=== PATIENT | female | born 1975 | race Caucasian/White ===

== ENCOUNTER 2024-11-24 15:40 | Emergency (ER) | payer OTHER, SELFPAY ==
[2024-11-24 15:57] VITALS: BP 131/64; BP 162/78; PULSE 70; PULSE 90; RESP 18; TEMP 36.6; O2SAT 96; O2SAT 97; BMI 39.7
--- NOTE | 2024-11-24 16:09 | ED_ITS ---
HPI - Extremity Problem General Chief complaint: Extremity Injury, Upper Stated complaint: Bleeding from dialysis fistula Time Seen by Provider: 11/24/24 15:59 Source: patient, RN notes reviewed and old records reviewed Mode of arrival: ambulatory History of Present Illness ED Provider: Diane Cruz PA-C HPI Narrative: 49-year-old female with a past medical history ESRD on HD (M/W/F), on Coumadin, presenting to the ED via EMS complaining bleeding from dialysis fistula since this morning s/p full dialysis session. Reports intermittent bleeding since finishing dialysis at 09:30. States was able to control briefly at home with direct pressure. Admits to similar symptoms happening in the past. Denies lightheadedness/dizziness, injury, trauma, fall. Last INR unknown Related Data Allergies Allergy/AdvReac Type Severity Reaction Status Date / Time egg [EGG] Allergy Severe ANGIOEDEMA Verified 11/24/24 19:47 influenza virus vaccine, Allergy Severe ANAPHYLAXIS Verified 11/24/24 19:47 specific [Influenza Virus Vacc,Specific] Review of Systems 2 Review of Systems: Yes all other systems are reviewed and are negative Constitutional: Constitutional: Reports as per HPI [facility] Past Medical History Attestation statement: The following information was validated with the patient. Source: old records reviewed Social History Social History Smoked in Last 30 Days: No Use of substances other than those prescribed or required for medical reasons: No Advance Directives: No Advance Directives Information Provided: Yes Patient : No Physical Exam 2 Vital Signs: Vital Signs: Last Vital Signs Temp 98.5 F 11/24/24 22:20 Pulse 77 11/24/24 22:20 Resp 17 11/24/24 22:20 BP 152/78 H 11/24/24 22:20 Pulse Ox 98 11/24/24 22:20 O2 Del Method Room Air 11/24/24 22:20 BMI result Body Mass Index 39.7 Const: General: cooperative, healthy appearing and no acute distress O rientation/consciousness: patient oriented x3 Limitations: no limitations HEENT: Head: Yes normal to inspection and Yes atraumatic Ears: hearing grossly normal bilaterally General nose exam: Normal external nose present Face and sinus: Yes normal facial exam Eyes: General: appearance normal, both eyes and all related structures EOM: EOMs intact bilaterally Neck: Neck: Yes normal visual inspection and Yes no meningeal signs Resp: Effort & Inspection: normal respiratory effort and no respiratory distress Auscultation: clear to auscultation bilaterally Cardio: Rate: regular rate Heart sounds: S1 normal heart sound present and S2 normal heart sound present Skin: Other: + patient had noted to RUE, dressing rem jennifer, no active bleeding, however patient has started bleeding after coughing. Rashes: no rashes Wounds: no wounds Neuro: General: patient oriented x3, tone normal and no meningeal signs C ranial nerves: Yes CN's II-XII intact bilaterally Gait exam (Neuro): Normal gait present Extrem: General: Yes normal to inspection Course Course Course Narrative: -1651--no leukocytosis. H/H stable. Chronic CKD > had full dialysis today -1649--on re-evaluation active bleeding still appreciated with removal of pressure dressing > Surgicel and pressure dressing reapplied -1714--INR elevated >26, PT >320 --patient states she is on Coumadin for dialysis. States last INR check was Wednesday & was 2.5. Denies headache at present. Acting appropriate. > case d/w ED Attending Dr. Rangel, will repeat lab to ensure accuracy. Based on up-to-date recommendations options for minimal bleeding in the setting of INR greater than 5 include withholding Coumadin, holding Coumadin and giving vitamin K or more aggressive reversal therapies in the setting of significant bleeding -repeat INR 5.8, PT 68 >1814--pressure dressing removed. Surgicel still intact, no active bleeding. We will continue to monitor -2008--patient is still without any active bleeding. Instructed patient to hold her Coumadin dose tonight and tomorrow with repeat INR at dialysis (states her INR is supposed to be between 2.5 - 3). Strict return precautions discussed. Patient comfortable for discharge home at this time Results discussed with patient including worrisome signs and symptoms and strict return precautions, and when to return to the emergency department. They verbalized understanding and feel safe for discharge at this time. Medical Decision Making Medical Decision Making MDM Narrative: 49-year-old female with a past medical history ESRD on HD (M/W/F), on Coumadin, presenting to the ED via EMS complaining bleeding from dialysis fistula since this morning around 0930 s/p full dialysis session. On exam vital signs stable NAD, nontoxic appearing, recurred after coughing in the ED, was previously controlled with direct pressure. Direct pressure reapplied with ABD pad and Gomez wrap. R/o anemia. No evidence of infection Plan: Labs, observe and re-evaluate Please refer to course for remaining clinical decision making, interpretation of labs/imaging results, and discussions with consultants and/or family members. Differential Diagnosis Differential Diagnoses: The differential diagnosis associated with the presentation includes As above Admission/Observation Consideration of admission/observation: Escalation of care including admission/observation considered Lab Data MDM Lab Attestation statement: I reviewed the patient's lab results. 11/24/24 16:21 11/24/24 16:21 Labs: Lab Results 11/24/24 11/24/24 Range/Units 16:21 17:22 WBC 5.6 (4.8-10.8) X10*3/uL RBC 3.57 L (4.20-5.50) X10*6/uL Hgb 11.0 L (12.0-16.0) g/dl Hct 34.5 L (37.0-47.0) % MCV 96.6 (80.0-98.0) fL MCH 30.8 (27.0-33.0) pg MCHC 31.9 (31.0-35.0) g/dl RDW 17.1 H (11.0-16.0) % Plt Count 153 L (160-400) X10*3/uL MPV 12.2 (9.4-12.3) fL Immature Gran % (Auto) 0.5 H (0.0-0.4) % Neut % (Auto) 74.2 H (45-73) % Lymph % (Auto) 12.8 L (20-40) % [place] % (Auto) 6.5 (2-11) % Eos % (Auto) 5.6 H (0-4) % Baso % (Auto) 0.4 (0-2) % Lymph # (Auto) 0.7 L (1.2-4.9) X10*3/uL [place] # (Auto) 0.4 (0.1-1.2) X10*3/uL Eos # (Auto) 0.3 (0.0-0.4) X10*3/uL Baso # (Auto) 0.0 (0.0-0.2) X10*3/uL Abs Immat Gran (auto) 0.03 (0.00-0.03) X10*3/uL Absolute Neuts (auto) 4.1 (2.0-8.3) x10*3/uL Absolute Nucleated RBC 0.000 (0.0-0.012) X10*3/uL Nucleated RBC % (auto) 0.0 (0.0-0.2) /100WBC PT > 320.0 H 68.0 H D (10.9-12.4) SEC INR > 26.0 H* 5.8 H* D (0.9-1.1) Sodium 140 (135-145) mmol/L Potassium 3.9 (3.3-5.1) mmol/L Chloride 101 (96-108) mmol/L Carbon Dioxide 28 (22-29) mmol/L Anion Gap 15 (12-20) BUN 15 (9-16) mg/dL Creatinine 4.60 H* (0.5-1.4) mg/dL Estim Creat Clear Calc 18.3 Estimated GFR 10 Random Glucose 113 (60-115) mg/dL Calcium 7.7 L (8.4-10.2) mg/dL Radiology Impression Discussion of test interpretation with radiology: I have reviewed the radiologist's reading. External Record Review External record reviewed: Inpatient record, Office record, Outpatient record, Prior outpatient labs, Prior outpatient radiology, Primary care record and Outside ED record Tests considered The following testing was considered but not selected: As above Chronic Conditions Patient?s care impacted by: Other (ESRD on HD) Social Determinants Patient?s care significantly limited by Social Determinants of Health including: Other Social Determinant of Health Critical Care Time Critical Care Time Critical Care Time: Yes Total Critical Care Time: 40 Attestation: I have personally provided critical care time exclusive of time spent on separately billable procedures. Time includes review of lab data, radiology results, discussion with consultants, and monitoring for potential decompensation. Intervention performed as documented. Discharge Plan Discharge Clinical Impression: Hemorrhage of arteriovenous fistula, Supratherapeutic INR Patient Disposition: Home, Self-Care Instructions: Elevated INR (ED) Additional Instructions: YOUR INR WAS ELEVATED TO 5.8 TODAY. PLEASE HOLD YOUR COUMADIN TONIGHT AND TOMORROW WITH REPEAT INR AT DIALYSIS Surgicel can be removed at dialysis, please apply saline/water to area prior to removing Surgicel/dressing If bleeding recurs, you are soaking through dressing, you have lightheadedness/dizziness return to the ED immediately Referrals: Physician,Unknown J [Primary Care Provider] - 2 days Interventions: ED Discharge Assessment Last Done: 11/24/24 22:20 Discharge Date/Time: 11/24/24 22:21 Print Language: Surinamese
[2024-11-24 16:27] LABS: MANUAL DIFF FLAG NO
[2024-11-24 16:28] LABS: Basophils Percent Auto 0.4 % (0-2); Eosinophils Absolute Auto 0.3 X10*3/uL (0.0-0.4); Eosinophils Percent Auto 5.6 % (0-4); Hematocrit 34.5 % (37.0-47.0); Imm Gran Abs Auto 0.03 X10*3/uL (0.00-0.03); Imm Gran Pct Auto 0.5 % (0.0-0.4); Lymphocytes Absolute Auto 0.7 X10*3/uL (1.2-4.9); Lymphocytes Percent Auto 12.8 % (20-40); Mean Corpuscular HGB Conc 31.9 g/dl (31.0-35.0); Mean Corpuscular Hemoglobin 30.8 pg (27.0-33.0); Mean Corpuscular Volume 96.6 fL (80.0-98.0); Mean Platelet Volume 12.2 fL (9.4-12.3); Monocytes Absolute Auto 0.4 X10*3/uL (0.1-1.2); Monocytes Percent Auto 6.5 % (2-11); Neutrophils Absolute Auto 4.1 x10*3/uL (2.0-8.3); Neutrophils Percent Auto 74.2 % (45-73); Platelet Count 153 X10*3/uL (160-400); Red Blood Count 3.57 X10*6/uL (4.20-5.50); Red Cell Distribution Width 17.1 % (11.0-16.0); White Blood Count 5.6 X10*3/uL (4.8-10.8)
[2024-11-24 16:46] LABS: Anion Gap 15 (12-20); Blood Urea Nitrogen 15 mg/dL (9-16); Calcium 7.7 mg/dL (8.4-10.2); Carbon Dioxide 28 mmol/L (22-29); Chloride 101 mmol/L (96-108); Creatinine Clr Calc Pharmacy 18.3; Estimated Glomerular Filt Rate 10; Glucose Random 113 mg/dL (60-115); Potassium 3.9 mmol/L (3.3-5.1); Sodium 140 mmol/L (135-145)
--- OUTSIDE RECORDS SUMMARY | 2024-11-24 16:55 | XMS_ITS | Encounter Summary ---
Author Organization [facility] Address [address] [place] [address] Care Team Providers Care Dye Blender Name Role Phone Jose Amaya Primary Care Provider Reason for Visit * Reason Comments Care Coordination This CHW contacted t he Encounter Details Date Type Department Care Team (Late st Contact Info) Description 02/02/2017 Interim Notes [facility] [address] [place] [address] Kristy Mesa, Community Health Worker [address] [place] [address] Social History Tobacco Use Types Packs/Day Years Used Date Smoking Tobacco: Former Smokeless Tobacco: Never Alcohol Use Standard Drinks/Week Comments No 0 (1 standard drink = 0.6 oz pur e alcohol) Comments No Sex and Gender Information Value Date Recorded Sex Assigned at Male 06/04/2017 11:11 AM PDT Legal Sex Female 11:57 AM PDT Gender Identity Male 06/04/2017 11:11 AM PDT Sexual Orientation Straight 06/04/2017 11 :11 AM PDT Occupation Industry Job Start Date Job End Date disabled Not on file Not on file Not on file documented as of this encounter Plan of Treatment Not on file documented as of this encounter Visit Diagnoses Not on filedocumented in this encounter Care Teams Dye Blender Relationship Specialty Start Date End Date Jose Amaya PA [address] [place] [address] PCP - General Internal Medicine 01/18/17 10/03/24 documented as of this encounter
--- OUTSIDE RECORDS SUMMARY | 2024-11-24 16:56 | XMS_ITS | Encounter Summary ---
Author Organization [facility] Address [address] [place] [address] Care Team Providers Care Psychological Operations Officer Name Role Phone Jose Amaya Primary Care Provider [phone] Reason for Visit * Reason Comments Care Coordination contacted the [facility] regarding Dialysis Center transfer. Encounter Details Date Type Department Care Team (Late st Contact Info) Description 02/19/2017 Interim Notes [facility] [address] [place] [address] Kristy Mesa, Community Health Worker [address] [place] [address] Social History Tobacco Use Types Packs/Day Years [...] on filedocumented in this encounter Care Teams Psychological Operations Officer Relationship Specialty Start Date End Date Jose Amaya PA [address] [place] [address] PCP - General Internal Medicine 01/18/17 10/03/24 documented as of this encounter
--- OUTSIDE RECORDS SUMMARY | 2024-11-24 16:56 | XMS_ITS | Encounter Summary ---
Author Organization [facility] Address [address] [place] [address] Care Team Providers Care Director On Air Name Role Phone Jose Amaya Primary Care Provider [phone] Reason for Visit * Reason Comments Care Coordination CHW returned patient s message. Encounter Details Date Type Department Care Team ([facility] st Contact Info) Description 02/19/2017 Interim Notes [facility] [address] [place] [address] Kristy Mesa, Community Health Worker [address] [place] [address] Social History Tobacco Use Types Packs/Day Years [...] on filedocumented in this encounter Care Teams Director On Air Relationship Specialty Start Date End Date Jose Amaya PA [address] [place] [address] PCP - General Internal Medicine 01/18/17 10/03/24 documented as of this encounter
--- OUTSIDE RECORDS SUMMARY | 2024-11-24 16:56 | XMS_ITS | Encounter Summary ---
Author Organization [facility] Address [address] [place] [address] Care Team Providers Care Post Closer Name Role Phone Jose Amaya Primary Care Provider [phone] Reason for Visit * Reason Comments Care Coordination This CHW contacted t he patient to follow up on the patients Dialysis Center transfer. Encounter Details Date Type Department Care Team (Late st Contact Info) Description 02/10/2017 Interim Notes [facility] [address] [place] [address] Kristy Mesa, Community Health Worker [address] [place] [address] Social History Tobacco Use Types Packs/Day Years [...] on filedocumented in this encounter Care Teams Post Closer Relationship Specialty Start Date End Date Jose Amaya PA [address] [place] [address] PCP - General Internal Medicine 01/18/17 10/03/24 documented as of this encounter
--- OUTSIDE RECORDS SUMMARY | 2024-11-24 16:56 | XMS_ITS | Encounter Summary ---
Author Organization [facility] Address [address] [place] [address] Phone Care Team Providers Care Sheriff'S Detective Name Role Phone Unavailable Primary Care Provider Unavailabl e Encounter Details Date Type Department Care Team (Late st Contact Info) Description 11/10/2024 Treatment [facility] [address] [place] [address] Dionna Rubio MD [address] [place] [address] End stage renal disease; Dependence on renal dialysis Social History Tobacco Use Types Packs/Day Years Used Date Smoking Tobacco: Never Alcohol Use Standard Drinks/Week Comments No 0 (1 standard drink = 0.6 oz pur e alcohol) Comments Unknown Sex and Gender Information Value Date Recorded Sex Assigned at Not on file Legal Sex Female 5:02 PM EST Gender Identity Not on file Sexual Orientation Not on file documented as of this encounter Miscellaneous Notes * Dialysis Note - Dionna Rubio MD - 11/10/2024 12:00 AM EST Patient: Raine Hair : 1975 Note Type: Dialysis Rounds-Basic Service Date: 11/10/2024 Appropriate patient consent obtained. This patient was personally seen for a basic visit as part of routine monthly dialysis care for end stage renal disease. Attending Finance Accounting Internship: DIONNA RUBIO MD Dialysis Location: [facility] Schedule: Shift: 1 ADEQUACY ASSESSMENT Kt/V, Natural Log 1.26 (10/18/24) 1.30 (09/20/24) 1.24 (08/23/24) UREA REDUCTION RATIO (%) 67 (10/18/24) 69 (09/20/24) 66 (08/23/24) BUN 45 (10/18/24) 54 (09/20/24) 50 (08/23/24) BUN Post Dialysis 15 (10/18/24) 17 (09/20/24) 17 (08/23/24) Creatinine 8.15 (10/18/24) 8.38 (09/20/24) 9.03 (08/16/24) Bicarbonate (CO2) 25 (10/18/24) 26 (09/20/24) 24 (08/16/24) Sodium 139 (10/18/24) 139 (09/20/24) 138 (08/16/24) ANEMIA ASSESSMENT Hgb 10.3 (11/01/24) 10.2 (10/18/24) 9.2 (10/11/24) Iron Saturation (TSat) 28 (10/18/24) 28 (09/20/24) 60 (08/16/24) Ferritin 993 (10/18/24) 980 (09/20/24) 1,102 (08/16/24) Iron 60 (10/18/24) 62 (09/20/24) 122 (08/16/24) TIBC 216 (10/18/24) 221 (09/20/24) 203 (08/16/24) MCV 100.6 (10/18/24) 97.9 (09/20/24) 100.0 (08/16/24) Platelets 143 (10/18/24) 121 (09/20/24) 79 (08/16/24) BMM ASSESSMENT Calcium, Adjusted Total 8.8 10/18/24 8.5 09/20/24 8.5 08/16/24 Calcium 8.8 10/18/24 8.5 09/20/24 8.5 08/16/24 Phosphorus, Serum 5.0 10/18/24 5.0 09/20/24 5.5 08/16/24 Ca*PO4 44.0 10/18/24 42.5 09/20/24 46.8 08/16/24 PTH, Intact 2,899 10/18/24 3,640 09/20/24 3,693 08/16/24 Magnesium 2.0 10/18/24 2.1 09/20/24 2.0 08/16/24 Alkaline Phosphatase 592 10/18/24 559 09/20/24 562 08/16/24 Aluminum 5 09/20/24 NUTRITION ASSESSMENT Albumin 4.1 10/18/24 4.1 09/20/24 4.2 08/16/24 Potassium 4.3 10/18/24 4.4 09/20/24 5.0 08/16/24 ADDITIONAL LABS White Blood Cells 7.0 (10/18/24) 6.5 (09/20/24) 6.2 (08/16/24) Cholesterol 118 (09/20/24) HDL 45 (09/20/24) LDL-Calc 61 (09/20/24) Triglycerides 62 (09/20/24) Hep B Surface Antibody 94 (09/20/24) Uric Acid 6.7 (09/20/24) ADDITIONAL COMMENT COMMENTS: 10/16/24 stable 10/23/24 same issues 11/03/24 no new probs 11/10/24 doing ok 08/28/24 same issues 09/12/24 stable 09/25/24 doing ok 05/17/24 no new issues 05/29/24 stable 06/07/24 doing ok 06/19/24 same issues 06/26/24 stable 07/03/24 no new issurs 07/12/24 stable 07/17/24 same issues 07/29/24 stable 08/02/24 same issues 08/08/24 stable 08/14/24 doing same 08/21/24 no new issues 10/04/24 same issues 10/11/24 stable Signed by: DIONNA RUBIO MD on 11/10/2024 at 11:07:03 PM documented in this encounter Plan of Treatment Not on file documented as of this encounter Visit Diagnoses Diagnosis End stage renal disease Dependence on renal dialysis documented in this encounter
--- OUTSIDE RECORDS SUMMARY | 2024-11-24 16:56 | XMS_ITS | Clinical Summary ---
Author Organization [facility], Address [address] [place] [address] Phone Care Team Providers Care [employer] Inspector Name Role Phone Unavailable Primary Care Provider Unavailabl e Allergies Active Allergy Reactions Criticality Noted Date Comments Egg Yolk Rash High 05/21/2016 Gentamicin 11/13/2020 Influenza Vaccines 11/13/2020 Iodinated Contrast Media 11/13/2020 Levofloxacin Anaphylaxis,Other (s ee comments) High 05/21/2016 Prednisone Other (see comments) 01/07/2021 Respiratory Syncytial Virus Immune Globulin Other (see comments) 01/07/2021 Vancomycin Other (see comments) 05/21/2016 Medications acetaminophen (TYLENOL) 325 MG tablet Take 325 mg by mouth every 4 (four) hours NEEDED 7 Active ammonium lactate (LAC-HYDRIN) 12 % lotion Apply topically Active cetirizine (ZyrTEC) 10 MG tablet 1 Active cholecalciferol (VITAMIN D-3) 1.25 MG (28428 UT) capsule Take 1 capsule by mouth 1 (one) time per week 0 Active cloNIDine (CATAPRES) 0.1 MG tablet Take 1 tablet by mouth 1 (one) time each day 0 Active Docusate Sodium (DSS) 100 MG capsule Take 100 mg by mouth 2 (two) times a day 8 Active fluticasone (FLONASE) 50 MCG/ACT nasal spray 1 spray 2 (two) times a day 1 Active loratadine (Claritin) 10 MG tablet Take 1 tablet by mouth 1 (one) time each day 7 Active levothyroxine (SYNTHROID, LEVOTHROID) 137 MCG tablet Take 1 tablet by mouth 1 (one) time each day Active midodrine (PROAMATINE) 5 MG tablet Take 1 tablet by mouth 0 Active OLANZapine (ZyPREXA) 5 MG tablet Take 1 tablet by mouth every night 8 Active omeprazole (PriLOSEC) [address] capsule Take 20 mg by mouth 1 (one) time each day 7 Active warfarin (COUMADIN) 4 MG tablet Take 2 mg by mouth 1 (one) time each day 7 Active olopatadine (Patanol) 0.1 % ophthalmic solution 1 drop by Other route INTO AFFECTED EYE Active albuterol HFA (PROVENTIL HFA;VENTOLIN HFA) 108 (90 Base) MCG/ACT inhaler 2 puffs every 4 (four) hours 90mcg 1 Active montelukast (SINGULAIR) 10 MG tablet Take 10 mg by mouth Active fluticasone HFA (FLOVENT HFA) 110 MCG/ACT inhaler Inhale 2 puffs 8 Active diphenhydrAMINE (BENADRYL) 50 MG tablet Take 50 mg by mouth Active Clindamycin Phos-Benzoyl Perox gel APPLY TOPICALLY TO OUTBREAKS ON BUTTOCKS IN THE MORNING AND IN THE EVENING 6 Active cycloSPORINE (RESTASIS) 0.05 % ophthalmic emulsion 1 drop Active Banophen 50 MG capsule TAKE 1 CAPSULE BY MOUTH EVERY 6 HOURS NEEDED FOR ITCHING. 1 Active mupirocin (BACTROBAN) 2 % ointment Apply topically 1 (one) time each day 22 g 1 3 Active cloNIDine (CATAPRES) 0.2 MG tabletIndications :Essential (primary) hypertension TAKE 1 TABLET BY MOUTH IN THE MORNING AND TAKE 1 TABLET BY MOUTH IN THE EVENING 30 tablet 1 4 Active doxazosin (CARDURA) 4 MG tablet Take 1 tablet (4 mg total) by mouth 1 (one) time each day 30 tablet 11 4 06/05/20 25 Active sevelamer carbonate (RENVELA) 800 MG tablet TAKE 2 TABLETS BY MOUTH 3 (THREE) TIMES A DAY WITH MEALS 360 tablet 11 4 Active B Ygdzcss-R-Bxiyu Acid (Nephro Vitamins) 0.8 MG tabletIndications :Schizophrenia (HCC) TAKE 1 TABLET BY MOUTH ONCE DAILY 90 tablet 1 4 Active Velphoro 500 MG chewable tablet CHEW AND SWALLOW 1 TABLET 3 (THREE) TIMES A DAY WITH MEALS 90 tablet 1 4 Active carvedilol (COREG) 12.5 MG tablet Take 1 tablet (12.5 mg total) by mouth in the morning and 1 tablet (12.5 mg total) in the evening. Take with meals. 60 tablet 11 5 10/23/19 26 Active Active Problems Problem Noted Date Diagnosed Date Psychotic disorder 01/09/2021 Hypothyroidism 01/09/2021 Essential hypertension 01/09/2021 Hyperparathyroidism due to renal insufficiency 0 01/09/2021 Hyperkalemia 01/09/2021 Gastroesophageal reflux disease 01/09/2021 Libia's thyroiditis 01/09/2021 Anemia in chronic kidney disease 01/09/2021 Disorder of transplanted kidney 01/09/2021 Chronic bronchitis 01/09/2021 Dependence on renal dialysis 01/09/2021 End stage renal disease 01/09/2021 Anxiety state 01/09/2021 Anemia 01/09/2021 Deep venous thrombosis 11/14/2020 Bilateral acquired blindness of eyes 11/14/2020 Moderate persistent asthma 06/04/2017 Long-term current use of anticoagulant 6 History of renal transplant 01/10/2013 Overview (01/09/2021): Overview: Dr Brain herrera.transplant 09/25 It was removed in 2013 , pt is on dialysis Asthma 01/10/2013 Encounters Date Type Department Care Team Description 11/10/2024 Treatment [facility] [address] [phone] Kirill Stoll MD End stage renal disease; Dependence on renal dialysis 11/03/2024 Treatment [facility] [address] [place] [phone] Kirill Stoll MD 10/23/2024 [facility] [address] [phone] Kirill Stoll MD 10/16/2024 Treatment [facility] [address] [phone] Kirill Stoll MD 10/11/2024 Treatment [facility] [address] [address] Kirill Stoll MD 10/04/2024 Treatment [facility] [address] [phone] Kirill Stoll MD 09/25/2024 Treatment [facility] [address] [phone] Kirill Stoll MD 09/15/2024 Treatment [facility] [address] [phone] Kirill Stoll MD 09/12/2024 Treatment [facility] [address] [address] Kirill Stoll MD 08/28/2024 Treatment [facility] [address] [address] Kirill Stoll MD from Last 3 Months Social History Tobacco Use Types Packs/Day Years Used Date Smoking Tobacco: Never Alcohol Use Standard Drinks/Week Comments No 0 (1 standard drink = 0.6 oz pur e alcohol) Comments Unknown Sex and Gender Information Value Date Recorded Sex Assigned at Not on file Legal Sex Female 5:02 PM EST Gender Identity Not on file Sexual Orientation Not on file Last Filed Vital Signs Vital Sign Reading Time Taken Comments Blood Pressure 160/77 01/06/2021 1:57 PM EDT Pulse 93 01/06/2021 1:57 PM EDT Temperature 36.1 ??C (97 ??F) 01/06/2021 1:57 PM EDT Respiratory Rate 18 03/03/2019 12:00 PM EDT Oxygen Saturation 97% 03/03/2019 12:00 PM EDT Inhaled Oxygen Concentration - - Weight 118 kg (260 lb 2.3 oz) 01/06/2021 1:57 PM EDT Height 172.7 cm (5' 8 ) 03/03/2019 12:00 PM EDT Body Mass Index 39.55 03/03/2019 12:00 PM EDT Plan of Treatment Health Maintenance Due Date Last Done Comments Breast Cancer Screening 1973 Hepatitis B Vaccine (1 of 5 - Risk Dialysis 4-dose series) 1993 Pneumococcal Vaccine: Pediat rics (0 to 5 Years) and At-Risk Patients (6 to 64 Years) (2 of 2 - PCV) 06/12/2018 06/12/2017 Colonoscopy (Post-Transplant Patient) 01/09/2021 Mammogram (Post-Transplant Patient) 01/09/2021 Pelvic Exam (Post-Transplant Patient) 01/09/2021 Diabetes: Hemoglobin A1C 10/19/2024 022, 03/18/2022, 12/17/2021, Additional history exists Diabetes: Ophthalmology Exam 10/19/2024 Diabetes: Pedal Pulse Checked 10/19/2024 Diabetes: Sensory Foot Exam 10/19/2024 Diabetes: Visual Foot Exam 10/19/2024 Procedures Procedure Name Priority Date/Time Associated Diagnosis Comments HEMOGLOBIN Routine 11/22/2024 3:00 AM EDT PTH, INTACT Routine 11/15/2024 3:00 AM EST TRANSFERRIN SATURATION Routine 3:00 AM EST PROTEIN, TOTAL, SERUM Routine 11/15/2024 3:00 AM EST MAGNESIUM Routine 11/15/2024 3:00 AM EST ELECTROLYTE PANEL Routine 11/15/2024 3:0 0 AM EST LACTATE DEHYDROGENASE Routine 11/15/2024 3:00 AM EST LIH (HC) Routine 11/15/2024 3:00 AM EST CREATININE, SERUM Routine 11/15/2024 3:0 0 AM EST GLUCOSE, RANDOM Routine 11/15/2024 3:00 AM EST BILIRUBIN, TOTAL Routine 11/15/2024 3:00 AM EST CALCIUM PHOSPHORUS PRODUCT, ADJUSTED (HC) Routine 11/15/2024 3:00 AM EST AST Routine 11/15/2024 3:00 AM EST ALT Routine 11/15/2024 3:00 AM EST ALKALINE PHOSPHATASE Routine 11/15/2024 3:00 AM EST FERRITIN Routine 11/15/2024 3:00 AM EST CBC AND DIFFERENTIAL Routine 11/15/2024 3:00 AM EST KT/V NATURAL LOG, URR (HC) Routine 11/15/2024 3:00 AM EST HEMOGLOBIN AND HEMATOCRIT, BLOOD Routine 11/01/2024 3:00 AM EST PTH, INTACT Routine 10/18/2024 3:00 AM EST TRANSFERRIN SATURATION Routine 3:00 AM EST PROTEIN, TOTAL, SERUM Routine 10/18/2024 3:00 AM EST ELECTROLYTE PANEL Routine 10/18/2024 3:0 0 AM EST MAGNESIUM Routine 10/18/2024 3:00 AM EST LIH (HC) Routine 10/18/2024 3:00 AM EST LACTATE DEHYDROGENASE Routine 10/18/2024 3:00 AM EST CREATININE, SERUM Routine 10/18/2024 3:0 0 AM EST AST Routine 10/18/2024 3:00 AM EST GLUCOSE, RANDOM Routine 10/18/2024 3:00 AM EST BILIRUBIN, TOTAL Routine 10/18/2024 3:00 AM EST ALT Routine 10/18/2024 3:00 AM EST ALKALINE PHOSPHATASE Routine 10/18/2024 3:00 AM EST CALCIUM PHOSPHORUS PRODUCT, ADJUSTED (HC) Routine 10/18/2024 3:00 AM EST FERRITIN Routine 10/18/2024 3:00 AM EST CBC AND DIFFERENTIAL Routine 10/18/2024 3:00 AM EST KT/V NATURAL LOG, URR () Routine 10/18/2024 3:00 AM EST HEMOGLOBIN Routine 10/11/2024 3:00 AM EST HEMOGLOBIN AND HEMATOCRIT, BLOOD Routine 10/04/2024 3:00 AM EST ALUMINUM LEVEL Routine 09/20/2024 3:00 AM EST PTH, INTACT Routine 09/20/2024 3:00 AM EST CONFIRMATION TEST HCV Routine 09/20/2024 3:00 AM EST HEPATITIS C ABS W/REFLEX RNA DETECTR Routine 09/20/2024 3:00 AM EST FERRITIN Routine 09/20/2024 3:00 AM EST HEPATITIS B SURFACE ANTIBODY QUANT Routine 09/20/2024 3:00 AM EST TRANSFERRIN SATURATION Routine 3:00 AM EST URIC ACID Routine 09/20/2024 3:00 AM EST PROTEIN, TOTAL, SERUM Routine 09/20/2024 3:00 AM EST ELECTROLYTE PANEL Routine 09/20/2024 3:0 0 AM EST MAGNESIUM Routine 09/20/2024 3:00 AM EST LIPID PANEL Routine 09/20/2024 3:00 AM EST LIH (HC) Routine 09/20/2024 3:00 AM EST LACTATE DEHYDROGENASE Routine 09/20/2024 3:00 AM EST GLUCOSE, RANDOM Routine 09/20/2024 3:00 AM EST BILIRUBIN, TOTAL Routine 09/20/2024 3:00 AM EST CREATININE, SERUM Routine 09/20/2024 3:0 0 AM EST AST Routine 09/20/2024 3:00 AM EST ALKALINE PHOSPHATASE Routine 09/20/2024 3:00 AM EST ALT Routine 09/20/2024 3:00 AM EST CALCIUM PHOSPHORUS PRODUCT, ADJUSTED (HC) Routine 09/20/2024 3:00 AM EST KT/V NATURAL LOG, URR (HC) Routine 09/20/2024 3:00 AM EST CBC AND DIFFERENTIAL Routine 09/20/2024 3:00 AM EST HEMOGLOBIN Routine 09/08/2024 3:00 AM EST HEMOGLOBIN AND HEMATOCRIT, BLOOD Routine 08/30/2024 3:00 AM EST SPECIAL CHEMISTRY Routine 06/17/2022 6:0 0 AM EDT from Last 3 Months or Most Recently Relevant to Health Maintenance Results * Hemoglobin (11/22/2024 3:00 AM EDT) Only the most recent of3 resultswithin the time period is included. Hgb 11.3 11.2 - 15.7 g/dL [facility] Hemoglobin x 3 33.9 33.6 - 47.1 g/dL [facility] 11/22/2024 3:00 AM EDT 11/23/2024 1:08 PM EDT Kirill Stoll MD LAB BLOOD ORDERABLES Final Re sult [facility] [address] [place] [address] * LIH (11/15/2024 3:00 AM EST) Only the most recent of3 resultswithin the time period is included. Lipemia Normal Normal [facility] Icterus Normal Normal [facility] Hemolysis Normal Normal [facility] 11/15/2024 3:00 AM EST 11/16/2024 3:47 PM EST Kirill Stoll MD LAB [id number] SOLICITED RESULTS Final Result Performing Organization Address City/[facility]/ZIP Co de Phone Number [facility] [address] [place] [address] * (ABNORMAL) Kt/V Natural Log, URR (11/15/2024 3:00 AM EST) Only the most recent of3 resultswithin the time period is included. Treatment Time 250 min [facility] Pre-Weight, lb 111.4 kg [facility] Post-Weight, lb 107.0 kg [facility] Ultrafiltration Rate 10 <=13 mL/kg/hr [facility] Comment: Recommend achieving Ultrafiltration Rate (UFR) <=10 mL/kg/hr References: Rhonda MOSS et al. Kidney Int. 2010; 79(2):250-257 BUN 54(H) 7 - 25 mg/dL [facility] BUN Post Dialysis 17 7 - 25 mg/dL [facility] UREA REDUCTION RATIO (%) 69 >=65 % [facility] Kt/V Natural Log 1.39 >=1.2 [facility] 11/15/2024 3:00 AM EST 11/16/2024 3:45 PM EST Kirill Stoll MD LAB [id number] SOLICITED RESULTS Final Result Performing Organization Address [facility] de Phone Number [facility] [address] [place] [address] * (ABNORMAL) Calcium Phosphorus Product, Adjusted (11/15/2024 3:00 AM EST) Only the most recent of3 resultswithin the time period is included. Albumin 4.1 3.6 - 5.4 g/dL [facility] Calcium 8.5(L) 8.6 - 10.3 mg/dL [facility] Phosphorus, Serum 5.3(H) 2.5 - 5.0 mg/dL [facility] Ca*PO4 45.0 <55.0 mg2/dL2 [facility] Calcium, Adjusted Total 8.5(L) 8.6 - 10.3 mg/dL [facility] CA*PO4 CORRCTD 45.0 <55.0 mg2/dL2 [facility] 11/15/2024 3:00 AM EST 11/16/2024 3:47 PM EST Kirill Stoll MD LAB [id number] SOLICITED RESULTS Final Result Performing Organization Address [facility] de Phone Number [facility] [address] [place] [address] * (ABNORMAL) TSAT (11/15/2024 3:00 AM EST) Only the most recent of3 resultswithin the time period is included. Iron 57 50 - 170 ug/dL [facility] Transferrin 128(L) 250 - 380 mg/dL [facility] TIBC 179(L) 211 - 406 ug/dL [facility] Iron Saturation (TSat) 32 22 - 52 % [facility] 11/15/2024 3:00 AM EST 11/16/2024 3:47 PM EST us Kirill Stoll MD LAB BLOOD ORDERABLES Final Re sult [facility] [address] [place] [address] * (ABNORMAL) CBC and Differential (11/15/2024 3:00 AM EST) Only the most recent of3 resultswithin the time period is included. DIFFERENTIAL MANUAL, 2 Not Indicated [facility] White Blood Cells 7.3 4.0 - 10.0 K/uL [facility] RBC 3.46(L) 3.93 - 5.22 M/uL [facility] Hgb 11.0(L) 11.2 - 15.7 g/dL [facility] Hemoglobin x 3 33.0(L) 33.6 - 47.1 g/dL [facility] Hematocrit 35.1 34.1 - 44.9 % [facility] MCV 101.4(H) 79.4 - 94.8 fL [facility] MCH 31.8 25.6 - 32.2 pg [facility] MCHC 31.3(L) 32.2 - 35.5 g/dL [facility] Platelets 124(L) 182 - 369 K/uL [facility] RDW 17.8(H) 11.7 - 14.4 % [facility] Neutrophils Relative 80.4(H) 34.0 - 71.1 % [facility] Lymphocytes Relative 8.2(L) 19.3 - 51.7 % [facility] Monocytes 6.7 4.7 - 12.5 % [facility] Eosinophils Relative 3.8 0.7 - 5.8 % [facility] Basophils Relative 0.5 0.1 - 1.2 % [facility] Immature Granulocytes 0.4 0.0 - 1.0 % [facility] 11/15/2024 3:00 AM EST 11/16/2024 3:45 PM EST us Kirill Stoll MD LAB BLOOD ORDERABLES Final Re sult Performing Organization Address [facility] de Phone Number [facility] [address] [place] [address] * ALT (11/15/2024 3:00 AM EST) Only the most recent of3 resultswithin the time period is included. ALT (SGPT) 23 10 - 49 U/L [facility] 11/15/2024 3:00 AM EST 11/16/2024 3:47 PM EST us Kirill Stoll MD LAB BLOOD ORDERABLES Final Re sult Performing Organization Address [facility] de Phone Number [facility] [address] [place] [address] * AST (11/15/2024 3:00 AM EST) Only the most recent of3 resultswithin the time period is included. AST (SGOT) 23 <34 U/L [facility] 11/15/2024 3:00 AM EST 11/16/2024 3:47 PM EST us Kirill Stoll MD LAB BLOOD ORDERABLES Final Re sult Performing Organization Address [facility] de Phone Number [facility] [address] [place] [address] * Protein, total (11/15/2024 3:00 AM EST) Only the most recent of3 resultswithin the time period is included. Total Protein 7.0 6.4 - 8.9 g/dL [facility] 11/15/2024 3:00 AM EST 11/16/2024 3:47 PM EST us Kirill Stoll MD LAB BLOOD ORDERABLES Final Re sult Performing Organization Address [facility] de Phone Number [facility] [address] [place] [address] * (ABNORMAL) Alkaline phosphatase (11/15/2024 3:00 AM EST) Only the most recent of3 resultswithin the time period is included. Alkaline Phosphatase 554(H) 46 - 116 U/L [facility] 11/15/2024 3:00 AM EST 11/16/2024 3:47 PM EST Kirill Stoll MD LAB BLOOD ORDERABLES Final Re sult Performing Organization Address [facility] de Phone Number [facility] [address] [place] [address] * (ABNORMAL) PTH, Intact (11/15/2024 3:00 AM EST) Only the most recent of3 resultswithin the time period is included. PTH, Intact 3,382(H) 160 - 721 pg/mL [facility] Comment: Suggested (KDIGO) ESRD maintenance range is two to nine times the upper normal limit (80.1 pg/mL) for the laboratory. 11/15/2024 3:00 AM EST 11/16/2024 3:47 PM EST us Kirill Stoll MD LAB BLOOD ORDERABLES Final Re sult Performing Organization Address [facility] de Phone Number [facility] [address] [place] [address] * Magnesium (11/15/2024 3:00 AM EST) Only the most recent of3 resultswithin the time period is included. Magnesium 2.0 1.9 - 2.7 mg/dL [facility] 11/15/2024 3:00 AM EST 11/16/2024 3:47 PM EST Kirill Stoll MD LAB BLOOD ORDERABLES Final Re sult Performing Organization Address [facility] de Phone Number [facility] [address] [place] [address] * (ABNORMAL) Lactate dehydrogenase (11/15/2024 3:00 AM EST) Only the most recent of3 resultswithin the time period is included. LDH 356(H) 120 - 246 U/L [facility] 11/15/2024 3:00 AM EST 11/16/2024 3:47 PM EST Kirill Stoll MD LAB BLOOD ORDERABLES Final Re sult Performing Organization Address [facility] Co de Phone Number [facility] [address] [place] [address] * (ABNORMAL) Glucose, random (11/15/2024 3:00 AM EST) Only the most recent of3 resultswithin the time period is included. Glucose 130(H) 74 - 109 mg/dL [facility] 11/15/2024 3:00 AM EST 11/16/2024 3:47 PM EST Kirill Stoll MD LAB BLOOD ORDERABLES Final Re sult Performing Organization Address [facility] de Phone Number [facility] [address] [place] [address] * (ABNORMAL) Ferritin (11/15/2024 3:00 AM EST) Only the most recent of3 resultswithin the time period is included. Ferritin 1,327(H) 10 - 291 ng/mL [facility] 11/15/2024 3:00 AM EST 11/16/2024 3:47 PM EST Kirill Stoll MD LAB BLOOD ORDERABLES Final Re sult Performing Organization Address [facility] Co de Phone Number [facility] [address] [place] [address] * (ABNORMAL) Creatinine, serum (11/15/2024 3:00 AM EST) Only the most recent of3 resultswithin the time period is included. Creatinine 8.84(H) 0.55 - 1.02 mg/dL [facility] 11/15/2024 3:00 AM EST 11/16/2024 3:47 PM EST Kirill Stoll MD LAB BLOOD ORDERABLES Final Re sult Performing Organization Address [facility] Co de Phone Number [facility] [address] [place] [address] * Bilirubin, total (11/15/2024 3:00 AM EST) Only the most recent of3 resultswithin the time period is included. Total Bilirubin 0.4 0.3 - 1.2 mg/dL [facility] 11/15/2024 3:00 AM EST 11/16/2024 3:47 PM EST Kirill Stoll MD LAB BLOOD ORDERABLES Final Re sult Performing Organization Address [facility] de Phone Number [facility] [address] [place] [address] * Electrolyte panel (11/15/2024 3:00 AM EST) Only the most recent of3 resultswithin the time period is included. Sodium 139 136 - 145 mEq/L [facility] Potassium 4.5 3.4 - 5.0 mEq/L [facility] Chloride 102 98 - 107 mEq/L [facility] Bicarbonate (CO2) 24 21 - 31 mEq/L [facility] Anion Gap 13 3 - 14 mEq/L [facility] 11/15/2024 3:00 AM EST 11/16/2024 3:47 PM EST Kirill Stoll MD LAB BLOOD ORDERABLES Final Re sult Performing Organization Address [facility] de Phone Number [facility] [address] [place] [address] * (ABNORMAL) Hemoglobin and hematocrit (11/01/2024 3:00 AM EST) Only the most recent of3 resultswithin the time period is included. Hgb 10.3(L) 11.2 - 15.7 g/dL [facility] Hematocrit 34.0(L) 34.1 - 44.9 % [facility] Hemoglobin x 3 30.9(L) 33.6 - 47.1 g/dL [facility] 11/01/2024 3:00 AM EST 11/03/2024 1:18 PM EST Kirill Stoll MD LAB BLOOD ORDERABLES Final Re sult Performing Organization Address [facility] de Phone Number [facility] [address] [place] [address] * Confirmation Test HCV (09/20/2024 3:00 AM EST) [facility] Hep C Ab Confirmation Not needed [facility] 09/20/2024 3:00 AM EST 09/21/2024 3:46 PM EST Kirill Stoll MD LAB BLOOD ORDERABLES Final Re sult Performing Organization Address [facility] de Phone Number [facility] [address] [place] [address] * HEPATITIS C ABS W/REFLEX RNA DETECTR (09/20/2024 3:00 AM EST) [facility] Hep C Virus Ab Non-Reacti ve Non-Reacti ve [facility] 09/20/2024 3:00 AM EST 09/21/2024 4:08 PM EST Kirill Stoll MD LAB [id number] SOLICITED RESULTS Final Result Performing Organization Address [facility] de Phone Number [facility] [address] [place] [address] * Aluminum level (09/20/2024 3:00 AM EST) [facility] Aluminum 5 1 - 20 ug/L [facility] 09/20/2024 3:00 AM EST 09/21/2024 3:46 PM EST Kirill Stoll MD LAB BLOOD ORDERABLES Final Re sult Performing Organization Address [facility] de Phone Number [facility] [address] [place] [address] * Hepatitis B Surface Antibody (09/20/2024 3:00 AM EST) Hep B Surface Antibody 94 mIU/mL [facility] Comment: Interpretation: <10: No Immunity >=10: Probable Immunity 09/20/2024 3:00 AM EST 09/21/2024 4:08 PM EST Kirill Stoll MD LAB BLOOD ORDERABLES Final Re sult Performing Organization Address [facility] de Phone Number [facility] [address] [place] [address] * (ABNORMAL) Uric Acid (09/20/2024 3:00 AM EST) Uric Acid 6.7(H) 2.3 - 6.6 mg/dL [facility] 09/20/2024 3:00 AM EST 09/21/2024 4:08 PM EST Kirill Stoll MD LAB BLOOD ORDERABLES Final Re sult Performing Organization Address [facility] de Phone Number [facility] [address] [place] [address] * (ABNORMAL) Lipid panel (09/20/2024 3:00 AM EST) Cholesterol 118 <200 mg/dL [facility] Comment: Optimal: ?<200 Borderline: ? 200-239 Higher Risk: ?>239 Triglycerides 62 <150 mg/dL [facility] Comment: Optimal: ?<150 Borderline High: ??150-199 High: ? 200-499 Very High: ?>499 HDL 45(A) >59 mg/dL [facility] Comment: Desirable: ?>59 Higher Risk: ?<40 LDL-Calc 61 <100 mg/dL [facility] Comment: Optimal: ?<100 Above Optimal: ?100-129 Borderline High: ??130-159 High: ? 160-189 Very High: ?>189 VLDL Cholesterol Placido 12 <30 mg/dL [facility] Comment: Optimal: ?<30 Borderline High: ??30-39 High: ? 40-99 Very High: ?>99 Chol/HDL Ratio 2.6 <3.3 [facility] Comment: Optimal: ?<3.3 Higher Risk: ?>6.2 09/20/2024 3:00 AM EST 09/21/2024 4:08 PM EST Kirill Stoll MD LAB BLOOD ORDERABLES Final Re sult Performing Organization Address City/[facility] de Phone Number [facility] [address] [place] [address] * SPECIAL CHEMISTRY (06/17/2022 6:00 AM EDT) Hemoglobin A1C 5.2 4.8 - 5.9 % [facility] 06/17/2022 6:00 AM EDT 06/18/2022 6:40 AM EDT Narrative [facility] - 06/17/2022 6:00 AM EDT Unless otherwise specified, test(s) performed at: [facility], [address] [place], [place] [id number] PROMOTIONS COORDINATOR: Javier Schmidt M.D. For any questions, please call customer service at FREQUENCY:QUARTERLY Resulting Agency Comment Specimen source: Blood Kirill Stoll MD LAB BLOOD BANK TEST ORDERABLE S Final Result Performing Organization Address [facility]/ZIP Co de Phone Number [facility] from Last 3 Months or Most Recently Relevant to Health Maintenance Insurance ([id number]) [place] [id number] [place] [phone] [place] [address] ([id number])
--- OUTSIDE RECORDS SUMMARY | 2024-11-24 16:56 | XMS_ITS | Encounter Summary ---
Author Organization [facility] Address [address] [place] [address] Care Team Providers Care Sales And Marketing Coordinator Name Role Phone Ricky Connell MD Primary Care Provider [phone] Reason for Visit * Reason Onset Date Comments Foot Swelling 11/13/2024 Encounter Details Date Type Department Care Team (Late st Contact Info) Description 11/13/2024 Telephone Internal Medicine - [place] [address] [place] [address] Ricky Connell MD [address] [place] [address] Foot Swelling Social History Tobacco Use Types Packs/Day Years Used Date Smoking Tobacco: Former Smokeless Tobacco: Never Alcohol Use Standard Drinks/Week Comments No 0 (1 standard drink = 0.6 oz pur e alcohol) Comments Unknown Sex and Gender Information Value Date Recorded Sex Assigned at Not on file Legal Sex Female 5:06 AM EST Gender Identity Not on file Sexual Orientation Not on file documented as of this encounter Progress Notes * Breonna Foster RN - 11/15/2024 9:27 AM EST 3 rd attempt to contact patient reached Left message for pt to call back. Please transfer call to triage nurse or re-message to [facility] Triage. * Breonna Foster RN - 11/14/2024 9:38 AM EST 2nd attempt to contact patient reached VM Left message for pt to call back. Please transfer call totriage nurse or re-message to [facility] Triage. * Breonna Foster RN - 11/13/2024 4:50 PM EST Attempted to reach patient obtained VM Left message for pt to call back. Please transfer call to triage nurse or re-message to [facility] Triage. * Osmin Agrawal - 11/13/2024 12:20 PM EST Patient call requires triage: Symptoms patient is presenting: pt stated she went to dialysis on Wednesday and was advised of the swelling of her feet and she is concerned and wants to know what to do. Pt stated she was advised to contact her pcp. How long has patient had these symptoms?: couple days For ALL patients calling to schedule any appointment (routine, sick visit, follow up, consult, etc.) in the outpatient setting please ask the following questions: Do you have fever of higher than 101, sore throat with difficulty swallowing or severe shortness ofbreath? no If YES to any of these above symptoms, send a message to triage and do not book. Red dot. If no, an audio or video visit should be booked. Have you had close contact with someone with Coronavirus in the last 14 days? no Have you traveled abroad? no Have you traveled recently to another state outside of [place], [place], [place], [place], [place], [place], [place]? no o If yes, did you quarantine for 14 days or have a negative covid test? no If yes to any of the above, patient is not to be scheduled in office until after 14 day quarantine or negative covid test. If pain or injury related was it due to an accident at work or from a motor vehicle accident? If yes, date of accident/Injury: No If yes, gather 3rd constitution party insurance information Third Constitution Party Information: n/a PCP: Ricky Cnonell MD Payor: [employer] MEDICARE / Plan: [employer] ONE CARE / Product Type: *No Product type* / documented in this encounter Plan of Treatment Upcoming Encounters Date Type Department Care Team (Late st Contact Info) Description 10/01/2025 1:00 PM EST Office Visit Pulmonolgy - [place] [address] [place] [address] Shameka Amezquita MD [address] [place] [address] documented as of this encounter Visit Diagnoses Not on filedocumented in this encounter Care Teams Sales And Marketing Coordinator Relationship Specialty Start Date End Date Ricky Connell MD [address] [place] [address] PCP - General Internal Medicine 07/27/17 documented as of this encounter
--- OUTSIDE RECORDS SUMMARY | 2024-11-24 16:56 | XMS_ITS | Encounter Summary ---
Author Organization [facility] Address [address] [place] [address] Care Team Providers Care Psychology Assistant Name Role Phone Jose Amaya Primary Care Provider [phone] Reason for Visit * Reason Comments Care Coordination [facility] contacted the javier christensen for follow up. Encounter Details Date Type Department Care Team (Late st Contact Info) Description 03/31/2017 Interim Notes [facility] [address] [place] [address] Kristy Mesa, Community Health Worker [address] [place] [address] Social History Tobacco Use Types Packs/Day Years [...] on filedocumented in this encounter Care Teams Psychology Assistant Relationship Specialty Start Date End Date Jose Amaya PA [address] [place] [address] PCP - General Internal Medicine 01/18/17 10/03/24 documented as of this encounter
--- OUTSIDE RECORDS SUMMARY | 2024-11-24 16:56 | XMS_ITS | Encounter Summary ---
Author Organization [facility] Address [address] [place] [address] Care Team Providers Care After School Teacher Name Role Phone Ricky Connell MD Primary Care Provider [phone] Encounter Details Date Type Department Care Team (Latest Contact Info) Description 11/03/2024 Anticoagulation - Warfarin Visit [facility] - [place] [address] [place] [phone] Dahiana Song LPN Deep vein thrombosis (DVT) of both upper extremities, unspecified chronicity, unspecified vein (CMS/HCC) (Primary Dx) Social History Tobacco Use Types Packs/Day Years [...] as of this encounter Plan of Treatment Upcoming Encounters Date Type Department Care Team (Late st Contact Info) Description 10/01/2025 1:00 PM EST Office Visit Pulmonolgy - [place] [address] [place] [phone] Shameka Amezquita MD [address] [place] [address] documented as of this encounter Procedures Procedure Name Priority Date/Time Associated Diagnosis Comments PROTHROMBIN TIME WITH INR Routine 11/03/2024 documented in this encounter Results * Prothrombin time with INR (11/03/2024) INR 3.0 Prothrombin Time POC Blood Venous blood specimen / Unknown 11/03/2024 Ricky Connell MD LAB BLOOD ORDERABLES Afua l Result documented in this encounter Visit Diagnoses Diagnosis Deep vein thrombosis (DVT) of both upper extremities, unspecified chronicity, unspecified vein (CMS/HCC)- Primary documented in this encounter Care Teams After School Teacher Relationship Specialty Start Date End Date Ricky Connell MD [address] [place] [address] PCP - General Internal Medicine 07/27/17 documented as of this encounter
--- OUTSIDE RECORDS SUMMARY | 2024-11-24 16:56 | XMS_ITS | Encounter Summary ---
Author Organization [facility] Address [address] [place] [address] Care Team Providers Care Office Services Coordinator Name Role Phone Jose Amaya Primary Care Provider [phone] Reason for Visit * Reason Comments Care Coordination [facility] contacted the javier christensen regarding Dialysis Centers. Encounter Details Date Type Department Care Team (Late st Contact Info) Description 04/05/2017 Interim Notes [facility] [address] [place] [address] Kristy Mesa, Community Health Worker [address] [place] [address] Social History Tobacco Use Types Packs/Day Years [...] on filedocumented in this encounter Care Teams Office Services Coordinator Relationship Specialty Start Date End Date Jose Amaya PA [address] [place] [address] PCP - General Internal Medicine 01/18/17 10/03/24 documented as of this encounter
--- OUTSIDE RECORDS SUMMARY | 2024-11-24 16:56 | XMS_ITS | Encounter Summary ---
Author Organization [facility] Address [address] [facility] [facility] [address] [place] [address] Phone Care Team Providers Care Sky Diver Name Role Phone Unavailable Primary Care Provider Unavailabl e Encounter Details Date Type Department Care Team (Late st Contact Info) Description 11/03/2024 Treatment [facility] [address] [facility] [address] [place] [address] Dionna Rubio MD [address] [facility] [address] [place] [address] Social History Tobacco Use Types Packs/Day Years [...] Dialysis Note - Dionna Rubio MD - 11/03/2024 12:00 AM EST Patient: Raine Hair : 1975 Note Type: Dialysis Rounds-Basic Telehealth Service Date: 11/03/2024 Telehealth encounter using audiovisual technology, performed according to state requirements. Appropriate patient consent obtained. This patient was personally seen for a basic visit as part of routine monthly dialysis care for end stage renal disease. Attending Laboratory Inspector: DIONNA RUBIO MD Dialysis Location: [facility] Schedule: Shift: 1 ADEQUACY ASSESSMENT Kt/V, [...] 10/23/24 same issues 11/03/24 no new probs 08/28/24 same issues 09/12/24 stable 09/25/24 doing ok 05/17/24 no new issues 05/29/24 stable 06/07/24 doing ok 06/19/24 same issues 06/26/24 stable 07/03/24 no new issurs 07/12/24 stable 07/17/24 same issues 07/29/24 stable 08/02/24 same issues 08/08/24 stable 08/14/24 doing same 08/21/24 no new issues 10/04/24 same issues 10/11/24 stable Signed by: DIONNA RUBIO MD on 11/03/2024 at 06:44:16 PM documented in this encounter Plan of Treatment Not on file documented as of this encounter Visit Diagnoses Not on filedocumented in this encounter
--- OUTSIDE RECORDS SUMMARY | 2024-11-24 16:56 | XMS_ITS | Encounter Summary ---
Author Organization [facility] Address [address] [place] [address] Care Team Providers Care Law Office Receptionist Name Role Phone Ricky Connell MD Primary Care Provider [phone] Reason for Visit * Reason Onset Date Comments Faxed Order 10/03/2024 [facility] Encounter Details Date Type Department Care Team (Late st Contact Info) Description 10/03/2024 Telephone Internal Medicine - [place] [address] [place] [address] Ricky Connell MD [address] [place] [address] Faxed Order ([facility] ) Social History Tobacco Use Types Packs/Day Years [...] as of this encounter Progress Notes * Raine Blackwell MA - 10/04/2024 8:21 AM EST Signed and faxed. * Norma Mortensen - 10/03/2024 10:11 AM EST Orders from [facility] placed in Ricky Connell MD bin. Please complete and fax back to [phone]. Thank you. documented in this encounter Plan of Treatment Upcoming Encounters Date Type Department Care Team (Late st Contact Info) Description 10/01/2025 1:00 PM EST Office Visit Pulmonolgy - [place] [address] [place] [address] Shameka Amezquita MD [address] [place] [address] documented as of this encounter Visit Diagnoses Not on filedocumented in this encounter Care Teams Law Office Receptionist Relationship Specialty Start Date End Date Ricky Connell MD [address] [place] [address] PCP - General Internal Medicine 07/27/17 documented as of this encounter
--- OUTSIDE RECORDS SUMMARY | 2024-11-24 16:56 | XMS_ITS | Data Portability ---
Author Organization [employer] [employer] Address [address] [place] [address] Care Team Providers Care Midwife Practitioner Name Role Phone EFREMMELISSAJOAKHILALICE Referring Provider [phone] TONY SUZIE Referring Provider [phone] Assessment Encounter Date Assessment Date Assessment LastModified by Organization Details LastModified Time 06/21/2023 06/21/2023 I provided real -time medical direction via phone for this encounter, and was available for additional phone based assistance as needed. I have reviewed and agree with the Assessment and Plan as documented by the Asphalt Plant Laborer. Patient given the opportunity to ask questions. As per above, patient with recurrent boils. Id has PCP appointment tomorrow and states that these occasionally get lanced there. Per exhibitions and collections manager on the scene there is no warmth there evidence of infection on exam. Please see pictures above. Advised to use either warm compresses also can sit in a warm bath with Epson salt otherwise continue with current plan to follow up with PCP tomorrow. We discussed the diagnostic uncertainty of home visits and the risk associated with this. In this case, the patient and I felt this to be an acceptable and reasonable amount of risk given the benefit of avoiding an ED visit. We discussed the need to seek care urgently/emergentl y in the setting of any new or worsening serious symptoms Not available 06/21/2023 14:48:36 07/08/2023 07/08/2023 I provided real -time medical direction via phone for this encounter, and was available for additional phone based assistance as needed. I have reviewed and agree with the Assessment and Plan as documented by the Asphalt Plant Laborer. Patient given the opportunity to ask questions. As per above, patient with a boil that is draining on the inner thigh. Has been present for a couple weeks although it is unclear at what stage it was at presentation. The patient has been receiving antibiotics with hemodialysis. She does have an allergy to vancomycin and did not know the name of the antibiotic she has been given when she completes her antibiotic course. Given the fact that is open and draining we encouraged her to continue with wound care and continue to get antibiotics with dialysis. There is no evidence per exhibitions and collections manager on the scene, of infection that is extending outside the boil and again it is draining. She does have hemodialysis scheduled for WednesdayJuly 09. Assessment: boil plan: Continue with IV antibiotics on hemodialysis and local wound care. We discussed the diagnostic uncertainty of home visits and the risk associated with this. In this case, the patient and I felt this to be an acceptable and reasonable amount of risk given the benefit of avoiding an ED visit. We discussed the need to seek care urgently/emergentl y in the setting of any new or worsening serious symptoms, particularly fever chills And extension of redness or erythema outside the area, any further skin changes. Not available 07/09/2023 08:36:39 02/20/2024 02/20/2024 As noted, we ammy e called to see this patient regarding concerns of COPD exacerbation. Evaluation in the field was performed by my exhibitions and collections manager colleague, as noted above, I provided real-time direction and supervision for this visit. The evaluation revealed 48y F with ESRD and COPD p/w COPD exacerbation. Hypertensive to 220 systolic, was at this range on Wednesday when at dialysis. Goes to dialysis tomorrow. Encouraged to talk w renal team about med adjustment. Totally asx now in terms of acute sequelae from HTN. Precautions. Sxs c/w COPD exacerbatoin, but has not yet increased her neb use (just at bedtime). Rec QID, start steroids. Precautions. Impression: COPD exacerbation Plan: steroids (1 dose now, 4 to pharmacy), psychosocial rehabilitation counselor on nebs Primary care, consider eval of inhaler regimen for COPD, eval HTN plan Disposition: We discussed the diagnostic uncertainty of home visits and the risk associated with this. In this case, the patient and I felt this to be an acceptable and reasonable amount of risk given the benefit of avoiding an ED visit. We discussed the need to seek care urgently/emergentl y in the setting of any new or worsening serious symptoms, particularly CP, worsening SOB, fever, SUMMERS, vision changes, confusion atilhou Not available 02/20/2024 21:22:03 04/03/2024 04/03/2024 service called f or painful LE edema found 49 xochitl with ESRD on HD MWF via R arm fistula COPD HTN reports received dialysis today c/o worsening painful b/l LE edema past 2 wks today b/l LE edema very painful, tender, purple skin VS noted af, 198/72 diffuse purple and dark mottled shiny skin over b/l LE edema very tender prior skin graft dark barone #LE edema mottled appearance and dark barone skin graft very concerning for impaired perfusion elev BP and edema suggesting urgent need for additional ultrafiltration HD -refer ED for eval [email or web address] Not available 04/03/2024 23:51:31 Plan of Treatment Reminders Order Date Submit Date Provider Last Modified By Organization Details Last Modified Time Details Appointments None recorded. Lab None recorded. Referral None recorded. Procedures None recorded. Surgeries None recorded. Imaging None recorded. Medication Orders prednisone 20 mg tablet 2023 024 [facility]/Pharmacy #[id number], [address] [place], [address], 4 21:16:55 mupirocin 2 % topical ointment [email or web address]/Pharmacy #[id number], [address] [facility] [place], [address], 3 08:31:50 Patient TargetsNo targets recorded. Patient InstructionsNo instructions recorded. Reason for Referral None Reported. Medical Equipment None Reported. Allergies Allergen ID Allergen Name Allergen Category Reaction Reaction Severity Criticality Documentation Date Start Date Code Code System Note Provider Name and Address Organization Details Recorded Time 2961 egg extract food,medi cation Not available Not available Not available 04/15/2023 26473 15 RxNorm Not Available [facility] - production 03:34:55 2962 Iodinated contrast media (substanc e) medicatio n Not available Not available Not available 04/15/2023 97967 2003 SNOMED Romana Sanders MD [address] [facility],[address], [place], [address], [facility] - [employer], [employer] 3 16:16:40 2963 influenza virus vaccine, live attenuate d Not available Not available Not available Not available 04/15/2023 97037 UNK Romana Sanders MD [address] [facility],[address], [place], [address], [facility] - [facility] 3 16:54:10 7094 vancomyci n medicatio n Not available Not available Not available 07/11/2024 36734 RxNorm Not Available [facility] - production 4 03:34:54 7095 levofloxa melissa medicatio n Not available Not available Not available 07/11/2024 30573 RxNorm Not Available [facility] - production 4 03:34:54 Medications Name Sig Start Date Stop Date Status Note LastModified by Organization Details LastModified Time acetaminophe n 325 mg tablet TAKE 2 TABLETS BY MOUTH EVERY 6 HOURS NEEDED FOR PAIN active Not Available Not Available No t Available carvedilol 12.5 mg tablet TAKE 1 TABLET BY MOUTH two (2) times a day WITH MEALS active Not Available Not Available No t Available ipratropium 0.5 mg-albuterol 3 mg (2.5 mg base)/3 mL nebulization soln 3 ml 2022 active Not Available Not Available Not Avai lable lidocaine 4 % topical patch Apply 1 patch by topical route. 2022 active Not Available Not Available Not Avai lable clindamycin HCl 300 mg capsule TAKE 1 CAPSULE BY MOUTH EVERY 8 HOURS FOR 7 DAYS active Not Available Not Available No t Available albuterol sulfate 2.5 mg/3 mL (0.083 %) solution for nebulization INHALE 1 VIAL VIA NEBULIZER EVERY 4 HOURS NEEDED FOR WHEEZING active Not Available Not Available No t Available ammonium lactate 12 % lotion APPLY TO THE AFFECTED AREA TOPICALLY TWO(2) TIMES A DAY active Not Available Not Available Not Available doxazosin 1 mg tablet TAKE 2 TABLETS BY MOUTH ONCE DAILY AT BEDTIME active Not Available Not Available No t Available cefpodoxime 200 mg tablet GIVE 2 TABLETS AFTER DIALYSIS (WEDNESDAY, WED, WEDNESDAY) active Not Available Not Available No t Available fluconazole 150 mg tablet TAKE 1 TABLET BY MOUTH ONCE FOR DOSE. AFTER completing doxycyline active Not Available Not Available N ot Available hydrocodone 5 mg-acetamino phen 325 mg tablet TAKE 1 TABLET BY MOUTH EVERY 4 HOURS NEEDED FOR PAIN FOR 3 DAYS active Not Available Not Available No t Available metronidazol e 0.75 % (37.5 mg/5 gram) vaginal gel INSERT 1 APPLICATORF UL VAGINALLY AT BEDTIME FOR 5 NIGHTS active Not Available Not Available No t Available polyvinyl alcohol 1.4 % eye drops Place 1 Drop into both eyes 3 times daily as needed for Other (dry eyes). active Not Available Not Available Not Available prednisone 20 mg tablet TAKE 2 TABLETS BY MOUTH EVERY DAY FOR 4 DAYS active Not Available Not Available No t Available omeprazole 40 mg capsule,reid yed release TAKE 1 CAPSULE BY MOUTH ONCE DAILY active Not Available Not Available No t Available warfarin 4 mg tablet TAKE 1 TABLET BY MOUTH ONCE DAILY active Not Available Not Available No t Available warfarin 3 mg tablet TAKE 1 TABLET BY MOUTH ONCE DAILY active Not Available Not Available No t Available clonidine HCl 0.2 mg tablet TAKE 1 TABLET BY MOUTH IN THE MORNING AND TAKE 1 TABLET BY MOUTH IN THE EVENING active Not Available Not Available Not Available hydromorphon e 2 mg tablet TAKE 1 TABLET BY MOUTH EVERY 6 HOURS NEEDED FOR SEVERE PAIN active Not Available Not Available Not Available famotidine 20 mg tablet TAKE 1 TABLET BY MOUTH two (2) times a day active Not Available Not Available No t Available carboxymethy lcellulose sodium 0.5 % eye drops INSTILL 1 DROP IN EACH EYE two (2) times a day active Not Available Not Available Not Available doxycycline monohydrate 100 mg capsule TAKE 1 CAPSULE BY MOUTH two (2) times a day FOR 10 DAYS; THEN TAKE 1 CAPSULE BY MOUTH ONCE DAILY active Not Available Not Available No t Available betamethason e dipropionate 0.05 % topical cream APPLY TO THE AFFECTED AREA TOPICALLY ON limbs AND trunk two (2) times a day active Not Available Not Available Not Available docusate sodium 100 mg capsule TAKE 1 CAPSULE BY MOUTH two (2) times a day NEEDED FOR CONSTIPATIO N active Not Available Not Available No t Available doxazosin 4 mg tablet Take 1 tablet (4 mg total) by mouth 1 (one) time each day active Not Available Not Available No t Available montelukast 10 mg tablet Take 1 Tablet by mouth at bedtime. active Not Available Not Available No t Available ammonium lactate 12 % topical cream APPLY TOPICALLY TO AFFECTED AREA TWO TIMES A DAY active Not Available Not Available Not Available mupirocin 2 % topical ointment APPLY TOPICALLY ONCE DAILY active Not Available Not Available N ot Available polyethylene glycol 3350 17 gram/dose oral powder DISSOLVE 17gm IN WATER AND DRINK ONCE DAILY active Not Available Not Available No t Available albuterol sulfate HFA 90 mcg/actuatio n aerosol inhaler INHALE 2 PUFFS BY MOUTH INTO THE lungs EVERY 4 HOURS NEEDED FOR COUGH OR FOR WHEEZING active Not Available Not Available No t Available ondansetron 4 mg disintegrati ng tablet PLACE 1 TABLET UNDER THE TONGUE TO DISSOLVE EVERY 8 HOURS active Not Available Not Available No t Available fluticasone propionate 50 mcg/actuatio n nasal spray,suspen jarad SPRAYS 2 SPRAYS IN EACH NOSTRIL ONCE DAILY active Not Available Not Available N ot Available doxycycline hyclate 100 mg tablet TAKE 1 TABLET BY MOUTH TWICE A DAY DIRECTED active Not Available Not Available No t Available loratadine 10 mg tablet TAKE 1 TABLET BY MOUTH TWICE A WEEK active Not Available Not Available No t Available fluticasone propionate 110 mcg/actuatio n HFA aerosol inhaler INHALE TWO PUFFS BY MOUTH INTO THE LUNGS two (2) times a day active Not Available Not Available Not Available ciclopirox 1 % shampoo Use every second or third day on scalp if needed active Not Available Not Available No t Available Allergy Relief (diphenhydra mine) 25 mg capsule TAKE ONE CAPSULE BY MOUTH DAILY AT BEDTIME active Not Available Not Available N ot Available sevelamer carbonate 800 mg tablet TAKE 2 TABLETS BY MOUTH 3 (THREE) TIMES A DAY WITH MEALS active Not Available Not Available N ot Available diclofenac 1 % topical gel APPLY 4 grams TOPICALLY two (2) times a day active Not Available Not Available Not Available Antiseptic Skin Cleanser (chlorhexidi ne) 4 % liquid Uses a body wash from the neck down twice a week to affected areas only if needed active Not Available Not Available No t Available Banophen 50 mg capsule Take 1 Capsule by mouth every 6 hours as needed for Itching. active Not Available Not Available No t Available Velphoro 500 mg chewable tablet CHEW AND SWALLOW 1 TABLET 3 (THREE) TIMES A DAY WITH MEALS active Not Available Not Available N ot Available Lactobacillu s acidophilus 100 mg (1 billion cell) capsule TAKE 1 CAPSULE BY MOUTH two (2) times a day active Not Available Not Available No t Available Lokelma 10 gram oral powder packet MIX THE CONTENTS OF 1 PACKET WITH 3 TABLESPOONS OF WATER AND DRINK EVERY WEDNESDAY, WEDNESDAY, WEDNESDAY, WEDNESDAY (NON DIALYSIS DAYS). SEPARATE MEDS BY 2 HOURS active Not Available Not Available No t Available [facility] COVID-19 Ag Self Test kit TEST DIRECTED TODAY active Not Available Not Available No t Available Nephro Vitamins 0.8 mg tablet TAKE 1 TABLET BY MOUTH ONCE DAILY active Not Available Not Available No t Available Vitals Date Recorded Body temperature Heart rate Body weight Respiratory rate Oxygen saturation Oxygen saturation in Arterial blood by Pulse oximetry Body height Systolic blood pressure Diastolic blood pressure Provider Name and Address Organization Details Last Updated DateTime 3 98.3 [degF] 78 /min 647960. 632 g 16 /min 98 % 98 % 172.72 cm 160 mm[Hg] 80 mm[Hg] Not Available [employer] 3 14:40:07 Date Recorded Body weight Heart rate Oxygen saturation Oxygen saturation in Arterial blood by Pulse oximetry Body height Respiratory rate Body temperature Systolic blood pressure Diastolic blood pressure Provider Name and Address Organization Details Last Updated DateTime 3 675084. 6 g 80 /min 98 % 98 % 152.4 cm 14 /min 98.5 [degF] 110 mm[Hg] 68 mm[Hg] Not Available [employer] 3 08:29:10 Date Recorded Heart rate Body weight Respiratory rate Body temperature Body height Oxygen saturation Oxygen saturation in Arterial blood by Pulse oximetry Systolic blood pressure Diastolic blood pressure Provider Name and Address Organization Details Last Updated DateTime 4 58 /min 173680. 104 g 18 /min 98.2 [degF] 172.72 cm 99 % 99 % 197 mm[Hg] 78 mm[Hg] Not Available [employer] 4 17:41:05 Date Recorded Heart rate Body temperature Oxygen saturation Oxygen saturation in Arterial blood by Pulse oximetry Respiratory rate Systolic blood pressure Diastolic blood pressure Provider Name and Address Organization Details Last Updated DateTime 4 75 /min 97.4 [degF] 98 % 98 % 18 /min 226 mm[Hg] 103 mm[Hg] Not Available [employer] 4 21:12:28 Date Recorded Body temperature Heart rate Oxygen saturation Oxygen saturation in Arterial blood by Pulse oximetry Respiratory rate Systolic blood pressure Diastolic blood pressure Provider Name and Address Organization Details Last Updated DateTime 4 98.9 [degF] 74 /min 95 % 95 % 18 /min 198 mm[Hg] 72 mm[Hg] Not Available [employer] [facility] 4 16:32:44 Social History None recorded. Functional Status None recorded. Mental Status None recorded. Family History Nothing Reported. Medical History No medical history recorded. Gynecological HistoryNo gynecological history recorded. Obstetrics History GPAL:G 0 P 0 0 0 0 Past Encounters Encounter ID Performer Location Encounter Start Date Encounter Closed Date Diagnosis/Indication Diagnosis SNOMED-CT Code Diagnosis ICD10 Code Diagnosis Note [id number] River Hernández MD [facility] - [facility] [address] [place] [phone] 07/16/2022 13:40:37 07/17/2022 14:35:50 Eruption [id number] R21 [id number] Tatyana Lance MD [facility] - [facility] [address] [place] [id number] 12/11/2022 11:10:28 12/14/2022 12:21:45 Fever [id number] R50.9 [id number] Tatyana Lance MD Main - [facility] [address] [place] [id number] 01/11/2023 17:22:42 01/13/2023 09:33:06 Dizziness [id number] R42 [id number] Alexis Roldan MD Main - [facility] [address] [place] [id number] 01/28/2023 20:02:16 01/29/2023 09:26:57 Pain of right knee region [id number] 79151 M25.561 Knee effusion of right knee with broken patella, seen by ortho and could tolerate drainage. Dialysis patient so unable to tolerate Toradol. Will rx tylenol and lidocaine patch. Per Veronica, jonyi cation, though reviewed multiple sources and for adults oral tylenol and topical lidocaine patch are safe to take together. [id number] Shayy Nogueira MD Main - [facility] [address] [place] [phone] 0 02/15/2023 15:33:48 02/16/2023 15:56:09 Pain in right lower limb [id number] M79.604 47 year old female with ESRD on dialysis with a history of peripheral vascular disease, being evaluated for several days of R lower extremity pain. Patient denies trauma or falls leading to pain, and does not have worsening swelling of the extremity. Patient without fever/chil ls. Patient is taking Coumadin regularly. Exam notable for bilateral lower extremity erythema without asymmetric al swelling or pain to palpation except for the R foot where tenderness was appreciate d. Patient with good capillary refill bilaterall y. Presentati on consistent with venous stasis, with atraumatic acute R foot pain of undetermin ed etiology. Differenti al diagnosis includes neuropathy vs peripheral vascular disease, crystal arthropath y or soft tissue injury, lower suspicion cellulitis or DVT at this time. Continue to monitor, maximize Tylenol dosing, FU PCP for additional work up if worsening or persistent symptoms. [id number] Angie Chin MD [facility] - [facility] [address] [place] [id number] 0 02/28/2023 16:31:56 03/04/2023 15:08:40 Swelling around eyes [id number] R22.0 [id number] Alexis Roldan MD Main - [facility] [address] [place] [id number] 0 03/01/2023 15:25:21 03/04/2023 15:17:46 Preseptal cellulitis [id number] L03.213 Swelling worse since yesterday (treated with Benadryl). Erythema and mild warmth on palpation. Patient legally blind so cannot report visual changes. Given worsening swelling, concern for preseptal cellulitis ; will rx MRSA coverage with Clindamyci n and Strep coverage with Cefpodoxim e. Call pharmacy to confirm renal adjustment of meds. Discussed red flag signs for which to seek care in ED. [id number] Romana Sanders MD Main - [facility] [address] [place] [id number] 0 04/15/2023 16:07:32 04/17/2023 11:01:49 Cough 18298726 R05.9 Lungs CTA after neb patient is requesting prednisone she states it normally helps her. Will give a short course of prednisone her blood sugar is stable. Given that she has a mostly non productive cough and no fevers, chills or sweats I do not think antibiotic s are indicated at this point-clin ically she is also not in congestive heart failurebut the patient would benefit from an outpatient or in-home chest x-ray- note sent to CP via [facility] [id number] Cristiana Ayala MD Main - [facility] [address] [place] [address] [id number] 06/21/2023 14:40:00 06/22/2023 00:59:30 External hordeolum [id number] H00.019 [id number] Cristiana Ayala MD Main - [facility] [address] [place] [address] [id number] 07/09/2023 08:29:08 07/12/2023 12:36:19 Furuncle of groin [id number] L02.224 [id number] Андрей Palm MD Main - [facility] [address] [place] [id number] 0 12/07/2023 17:41:03 12/07/2023 19:21:01 Viral gastroenteritis [id number] A08.4 This 48-year-ol d dialysis patient M-W-F has had persist diarrhea for the past week. She has managed to consume a lot of fluids. I suggested that she try taking immodium prn diarrhea and follow-up with her PCP. She has dialysis tomorrow. The patient agreed with this plan. [id number] Libra Ramírez MD Main - [facility] [address] [place] [id number] 02/20/2024 21:12:25 02/23/2024 04:25:06 Acute exacerbation of chronic obstructive pulmonary disease [id number] J44.1 [id number] Marbin German MD Main - [facility] [address] [place] [address] [id number] 0 04/03/2024 16:32:31 04/04/2024 09:49:50 Edema of lower extremity 927698744 R60.0 Health Concerns Section Related Observation LastModified by Organization Detai ls LastModified Time None Recorded Concern Status LastModified by Organization Details LastModified Time None Recorded Advance Directives Directive None Recorded Payers Encounter Date Sequence Insurance Name Policy Number Policy Pearl Covered Member ID Pearl Member ID Guarantor Name 06/21/2023 1 [facility] - DOS ON OR AFTER 2022 - DUAL ELIGIBLE - SHELTER OPTIONS AND ONE CARE (MEDICARE REPLACEMENT/ADV ANTAGE - HMO) Raine Hair [id number] Raine Hair 07/08/2023 1 [facility] - DOS ON OR AFTER 2022 - DUAL ELIGIBLE - SHELTER OPTIONS AND ONE CARE (MEDICARE REPLACEMENT/ADV ANTAGE - HMO) Raine Mccracken-Russo [id number] Raine Centeno Kaykay-Russo 12/07/2023 1 [facility] - DOS ON OR AFTER 2022 - DUAL ELIGIBLE - SHELTER OPTIONS AND ONE CARE (MEDICARE REPLACEMENT/ADV ANTAGE - HMO) Raine Kaykay-Russo [id number] Raine Centeno Kaykay-Russo 02/20/2024 1 [facility] - DOS ON OR AFTER 2022 - DUAL ELIGIBLE - SHELTER OPTIONS AND ONE CARE (MEDICARE REPLACEMENT/ADV ANTAGE - HMO) Raine Kaykay-Russo [id number] Raine Centeno Kaykay-Russo 04/03/2024 1 [facility] - DOS ON OR AFTER 2022 - DUAL ELIGIBLE - SHELTER OPTIONS AND ONE CARE (MEDICARE REPLACEMENT/ADV ANTAGE - HMO) Raine Mccracken-Russo [id number] Raine Mccracken-Russo Notes Date Note Type Note Provider Name and Address Organization Details Recorded Time 06/21/2023 text/html [facility] Nursing Assessment: Chief Complaints: Wound Care PMH: COPD/Asthma, Organ Transplant, Hypertension Allergies: Vancomycin, Levofloxacin, Egg Comments: Member reports having an abscess - Left groin - Denies drainage - Redness reported - It looks like a water bubble. Denies fever/chills. Elma Ayala MD [address] [place] [address],[address], [place], [phone] 06/21/2023 14:48:53 07/08/2023 text/html [facility] Nursing Assessment: Chief Complaints: Cellulitis PMH: COPD/Asthma, Organ Transplant, Hypertension Allergies: Vancomycin, Levofloxacin, Egg Comments: Patient reports raised area to left inner thigh with concern for infection/abscess ongoing for 2 weeks. Denies fever today but felt feverish 3 days ago. Area is tender and red. No drainage. ................... ................... ................... ................... ................... ................... ................... ........ 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 Pt given I know antibiotic IV at dialysis yesterday, and will go again tomorrow. Pt denies other pain or complaints. Pt pink warm and dry secondary exam unremarkable. Patient has approximately 1/2? x 1/2? x 1/4? raised red and yellow area on right upper thigh near groin. Some yellow pus noted. [facility] [place] patient attend dialysis to see if she needs more IV antibiotics as that is the best treatment for this condition. Patient advised to use warm compress, hot bath, and Neosporin. Red flags and patient education discussed. 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 ................... ................... ................... ................... ................... ................... ........ Disposition: Fulfilled Cristiana Ayala MD [address] [facility],[address], [place], [phone], [facility] 07/09/2023 08:37:05 12/07/2023 text/html [facility] Nurse Triage Notes (Farhana Elizondo): Chief Complaints: Pain, Weakness/Lethargy PMH: COPD/Asthma, Organ Transplant, Hypertension Allergies: Vancomycin, Levofloxacin, Egg Comments: Worsening diarrhea over the last week. Episodes of diarrhea after any PO intake. c/o weakness/fatigue, body cramping, and low back pain. Member on dialysis three times a week. Last dialysis treatment was yesterday Андрей Palm MD [address] [facility],[address], [place], [address], [employer] 12/07/2023 17:47:25 02/20/2024 text/html CRC Nurse Triage Notes (Rajat Campos): Reason For Request: Pt reporting that her lungs feel stiff, due to allergies and cold. Patient Reports: History of asthma, increased use of inhaler; COPD; Sputum increase ; Cough; Shortness of breath with exertionDenies: Cough, fever greater than 2 days COVID Exposure Pain with inspiration Chief Complaints: Shortness of Breath/DyspneaPMH: COPD/Asthma, Organ Transplant, HypertensionAllergi es: Vancomycin, Levofloxacin, EggComments: Sample Room Supervisor verified the member's name//address and phone number. Education provided on the response time and the member was advised to monitor reported s/s and seek emergency treatment if needed Member reports feeling unwell with a cough/cold and congestion. Allergies. SOB - Breathing is non-labored - The member is speaking full sentences. S/S x 2 weeks -Denies Fever - Wellness check requested [facility] [place] HPI: several days increased cough w SOB. no increase in nebs yet. no fever, confusion, dizziness. dialysis MWF. BP has been elevated, 210 systolic at dialysis last week. currently denies blurry vision, cp, headache, weakness........... ................... ................... ................... ................... ................... ................... ................ Asphalt Plant Laborer Note From Erick Iglesias: Pt reports two weeks of dry cough and mild KAUFFMAN. Pt denies CP, SOB at rest, f/n/v/d. Pt sts BP was elevated at dialysis on Wednesday and was treated with a nitro. Pt feels that she would benefit from steroids. Pt using nebulizer machine at night only. Pt is alert, NAD. Hypertensive, VS otherwise stable. Afebrile. Non focal neuro exam. Lungs CTA. Benign ABD exam. Trace LE edema. Pt treated with prednisone 40 mg. Pt instructed to discuss BP with HD doctor and increase nebs to q4-6h. Red flags reviewed. 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 ................... ................... ................... ................... ................... ................... ........ Disposition: Fulfilled Libra Ramírez MD [address] [facility],[address], [place], [address], [employer] 02/20/2024 21:50:37 04/03/2024 text/html CRC Nurse Triage Notes (Jenniffer Rodriguez): Reason For Request: Pt reporting edema & pain of both lower extremities Chief Complaints: Edema, Pain PMH: COPD/Asthma, Organ Transplant, Hypertension Allergies: Vancomycin, Levofloxacin, Egg Comments: Sample Room Supervisor verified the member's name//address and phone number. Member is a 49 yr old female PMH HD/ failed organ / COPD has PRN o2 when drops to 86%, but does not have the script at this time. HTN Allergies > Vanco / levofloxacin/ EGG/ unsure about them Member is calling for member with edema for 2 weeks and has pain due to this. Per member, it is pitting and reddish. Member is not on a diuretic, Member is a HD , M/W/F. 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 Member has a fistula right arm. Member does not have any SOB. Education provided on the response time and the member was advised to monitor reported s/s and seek emergency treatment if needed ................... ................... ................... ................... ................... ................... ................... ........ Asphalt Plant Laborer Note From Rafy Sullivan: Dispatched to the call address for the female with edema. Pt states she is a dialysis Pt. She went do dialysis today and they took off a lot of fluid but Pt remains with pitting edema. Pt states her edema has been getting progressively worse over the last two weeks despite not missing any appts. Pt also complains of left leg pain starting in her hip and shooting down to her lower leg. Pt states she did take her blood pressure medication earlier. Pt denies CP or SoB.Pt was found sitting in living room chair, CAOx4, airway open and patent, breathing non labored, able to speak in full sentences, -JVD, -HEENT, lung sounds CTA, +CMSx4, pupils PERRL, abd soft non tender/distended, pupils PERRL, lower extremities with plus 3 pitting edema with tight skin that has a sheen to it, lower extremities also mottled. C consulted. Pt advised she needed to be seen in the ED. Pt asked about going to an UC clinic but was advised they would not have the dialysis she would need and that she should go to the ED. Pt agreed to go and placed call to her sister to bring her. Red flags discussed. ALL times are approx. ................... ................... ................... ................... ................... ................... ................... ........ Disposition: Fulfilled Marbin German MD [address] [facility],[address], [place], [address], MCKAYLA - LUKASZ TERRY 04/03/2024 23:51:42 OBGyn Episode No OBEpisode recorded.
--- OUTSIDE RECORDS SUMMARY | 2024-11-24 16:56 | XMS_ITS | Clinical Summary ---
Author Organization [facility] Address [address] [place] [address] Care Team Providers Care Hay Stacker Operator Name Role Phone Ricky Connell MD Primary Care Provider [phone] [phone] Allergies Active Allergy Reactions Criticality Noted Date Comments Egg Yolk 11/13/2020 Gentamicin 11/13/2020 Influenza Vaccines 11/13/2020 Iodinated Contrast Media 11/13/2020 Levofloxacin 11/13/2020 Vancomycin 11/13/2020 Medications Medication Sig Dispensed Refills Start Date End Date Status fluticasone (FLOVENT HFA) 110 MCG/ACT inhaler Inhale 2 puffs into the lungs 2 (two) times a day. 0 Active albuterol (PROVENTIL HFA;VENTOLIN HFA) 108 (90 Base) MCG/ACT inhaler Inhale 2 puffs into the lungs every 4 (four) hours as needed for wheezing. 0 Active albuterol (PROVENTIL) (2.5 MG/3ML) 0.083% nebulizer solution Take 2.5 mg by nebulization every 4 (four) hours as needed for wheezing. 0 Active montelukast (SINGULAIR) 10 MG tablet Take 10 mg by mouth every night at bedtime. 0 Active B Abfnvdr-Y-Dzmdy Acid (ARIANA-DOTTIE PO) Take by mouth daily. 0 Active mupirocin (BACTROBAN) 2 % ointment Apply topically 2 (two) times a day. 0 Active cloNIDine (CATAPRES) 0.2 MG tablet Take 0.2 mg by mouth 2 (two) times a day. 0 Active doxazosin (CARDURA) tablet 1 mg Take 2 mg by mouth every night at bedtime. 0 Active warfarin (COUMADIN) 4 MG tablet Take 4 mg by mouth daily. 0 Active omeprazole (PriLOSEC) 40 MG capsule Take 40 mg by mouth daily. 0 Active docusate sodium (COLACE) 100 MG capsule Take 100 mg by mouth 2 (two) times a day. 0 Active cetirizine (ZyrTEC) 10 MG tablet Take 10 mg by mouth daily. 0 Active acetaminophen (TYLENOL) 325 MG tablet Take 650 mg by mouth every 4 (four) hours as needed for pain. 0 Active polyvinyl alcohol (Artificial Tears) 1.4 % ophthalmic solution 1 drop 3 (three) times a day. 0 Active ammonium lactate (LAC-HYDRIN) 12 % lotion Apply 1 application topically as needed for dry skin. 0 Active Loratadine 10 MG CAPS Take 1 tablet by mouth daily. 0 Active fluticasone (FLONASE) 50 MCG/ACT nasal spray spray/apply 2 sprays in each nostril daily. 0 Active polyethylene glycol (MIRALAX) 17 g packet Take 17 g by mouth daily. 0 Active Multiple Vitamin (MULTI-VITAMIN DAILY PO) Take by mouth daily. 0 Acti ve diphenhydrAMINE (BENADRYL) 50 MG tablet Take 50 mg by mouth every night at bedtime as needed for itching. 0 Active Cholecalciferol (VITAMIN D) 50 MCG (2000 UT) tablet Take 2,000 Units by mouth daily. 0 Active carvedilol (COREG) 12.5 MG tablet Take 12.5 mg by mouth 2 (two) times a day with meals. 0 Active sevelamer (RENVELA) 800 MG tablet Take 800 mg by mouth 3 (three) times a day with meals. 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 De La Paz, [facility] kidney transplant 01/10/2013 Overview: Overview: Dr De La Paz nephro.transplant 09/25 It was removed in 2013 , pt is on dialysis Hypertension 01/10/2013 Asthma 01/10/2013 Social History Tobacco Use Types Packs/Day Years Used Date Smoking Tobacco: Former Cigarettes Smokeless Tobacco: Never Alcohol Use Standard Drinks/Week Comments No 0 (1 standard drink = 0.6 oz pur e alcohol) Sex and Gender Information Value Date Recorded Sex Assigned at Female 10/24/2020 12:22 PM EST Gender Identity Not on file Sexual Orientation Not on file Last Filed Vital Signs Vital Sign Reading Time Taken Comments Blood Pressure 131/73 11/14/2020 10:08 AM EST Pulse 91 11/14/2020 10:08 AM EST Temperature 36.2 ??C (97.2 ??F) 11/14/2020 10:[address] Respiratory Rate - - Oxygen Saturation 99% 11/14/2020 10:08 AM EST Inhaled Oxygen Concentration - - Weight 28.3 kg (62 lb 6.4 oz) 11/14/2020 10:08 A M EST Height 172.7 cm (5' 8 ) 11/14/2020 10:08 AM EST Body Mass Index 9.49 11/14/2020 10:08 AM EST Plan of Treatment Health Maintenance Due Date Last Done Comments Hepatitis B Vaccines (1 of 3 - 3-dose series) 1973 Hepatitis C Screening 1973 COVID-19 Vaccine (#1) 1973 Pneumococcal Vaccine (1 of 2 - PCV) 1979 Depression Screening 1985 Preventative Health Evaluation 1991 DTap / Tdap / Td (1 - Tdap) 1992 Cervical Cancer Screening (P ap Smear) 1994 Colon Cancer Screening (Colonoscopy) 2018 Breast Cancer Screening (Mammogram) 2023 Shingrix-Zoster Vaccine (1 of 2) 2023 Influenza Vaccine (#1) 2024 RSV Ped < 20 months Aged Out No longe r eligible based on patient's age to complete this topic Care Teams Hay Stacker Operator Relationship Specialty Start Date End Date Ricky Connell MD [address] [place] [address] PCP - General Internal Medicine 11/14/20
--- OUTSIDE RECORDS SUMMARY | 2024-11-24 16:56 | XMS_ITS | Encounter Summary ---
Author Organization [facility] Address [address] [place] [address] Care Team Providers Care Banking Services Officer Name Role Phone Ricky Connell MD Primary Care Provider [phone] [phone] Reason for Visit * Reason Onset Date Comments Faxed Order 11/07/2024 Home Care [facility]NA Encounter Details Date Type Department Care Team (Late st Contact Info) Description 11/07/2024 [facility] [address] [place] [phone] Ricky Connell MD [address] [place] [phone] Faxed Order (Home Care VNA ) Social [...] as of this encounter Progress Notes * Norma Mortensen - 11/07/2024 4:21 PM EST Orders from Home Care [facility]NA placed in Ricky Connell MD bin. Please complete and fax back to [phone]. Thank you. documented in this encounter Plan of Treatment Upcoming Encounters Date Type Department Care Team (Late st Contact Info) Description 10/01/2025 1:00 PM EST Office Visit Pulmonolgy - [place] [address] [facility] [address] [place] [phone] Shameka Amezquita MD [address] [facility] [address] [place] [address] documented as of this encounter Visit Diagnoses Not on filedocumented in this encounter Care Teams Banking Services Officer Relationship Specialty Start Date End Date Ricky Connell MD [address] [place] [address] PCP - General Internal Medicine 07/27/17 documented as of this encounter
--- OUTSIDE RECORDS SUMMARY | 2024-11-24 16:56 | XMS_ITS | Encounter Summary ---
Author Organization [facility] Address [address] [place] [address] Care Team Providers Care Psychology Associate Name Role Phone Ricky Connell MD Primary Care Provider [phone] [phone] Reason for Visit * Reason Onset Date Comments Faxed Order 10/03/2024 Home Care [facility]NA Encounter Details Date Type Department Care Team (Late st Contact Info) Description 10/03/2024 Telephone Internal Medicine - [place] [address] [place] [address] Ricky Connell MD [address] [place] [address] Faxed Order (Home Care VNA ) Social [...] Notes * Raine Blackwell MA - 10/04/2024 8:20 AM EST Signed and faxed. * Norma Mortensen - 10/03/2024 10:21 AM EST Orders from Home Care [facility]NA placed in Ricky Connell MD bin. Please complete and fax back to [phone]. Thank you. documented in this encounter Plan of Treatment Upcoming Encounters Date Type Department Care Team (Late st Contact Info) Description 10/01/2025 1:00 PM EST Office Visit Pulmonolgy - [place] [address] [facility] [address] [facility] [address] [place] [address] Shameka Amezquita MD [address] [facility] [address] [place] [address] documented as of this encounter Visit Diagnoses Not on filedocumented in this encounter Care Teams Psychology Associate Relationship Specialty Start Date End Date Ricky Connell MD [address] [place] [address] PCP - General Internal Medicine 07/27/17 documented as of this encounter
[2024-11-24 16:57] LABS: Prothrombin Time > 320.0 SEC (10.9-12.4)
--- OUTSIDE RECORDS SUMMARY | 2024-11-24 16:57 | XMS_ITS | Patient Health Record ---
Author Organization [facility] Address [address] [place], [place] [phone] Care Team Providers Care Atomic Fuel Assembler Name Role Phone [facility] Primary Care Provider Unavailable [facility] Unavailable [phone] Reason For Referral No Information Plan Of Treatment No Information Insurance Providers Payer Name Payer Address Payer Phone Subscriber Number Group Number Insured Name Patient Relationship to Insured Coverage Start Date Coverage End Date [address] [phone] [facility] [id number] Raine Ravi Self - patient is the insured 9 [place] Medicare Part [place] [employer] [address] [facility] [place] [address] [id number] Kaykay MercergaFarzanaRaine Self - patient is the insured 3
--- OUTSIDE RECORDS SUMMARY | 2024-11-24 16:57 | XMS_ITS ---
Author Organization [facility] Care Team Providers Care Bulldogger Name Role Phone Mohamud Андрей [place] Unavailable Unavailable Allergies and adverse reactions Code CodeSystem Substance Reaction Severity StartDate Concern Status 38939 RXNORM Vancomycin Unknown 08/21/2014 active Levaquin Unknown Unknown active Influenza Vaccines Unknown Unknown activ e 5629 RXNORM Immune Globulin Unknown Unknown active egg-containing compound Unknown Unknown active Contrast Dye Unknown Unknown active Care Team Name Role Address Phone Organization Dates Андрей [place] Attending Physician [address] [place] [address], [address], [place] (Office): : [facility] 08/21/2014 - 08/27/2014 Immunizations Immunization Status Vaccine Details Vaccine Code CodeSystem Date Notes Influenza cancelled Influenza, high-dose, split virus, trivalent, injectable, preservative free 135 CVX created date: 08/23/2014 consent date: 08/23/2014 Pneumovax Dose 1 cancelled pneumococcal polysaccharide vaccine, 23 valent 33 CVX created date: 08/23/2014 consent date: 08/23/2014 Mental Status Section Date Assessment Total Score Description 08/27/2014 BIMS 15 cognitively int act Reason for Referral No Reasons for Referral Entered Social History Social History Observation Description Start Date End Date Code Code System Current Smoking Status Tobacco smoking consumption unknown 057012552 SNOMED CT Sex Assigned At Female 1975 88203-2 [facility] Vital Signs Code Code System Vitals Name Values and Units Timing Information 8462-4 [facility] Blood Pressure-Diastolic Value=88 Un its=mmHg 08/27/2014 8480-6 [facility] Blood Pressure-Systolic Ejuur=075 Un its=mmHg 08/27/2014 8867-4 [facility] Heart rate Value=76.0 Units=/min 09357-6 [facility] Pain Level Value=9.0 08/27/2014 9279-1 [facility] Respiratory Rate Value=18.0 Units=/m in 08/25/2014 8310-5 [facility] Body Temperature Value=98.3 Units=?? F 08/25/2014 40222-9 [facility] O2 % BldC Oximetry Value=93.0 Units= % 08/25/2014 84629-4 [facility] Weight Wcerm=140.7 Units=Lbs 09/2013
--- OUTSIDE RECORDS SUMMARY | 2024-11-24 16:57 | XMS_ITS ---
Author Organization [facility] Address [address] [place], [place] [phone] Care Team Providers Care Church Warden Name Role Phone [facility] Primary Care Provider Unavailable [facility] Unavailable [phone] Gretel Stinson Unavailable [phone] REASON FOR VISIT Call [facility] to enroll Encounters Encounter Location Date Provider Diagnosis [facility] [address] [place] [address] 07/22/2023 Gretel Stinson Plan Of Treatment No Information Progress Notes * Raine RAVIDOB:[birth year] (48 yo F)Acc No.[id number]:07/22/2023 Case Management New Patient:?Raine Ravi Provider:?Gretel Stinson :1975???Age:48 Y???Sex:Female D ate:07/22/2023 Address:[address] [place], [place] [phone] Pcp:[facility] Subjective: * Chief Complaints: * ???1. Call [facility] to enroll. * HPI: ???Social Service:?Action Taken?SSA/Medicare? Called Medicare with client and enrolled with CCa. [facility] will be active on the Aug 13 2023. 07/22/23 gd2.? Objective: Assessment: Plan: * Treatment: * Images: Billing Information: * Visit Code:? * Procedure Codes:? Care Plan Details* * Sign off status: Completed true * Provider:Francois Stinson Date:?07/22/2023 Generated for Rachel nunez/Leda/Meagansmitting on:?11/24/2024 04:56 PM EDT History and Physical Notes * HPI (History of Present Illness) Category Sub-Category Detail Notes Social Service Action Taken [facility]/Medicare: Called Medic are with client and enrolled with CCa. CCa will be active on the Aug 13 2023. 07/22/23 gd2
--- OUTSIDE RECORDS SUMMARY | 2024-11-24 16:57 | XMS_ITS | Encounter Summary ---
Author Organization [facility] Address [address] [place] [address] Care Team Providers Care Pets Salesperson Name Role Phone Ricky Connell MD Primary Care Provider [phone] [phone] Encounter Details Date Type Department Care Team (Latest Contact Info) Description 11/02/2024 Anticoagulation - Warfarin Visit [facility] Clinic - [place] [address] [place] [phone] Zenia Lorenz LPN Deep vein thrombosis (DVT) of both [...] 1:00 PM EST Office Visit Pulmonolgy - [place] [address] [facility] [address] [place] [phone] Shameka Amezquita MD [address] [facility] [address] [place] [address] documented as of this encounter Procedures Procedure Name Priority Date/Time Associated Diagnosis Comments PROTHROMBIN TIME WITH INR Routine 10/27/2024 documented in this encounter Results * Prothrombin time with INR (10/27/2024) INR 2.5 Prothrombin Time POC Blood Venous blood specimen / Unknown 10/27/2024 us Chester Moyer MD LAB BLOOD ORDERABLES Final Res ult documented in this encounter Visit Diagnoses Diagnosis Deep vein thrombosis (DVT) of both upper extremities, unspecified chronicity, unspecified vein (CMS/HCC)- Primary documented in this encounter Care Teams Pets Salesperson Relationship Specialty Start Date End Date Ricky Connell MD [address] [place] [address] PCP - General Internal Medicine 07/27/17 documented as of this encounter
--- OUTSIDE RECORDS SUMMARY | 2024-11-24 16:57 | XMS_ITS | Encounter Summary ---
Author Organization [facility] Address [address] [place] [address] Care Team Providers Care Axle Inspector Name Role Phone Ricky Connell MD Primary Care Provider [phone] [phone] Reason for Visit * Reason Onset Date Comments provider call back 11/09/2024 Encounter Details Date Type Department Care Team (Late st Contact Info) Description 11/09/2024 [facility] [address] [place] [phone] Ricky Connell MD [address] [place] [address] provider call back Social History Tobacco Use Types Packs/Day Years [...] as of this encounter Progress Notes * Marissa Kevin MA - 11/22/2024 11:36 AM EDT KENN received, letter faxed as requested. * Marissa Kevin MA - 11/22/2024 10:32 AM EDT Called and spoke with Christianne, she is sending over an KENN so we can fax over letter. I did let her know that letter was also mailed to patient. * Conor Kumari - 11/22/2024 10:14 AM EDT day care aide is calling back asking to speak with nurse or provider, is asking for a call back to [phone]. They did not receive the letter and state it is an emergency * Sandie Pena MA - 11/10/2024 9:28 AM EST ANDRZEJ Morton . Noted. Letter printed placed in your in basket . Please review and sign . Thanks . FRANCIA RODRIGUEZ * Selene Mcallister NP - 11/10/2024 8:59 AM EST Agree and noted. Please provide, thank you. * Meredith Hood MA - 11/09/2024 1:50 PM EST Called Christianne back, she's from a nonprofit organization considering the patient's housing, they arefighting to get the patient a two bedroom unit and they want to find a medical reason can be used. Last seen 10/26/24 by Selene, letter pended. They want the letter faxed to [phone]. * Conor Kumari - 11/09/2024 1:32 PM EST Caller requesting call back from provider: Is the caller the patient? no If caller is not the patient, what is the callers name? Christianne Callers relationship to patient? Community corporate legal assistant [place] Reason for call back: asking to speak with PCP directly, they are working with patient for a reasonable accomodation request. Caller offered to speak with the nurse for assistance: YES Response: Patient offered to speak with nurse for assistance and patient agreed. Message forwarded to nurse. documented in this encounter Plan of Treatment Upcoming Encounters Date Type Department Care Team (Late st Contact Info) Description 10/01/2025 1:00 PM EST Office Visit Pulmonolgy - [place] [address] [place] [address] Shameka Amezquita MD [address] [place] [address] documented as of this encounter Visit Diagnoses Not on filedocumented in this encounter Care Teams Axle Inspector Relationship Specialty Start Date End Date Ricky Connlel MD [address] [place] [address] PCP - General Internal Medicine 07/27/17 documented as of this encounter
--- OUTSIDE RECORDS SUMMARY | 2024-11-24 16:57 | XMS_ITS | Encounter Summary ---
Author Organization [facility] Address [address] [place] [address] Care Team Providers Care Shovel Mechanic Name Role Phone Ricky Connell MD Primary Care Provider [phone] Reason for Visit * Reason Onset Date Comments Faxed Order 10/03/2024 Home [facility] Encounter Details Date Type Department Care Team (Late st Contact Info) Description 10/03/2024 Telephone Internal Medicine - [facility] [address] [place] [address] Ricky Connell MD [address] [place] [phone] Faxed Order (Home Care [facility]) Social History Tobacco Use Types Packs/Day Years [...] Notes * Raine Blackwell MA - 10/04/2024 8:16 AM EST Signed and faxed. * Norma Mortensen - 10/03/2024 10:22 AM EST Orders from [facility] placed in Ricky Connell MD bin. Please complete and fax back to [phone]. Thank you. documented in this encounter Plan of Treatment Upcoming Encounters Date Type Department Care Team (Late st Contact Info) Description 10/01/2025 1:00 PM EST Office Visit Pulmonolgy - [place] [address] [place] [address] Shameka Amezquita MD [address] [facility] [place] [address] documented as of this encounter Visit Diagnoses Not on filedocumented in this encounter Care Teams Shovel Mechanic Relationship Specialty Start Date End Date Ricky Connell MD [address] [place] [phone] PCP - General Internal Medicine 07/27/17 documented as of this encounter
--- OUTSIDE RECORDS SUMMARY | 2024-11-24 16:57 | XMS_ITS | Encounter Summary ---
Author Organization [facility] Address [address] [place] [address] Care Team Providers Care Director Surgical Name Role Phone Ricky Connell MD Primary Care Provider [phone] Reason for Visit * Reason Onset Date Comments faxed order 10/03/2024 Home [facility] Encounter Details Date Type Department Care Team (Late st Contact Info) Description 10/03/2024 Telephone Internal Medicine - [facility] [address] [place] [address] Ricky Connell MD [address] [place] [phone] faxed order (Home [facility] ) Social History Tobacco [...] Notes * Raine Blackwell MA - 10/04/2024 8:15 AM EST Signed and faxed. * Mary Grace Wilburn - 10/03/2024 2:26 PM EST faxed order from [facility] Placed in nurse's bin Please fax [phone] documented in this encounter Plan of Treatment Upcoming Encounters Date Type Department Care Team (Late st Contact Info) Description 10/01/2025 1:00 PM EST Office Visit Pulmonolgy - [place] [address] [place] [address] Shameka Amezquita MD [address] [place] [address] documented as of this encounter Visit Diagnoses Not on filedocumented in this encounter Care Teams Director Surgical Relationship Specialty Start Date End Date Ricky Connell MD [address] [place] [phone] PCP - General Internal Medicine 07/27/17 documented as of this encounter
--- OUTSIDE RECORDS SUMMARY | 2024-11-24 16:57 | XMS_ITS | Clinical Summary ---
Author Organization [facility] Address [address] [place] [address] Care Team Providers Care Cupola Operator Insulation Name Role Phone Unavailable Primary Care Provider Unavailabl e Source Comments PLEASE NOTE, if this patient is a minor, it may be UNLAWFUL to discuss sensitive information that is contained in these records (such as FAMILY PLANNING, MENTAL HEALTH or SUBSTANCE ABUSE) with the minor patient's parent or other person without the patient's specific authorization.[facility] Allergies Active Allergy Reactions Criticality Noted Date Comments Egg Yolk Rash High 05/21/2016 Gentamicin 05/21/2016 Influenza Vac Tvs 2009- (Pf) 05/21 Iodinated Contrast Media 05/21/2016 Levofloxacin Anaphylaxis 05/21/2016 Vancomycin 05/21/2016 Medications MINERIN cream APPLY TOPICALLY TO ARMS, legs, BACK, AND abdomen IN THE MORNING AND IN THE EVENING FOR dryness 5 04/24/20 16 Active tretinoin (RETIN-A) 0.025 % cream APPLY TO ACNE ON FACE AND chin EVERY few NIGHTS THEN EVERY other NIGHT working UP TO nightly 3 04/24/20 16 Active ketoconazole (NIZORAL) 2 % shampoo APPLY TO damp HAIR, LEAVE ON FOR 5 minutes, THEN RINSE OUT. USE when SHAMPOOING. 0 04/13/20 16 Active clindamycin (CLEOCIN T) 1 % lotion APPLY TO ACNE ON FACE AND chin IN THE MORNING 5 04/24/20 16 Active cycloSPORINE (RESTASIS) 0.05 % ophthalmic emulsion 1 Drop every 12 (twelve) hours. Invert vial several times before opening. Active ARTIFICIAL TEARS,[id number] O, ophthalmic solution INSTILL ONE DROP IN EACH EYE THREE TIMES DAILY 10 06/23/20 16 Active Clindamycin-Benzo yl Peroxide 1.2 %(1 % base) -5 % gel APPLY TOPICALLY TO OUTBREAKS ON BUTTOCKS IN THE MORNING AND IN THE EVENING 4 06/27/20 16 Active capsaicin (ZOSTRIX) 0.075 % creamIndications: Acute pain of left shoulder Apply topically 3 (three) times daily 60 g 0 09/11/20 16 Active glovesIndications :End stage renal failure on dialysis ([facility]) Please use one pair of gloves as needed for dressing change. N18.6 size XL 100 Each 5 12/31/19 17 Active loratadine (CLARITIN) 10 mg tabletIndications :Environmental allergies Take 1 Tab by mouth once daily as needed for allergies 30 Tab 10 01/02/20 17 Active albuterol (ACCUNEB) 0.63 mg/3 mL nebulizer solution Take 3 mL by nebulization every 6 (six) hours as needed for wheezing 28 Vial 5 01/21/20 17 Active SENSIPAR 30 mg tabletIndications :Dialysis patient ([facility]),End stage renal failure on dialysis ([facility]),HTN, goal below 140/90 Take 1 Tab by mouth once daily 30 Tab 10 01/30/20 17 Active doxazosin (CARDURA) 1 mg tabletIndications :Dialysis patient ([facility]),End stage renal failure on dialysis ([facility]),HTN, goal below 140/90 Take 2 Tabs by mouth nightly at bedtime 60 Tab 5 01/30/20 17 Active cloNIDine HCl (CATAPRES) 0.2 mg tabletIndications :Dialysis patient ([facility]),End stage renal failure on dialysis ([facility]),HTN, goal below 140/90 TAKE ONE TABLET BY MOUTH TWICE DAILY ON non-hemodialysis DAYS, AND TAKE ONE TABLET AT BEDTIME ON hemodialysis DAYS. 60 Tab 5 01/30/20 17 Active carvedilol (COREG) 12.5 mg tabletIndications :Dialysis patient ([facility]),End stage renal failure on dialysis ([facility]),HTN, goal below 140/90 Take 1 Tab by mouth 2 (two) times daily 60 Tab 7 01/30/20 17 Active FOSRENOL 1,000 mg chewable tabletIndications :Dialysis patient ([facility]),End stage renal failure on dialysis ([facility]),HTN, goal below 140/90 Chew tablets completely before swallowing. Do not swallow intact tablets. 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 8 Each 5 01/30/20 17 Active diphenhydrAMINE (BENADRYL) 50 mg capsuleIndication s:URI, acute Take 1 Cap by mouth nightly at bedtime as needed for itching or sleep 45 Cap 1 02/13/20 17 Active mupirocin (BACTROBAN) 2 % ointmentIndicatio ns:Boil of buttock APPLY TO THE AFFECTED AREA TOPICALLY THREE(3) TIMES A DAY 22 g 2 04/14/20 17 Active warfarin (COUMADIN) 4 mg tabletIndications :Chronic anticoagulation,E nd stage renal failure on dialysis (HCC-CMS) Take 1 Tab by mouth once daily 30 Tab 5 05/28/20 17 Active nebulizer accessoriesIndica tions:Moderate persistent asthma without complication J45.09 1 Device 06/04/20 17 Active omeprazole (PRILOSEC) [address] capsuleIndication s:Gastroesophagea l reflux disease without esophagitis TAKE ONE CAPSULE BY MOUTH EVERY MORNING BEFORE BREAKFAST 30 Cap 3 06/17/20 17 Active nebulizer accessoriesIndica tions:Asthma, allergic, unspecified asthma severity, uncomplicated J45.09 - Allergic asthma. Nebulizer accessory kit including mask and tubing. 1 Device 2 06/24/20 17 Active nebulizer and compressorIndicat ions:Asthma, allergic, unspecified asthma severity, uncomplicated J45.909 - Allergic asthma 1 Each 06/24/20 17 Active MAPAP 325 mg tablet TAKE 2 TABLETS (650mg) BY MOUTH EVERY 4 HOURS NEEDED FOR MILD PAIN 30 Tab 3 06/25/20 17 Active benzonatate (TESSALON) 200 mg capsule Take 1 Cap by mouth 3 (three) times daily as needed for cough Swallow whole. 60 Cap 5 07/07/20 17 Active azithromycin (ZITHROMAX) 250 mg tabletIndications :Bronchitis Take two tabs by mouth today followed by one tab by mouth for 4 more days. 6 Tab 07/07/20 17 Active warfarin (COUMADIN) 5 mg tablet TAKE ONE TABLET BY MOUTH DAILY DIRECTED 30 Tab 3 07/22/20 17 Active fluticasone (FLONASE) 50 mcg/actuation nasal spray SPRAY ONCE INTO EACH NOSTRIL DAILY 16 g 2 08/25/20 17 Active PROAIR HFA 90 mcg/actuation inhaler INHALE TWO PUFFS BY MOUTH EVERY 6 HOURS NEEDED FOR WHEEZING 8.5 g 3 08/30/20 17 Active DOK 100 mg capsule TAKE ONE CAPSULE BY MOUTH two(2) TIMES A DAY NEEDED FOR CONSTIPATION 60 Cap 3 09/20/19 18 Active sevelamer carbonate (RENVELA) 800 mg tabletIndications :Dialysis patient ([facility]),End stage renal failure on dialysis ([facility]),HTN, goal below 140/90 TAKE 3.5 TABLETS BY MOUTH 3 (THREE) TIMES A DAY WITH MEALS 315 Tab 5 02/29/20 18 Active FLOVENT HFA 110 mcg/actuation inhaler INHALE two PUFFS BY MOUTH INTO THE 2 (two) times a day. GARGLE MOUTH AFTER USE 12 g 2 08/01/20 18 Active Active Problems Problem Noted Date Diagnosed Date Routine adult health maintenance 07/07/2017 Moderate persistent asthma 06/04/2017 History of mammogram 11/13/2016 Overview (11/13/2016): 10/19/2016: no mammographic evidence of malignancy. Weakness 06/09/2016 Overview (06/09/2016): CXR 06/09/16 at [facility] shows no consolidation, minimal atelectatic changes in L lung base Chronic anticoagulation 06/04/2016 Dialysis patient ([facility]) End stage renal failure on dialysis Overview (02/12/2017): Dr. De La Paz, [facility] Acquired blindness of both eyes Anemia Hypertension Libia's disease Family History Medical History Relation Name Comments Hypertension Father Thyroid Disease Mother Relation Name Status Comments Father Mother Alive Sister 1 Alive Sister 2 Alive Social History Tobacco Use Types Packs/Day Years Used Date Smoking Tobacco: Former Smokeless Tobacco: Never Alcohol Use Standard Drinks/Week Comments No 0 (1 standard drink = 0.6 oz pur e alcohol) Social Connections Answer Date Recorded Social Connections and Isolation 0 05/04/2019 Financial Resource Strain Answer Date R ecorded Financial Resource Strain 0 2018 Stress Answer Date Recorded Stress 0 05/04/2019 Physical Activity Answer Date Recorded Physical Activity 0 05/04/2019 Food Insecurity Answer Date Recorded Food 0 05/04/2019 Transportation Needs Answer Date Record ed Transportation 0 05/04/2019 Housing Stability Answer Date Recorded Housing 0 05/04/2019 Safety and Environment Answer Date Otilio rded Safety 0 05/04/2019 Utilities Answer Date Recorded Utilities 0 05/04/2019 Employment Answer Date Recorded Employment 0 05/04/2019 Comments No Sex and Gender Information Value Date Recorded Sex Assigned at Male 06/04/2017 11:11 AM PDT Legal Sex Female 11:57 AM PDT Gender Identity Male 06/04/2017 11:11 AM PDT Sexual Orientation Straight 06/04/2017 11 :11 AM PDT Occupation Industry Job Start Date Job End Date disabled Not on file Not on file Not on file Last Filed Vital Signs Vital Sign Reading Time Taken Comments Blood Pressure 162/84 07/07/2017 10:23 AM EDT Pulse 76 06/02/2017 10:27 AM EDT Temperature 36.4 ??C (97.6 ??F) 07/07/2017 10:23 AM E DT Respiratory Rate 16 06/02/2017 10:27 AM EDT Oxygen Saturation 100% 01/14/2017 3:34 PM EDT Inhaled Oxygen Concentration - - Weight 107 kg (236 lb) 06/02/2017 10:27 AM EDT Height 165.1 cm (5' 5 ) 06/02/2017 10:27 AM EDT Body Mass Index 39.27 06/02/2017 10:27 AM EDT Plan of Treatment Not on file [place]
--- OUTSIDE RECORDS SUMMARY | 2024-11-24 16:57 | XMS_ITS | Encounter Summary ---
Author Organization [facility] Address [address] [place] [address] Care Team Providers Care Hide Buffer Name Role Phone Ricky Connell MD Primary Care Provider [phone] Reason for Visit * Reason Onset Date Comments Med Refill 10/30/2024 Encounter Details Date Type Department Care Team (Late st Contact Info) Description 10/30/2024 [facility] [address] [place] [phone] Ricky Connell MD [address] [place] [id number] Med Refill Social History Tobacco Use Types Packs/Day Years [...] as of this encounter Progress Notes * Miriam Peña LPN - 11/01/2024 8:33 AM EST 3rd attempt Left message on voicemail. Please re-message to Triage. * Miriam Peña LPN - 10/31/2024 8:56 AM EST 2nd attempt Left message on voicemail. Please re-message to Triage. * Breonna Foster RN - 10/30/2024 1:33 PM EST Attempted to reached patient obtained VM Left message for pt to call back. Please transfer call to triage nurse or re-message to [facility] Triage. * Marissa Bustamante MA - 10/30/2024 1:03 PM EST Please triage request for antibiotic * Eryn Poon - 10/30/2024 12:59 PM EST Jai 10/26/24 Doxycycline Monohydrate (MONODOX) 100 MG capsule The original prescription was discontinued on 07/19/2023 by Jeannette Whitmore NP for the following reason: Patient Not Tolerating Side Effects. Renewing this prescription may not be appropriate. Sig: TAKE 1 CAPSULE BY MOUTH two (2) times a day FOR 10 DAYS; THEN TAKE 1 CAPSULE BY MOUTH ONCE DAILY Disp: 90 documented in this encounter Plan of Treatment Upcoming Encounters Date Type Department Care Team (Late st Contact Info) Description 10/01/2025 1:00 PM EST Office Visit Pulmonol - [place] [address] [phone] Shameka Amezquita MD [address] [facility] [address] [place] [address] documented as of this encounter Visit Diagnoses Not on filedocumented in this encounter Care Teams Hide Buffer Relationship Specialty Start Date End Date Ricky Connell MD [address] [place] [phone] PCP - General Internal Medicine 07/27/17 documented as of this encounter
--- OUTSIDE RECORDS SUMMARY | 2024-11-24 16:57 | XMS_ITS | Encounter Summary ---
Author Organization [facility] Address [address] [place] [address] Care Team Providers Care Rattlesnake Farmer Name Role Phone Ricky Connell MD Primary Care Provider [phone] Encounter Details Date Type Department Care Team (Latest Contact Info) Description 11/13/2024 Anticoagulation - Warfarin Visit [facility] [address] [place] [phone] Zenia Lorenz LPN Deep vein thrombosis (DVT) [...] 1:00 PM EST Office Visit Pulmonolgy - [place] [address] [facility] [address] [place] [phone] Shameka Amezquita MD [address] [facility] [address] [place] [address] documented as of this encounter Procedures Procedure Name Priority Date/Time Associated Diagnosis Comments PROTHROMBIN TIME WITH INR Routine 11/10/2024 documented in this encounter Results * Prothrombin time with INR (11/10/2024) INR 2.3 Prothrombin Time POC Blood Venous blood specimen / Unknown 11/10/2024 Ricky Connell MD LAB BLOOD ORDERABLES Afua l Result documented in this encounter Visit Diagnoses Diagnosis Deep vein thrombosis (DVT) of both upper extremities, unspecified chronicity, unspecified vein (CMS/HCC)- Primary documented in this encounter Care Teams Rattlesnake Farmer Relationship Specialty Start Date End Date Ricky Connell MD [address] [place] [phone] PCP - General Internal Medicine 07/27/17 documented as of this encounter
--- OUTSIDE RECORDS SUMMARY | 2024-11-24 16:57 | XMS_ITS | Clinical Summary ---
Author Organization [place] [address] [facility] Address [address] [facility] [place] [address] Phone Care Team Providers Care Garment Parts Cutter Hand Name Role Phone Rikcy Connell MD Primary Care Provider [phone] Allergies Active Allergy Reactions Criticality Noted Date Comments Egg Yolk Rash High 05/21/2016 Gentamicin 05/21/2016 Influenza Vac Tvs 2009-11 (Pf) 01/10/2013 Vac Tvs 2009- (pf) Iodinated Contrast Media 01/10/2013 IVP DYE (IV CONTRAST DYE) IV and oral. Levofloxacin Anaphylaxis High 01/10/2013 LEVAQUIN (LEVOFLOXACIN HEMIHYDR* Other 11/13/2020 DIAGNOSTIC X-RAY MATERIALS Vancomycin 05/21/2016 Medications B complex-vitamin C-folic acid (Nephro Vitamins) 0.8 mg tablet Take 1 Tablet by mouth daily. 024 Active chlorhexidine (HIBICLENS) 4 % external liquid Uses a body wash from the neck down twice a week to affected areas only if needed 022 Active cholecalciferol (VITAMIN D-3) 50 mcg (2,000 unit) capsule Take 2,000 Units by mouth daily. Active docusate sodium (COLACE) 100 mg capsule TAKE 1 CAPSULE BY MOUTH two (2) times a day NEEDED FOR CONSTIPATION 024 Active doxazosin (CARDURA) 1 mg tablet Take 2 Tablets by mouth at bedtime. TAKE 2 TABLETS BY MOUTH AT BEDTIME 024 Active epoetin ford-epbx (Retacrit) 20,000 unit/mL injection Inject as directed once a week. 023 Active glycerin (pediatric) suppository Place 1 g rectally Once. Active levothyroxine (SYNTHROID, LEVOTHROID) 75 mcg tablet TAKE 1 TABLET BY MOUTH ONCE DAILY Active menthol-zinc oxide (Calmoseptine) 0.44-20.6 % ointment Apply 1 Each topically 4 times daily. Active metroNIDAZOLE (METROGEL) 0.75 % (37.5mg/5 gram) vaginal gel Insert vaginally at bedtime x 5 nights Active mv-min/iron/foli c/calcium/vitK (WOMEN'S MULTIVITAMIN ORAL) Multiple Vitamins-Minera ls (MULTIVITAMIN WOMEN) Tab Take by mouth. Active polyethylene glycol (PEG) 17 gram/dose oral powder Take 17 g by mouth daily. Active polyvinyl alcohol (ARTIFICIAL TEARS) 1.4 % ophthalmic solution Place 1 Drop into both eyes 3 times daily as needed for Other (dry eyes). 023 Active nebulizer accessories [facility] J45.09 - Allergic asthma. Nebulizer accessory kit including mask and tubing. 017 Active sevelamer carbonate (RENVELA) 800 mg tablet Take 800 mg by mouth 3 times daily (with meals). 015 Active lanolin houidgf-yx-o.pet -ceres (Minerin Creme) cream 1 Units by Does not apply route 2 times daily. APPLY cream TO ARMS, BACK, ON LEGS, abdomen IN THE MORNING AND IN THE EVENING FOR DRYNESS Active sodium zirconium cyclosilicate (Lokelma) 10 gram packet Take 10 g by mouth See Admin Instructions. Non-dialysis days (//SatSun) until discontinued by nephrology 023 Active omeprazole (PriLOSEC) [address] capsule Take 1 capsule (40 mg total) by mouth 1 (one) time each day. Do not crush or chew. 30 capsule 1 025 Active ammonium lactate (AMLACTIN) 12 % cream APPLY TO THE AFFECTED AREA TOPICALLY two (2) times a day 385 g 025 Active mupirocin (BACTROBAN) 2 % ointment APPLY TOPICALLY TO THE AFFECTED AREA two (2) times a day 22 g 025 Active carvediloL (COREG) 12.5 mg tabletIndication s:Essential (primary) hypertension TAKE 1 TABLET BY MOUTH two (2) times a day WITH MEALS 180 tablet 025 Active albuterol HFA (PROAIR HFA ; PROVENTIL HFA ; VENTOLIN HFA) 90 mcg/actuation inhalerIndicatio ns:Mild persistent asthma without complication INHALE 2 PUFFS BY MOUTH INTO THE lungs EVERY 6 HOURS NEEDED FOR WHEEZING 8.5 g 025 Active Banophen 50 mg capsule TAKE 1 CAPSULE BY MOUTH EVERY 6 HOURS NEEDED FOR ITCH 50 capsule 025 Active cloNIDine (CATAPRES) 0.2 mg tabletIndication s:Essential (primary) hypertension TAKE 1 TABLET BY MOUTH IN THE MORNING AND TAKE 1 TABLET BY MOUTH IN THE EVENING 60 tablet 025 Active acetaminophen (TYLENOL) 325 mg tablet Take 2 tablets (650 mg total) by mouth every 6 (six) hours if needed for mild pain. 30 tablet 025 Active loratadine (CLARITIN) 10 mg tabletIndication s:Allergy, unspecified, sequela TAKE 1 TABLET BY MOUTH TWICE A WEEK 10 tablet 025 Active warfarin (COUMADIN) 3 mg tablet TAKE 1 TABLET BY MOUTH ONCE DAILY 90 tablet 025 Active montelukast (SINGULAIR) 10 mg tablet TAKE 1 TABLET BY MOUTH ONCE DAILY AT BEDTIME 90 tablet 025 Active fluticasone HFA (FLOVENT HFA) 110 mcg/actuation inhalerIndicatio ns:Other specified chronic obstructive pulmonary disease (CMS/HCC) INHALE 2 PUFFS INTO THE lungs two (2) times a day 12 g 1 025 Active fluticasone propionate (FLONASE) 50 mcg/actuation nasal sprayIndications :Allergic rhinitis, unspecified SPRAY 2 PUFFS IN EACH NOSTRIL ONCE DAILY 48 g 1 025 Active albuterol 2.5 mg /3 mL (0.083 %) nebulizer solutionIndicati ons:Other specified chronic obstructive pulmonary disease (CMS/HCC) INHALE THE CONTENT OF 1 VIAL (3mls) VIA NEBULIZER EVERY 4 TO 6 HOURS NEEDED FOR WHEEZING 360 mL 1 Active albuterol 2.5 mg /3 mL (0.083 %) nebulizer solution INHALE THE CONTENT OF 1 VIAL (3mls) VIA NEBULIZER EVERY 4 TO 6 HOURS NEEDED FOR WHEEZING Active fluticasone HFA (FLOVENT HFA) 110 mcg/actuation inhaler INHALE TWO PUFFS BY MOUTH INTO THE LUNGS two (2) times a day Active fluticasone propionate (FLONASE) 50 mcg/actuation nasal spray SPRAY 2 PUFFS IN EACH NOSTRIL ONCE DAILY 2024 Discontinued warfarin (COUMADIN) 3 mg tablet TAKE 1 TABLET BY MOUTH ONCE DAILY 90 tablet 024 2024 Discontinued montelukast (SINGULAIR) 10 mg tablet Take 1 tablet (10 mg total) by mouth at bedtime. 90 tablet 2024 Discontinued cloNIDine (CATAPRES) 0.2 mg tabletIndication s:Essential (primary) hypertension TAKE 1 TABLET BY MOUTH IN THE MORNING AND TAKE 1 TABLET BY MOUTH IN THE EVENING 60 tablet 025 2024 Discontinued loratadine (CLARITIN) 10 mg tabletIndication s:Allergy, unspecified, sequela TAKE 1 TABLET BY MOUTH TWICE A WEEK 10 tablet 025 2024 Discontinued Banophen 50 mg capsule TAKE 1 CAPSULE BY MOUTH EVERY 6 HOURS NEEDED FOR ITCH 50 capsule 025 2024 Discontinued acetaminophen (TYLENOL) 325 mg tablet Take 2 tablets (650 mg total) by mouth every 6 (six) hours if needed for mild pain. 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 Overview (08/02/2024): Dr altman did mri and pt saw dr ybarra Allergic rhinitis 01/10/2013 Asthma 01/10/2013 Blindness 01/10/2013 Overview (08/02/2024): [facility] previous pcp Neuro dr ybarra Hypertension 01/10/2013 S/P kidney transplant 01/10/2013 Overview (08/02/2024): Dr DeL a Paz nephro.transplant 09/25 It was removed in 2013 , pt is on dialysis Encounters Date Type Department Care Team Description 11/13/2024 Telephone Internal Medicine [facility] [place] [address] [facility] [place] [place] [phone] Ricky Connell MD Foot Swelling 11/13/2024 Anticoagulation - Warfarin Visit [facility] [place] [address] [facility] [place] [place] [phone] Zenia Lorenz LPN Deep vein thrombosis (DVT) of both upper extremities, unspecified chronicity, unspecified vein (CMS/HCC) (Primary Dx) 11/10/2024 Telephone Internal Medicine - [address] [phone] Ricky Connell MD 11/09/2024 Telephone Internal Medicine - [address] [phone] Ricky Connell MD provider call back 11/07/2024 [facility] [address] [phone] Ricky Connell MD Faxed Order ([facility] ) 11/03/2024 Anticoagulation - Warfarin Visit Coumadin [address] [phone] Dahiana Song LPN Deep vein thrombosis (DVT) of both upper extremities, unspecified chronicity, unspecified vein (CMS/HCC) (Primary Dx) 11/02/2024 Anticoagulation - Warfarin Visit Coumadin [address] [phone] Zenia Lorenz LPN Deep vein thrombosis (DVT) of both upper extremities, unspecified chronicity, unspecified vein (CMS/HCC) (Primary Dx) 10/30/2024 Telephone Internal Medicine [address] [phone] Ricky Connell MD Med Refill 10/26/2024 2:30 PM EST Office Visit Internal Medicine [address] [phone] Selene Schwab, ANDRZEJ Redness and swelling of lower leg (Primary Dx); Cellulitis of right lower extremity; Wound of right lower extremity, initial encounter 10/20/2024 Anticoagulation - Warfarin Visit Coumadin [facility] [address] [place] [address] Zenia Lorenz LPN Deep vein thrombosis (DVT) of both upper extremities, unspecified chronicity, unspecified vein (CMS/HCC) (Primary Dx) 10/18/2024 Anticoagulation - Warfarin Visit Coumadin Clinic - [address] [phone] Zenia Lorenz LPN Deep vein thrombosis (DVT) of both upper extremities, unspecified chronicity, unspecified vein (CMS/HCC) (Primary Dx) 10/04/2024 Billing Patient Not Present Internal Medicine - [address] [phone] Ricky Connell MD Major depressive disorder, recurrent, severe with psychotic features (CMS/HCC) (Primary Dx); End stage renal disease (CMS/HCC); Atrial fibrillation, unspecified type (CMS/HCC); Essential (primary) hypertension; Diabetes mellitus with hyperosmolarity without hyperglycemic hyperosmolar nonketotic coma (CMS/HCC); Other obesity due to excess calories 10/03/2024 Telephone Internal Medicine - [address] [phone] Ricky Connell MD faxed order ([facility] ) 10/03/2024 Telephone Internal Medicine - [address] [phone] Ricky Connell MD Faxed Order ([facility]) 10/03/2024 Telephone Internal Medicine - [address] [phone] Ricky Connell MD Faxed Order ([facility] ) 10/03/2024 Telephone Internal Medicine - [address] [phone] Ricky Connell MD Faxed Order ([facility] ) 09/29/2024 10:45 AM EST Office Visit Pulmonolgy [facility] 175 [facility] [address] [place] [phone] Shameka Amezquita MD Mild persistent asthma, unspecified whether complicated (Primary Dx) 09/20/2024 Anticoagulation - Warfarin Visit [facility]in Clinic [address] [phone] Zenia Lorenz LPN Deep vein thrombosis (DVT) of both upper extremities, unspecified chronicity, unspecified vein (CMS/HCC) (Primary Dx) 09/19/2024 Telephone Internal Medicine - [address] [phone] Ricky Connell MD provider call back 09/12/2024 Anticoagulation - Warfarin Visit Coumadin [facility] [address] [place] [phone] Zenia Lorenz LPN Deep vein thrombosis (DVT) of both upper extremities, unspecified chronicity, unspecified vein (CMS/HCC) (Primary Dx) 09/08/2024 Telephone [facility] [address] [place] [phone] Luis Alfredo Paulino [place] 08/29/2024 Anticoagulation - Warfarin Visit Coumadin [facility] [address] [place] [phone] Zenia Lorenz LPN Deep vein thrombosis (DVT) of both upper extremities, unspecified chronicity, unspecified vein (CMS/HCC) (Primary Dx) 08/29/2024 Billing Patient Not Present [facility] - [address] [phone] Ricky Connell MD End stage renal disease (CMS/HCC) (Primary Dx); Essential (primary) hypertension; Atrial fibrillation, unspecified type (CMS/HCC); Type 2 diabetes mellitus with hyperosmolarity without nonketotic hyperglycemic-hyperosm olar coma ([facility]) (CMS/HCC); Other obesity due to excess calories; Major depressive disorder, recurrent, severe with psychotic features (CMS/HCC) from Last 3 Months Surgical History Surgery Date Site/Laterality Comments OTHER SURGICAL HISTORY PROCEDURE: [place] ANES XTRPRTL LWR ABD W/URIN TRACT RENAL TRANSPL Medical History Medical History Date Comments HTN (hypertension) DX:HTN (hyper tension) Arthritis DX:Arthritis Asthma DX:Asthma DVT (deep venous thrombosis) ([facility]) 07/16/2017 DX:DVT (deep venous thrombos is) ([facility]); COMMENT: Upper extremity, with bilateral vascular stents in the axilla On Coumadin ESRD (end stage renal diseas e) on dialysis ([facility]) 04/19/2015 DX:ESRD (end stage renal dis ease) on dialysis ([facility]) S/P kidney transplant 01/10/2013 DX:S/P kid da transplant; COMMENT: Dr De La Paz nephlukasz.transplant 09/25 , then removed in 2013 Progressive multifocal leukoencephalopathy ([facility]) 02/22/2013 DX:Progressive multifoca l leukoencephalopathy ([facility]); COMMENT: Dr altman did mri and pt saw dr ybarra Papanicolaou smear of cervix with atypical squamous cells of undetermined significance (ASC-US) 11/04/2017 DX:Papanicolaou sme ar of cervix with atypical squamous cells of undetermined significance (ASC-US); COMMENT: History: PAP 08/12/2017: ASCUS; High Risk HPV DNA negative 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 DX:Libia 's disease Dialysis patient ([facility]) 11/13/2013 DX:Di alysis patient ([facility]); COMMENT: Dr Vail On coumadin for fistula thrombosis Blindness 01/10/2013 DX:Blindness; CO MMENT: [facility] previous pcp Neuro dr ybarra Allergic rhinitis 01/10/2013 DX:Allergic rh initis A-V fistula ([facility]) 03/21/2019 DX:A-V fis darcy ([facility]) Anemia 03/21/2019 DX:Anemia Family History Medical History Relation Name Comments Other: HTN Father Thyroid disease Mother Blindness Neg Hx Breast cancer Neg Hx Cataracts Neg Hx Glaucoma Neg Hx Macular degeneration Neg Hx Ovarian cancer Neg Hx Strabismus Neg Hx Relation Name Status Comments Brother Alive 4,allergies/ast hma Father pt was foster c hild.does not know Mother Alive Sister Alive 2,healthy Social History Tobacco Use Types Packs/Day Years Used Date Smoking Tobacco: Former Smokeless Tobacco: Never Alcohol Use Standard Drinks/Week Comments No 0 (1 standard drink = 0.6 oz pur e alcohol) Comments Unknown Sex and Gender Information Value Date Recorded Sex Assigned at Not on file Legal Sex Female 5:06 AM EST Gender Identity Not on file Sexual Orientation Not on file Obstetrics History Last Filed Vital Signs Vital Sign Reading Time Taken Comments Blood Pressure 170/80 10/26/2024 1:42 PM EST aut o cuff Pulse 75 10/26/2024 1:42 PM EST auto cuff Temperature 36.4 ??C (97.6 ??F) 10/26/2024 1:42 PM ES T Respiratory Rate 20 09/29/2024 11:00 AM EST Oxygen Saturation 96% 09/29/2024 11:00 AM EST Inhaled Oxygen Concentration - - Weight 110 kg (242 lb 8.1 oz) 09/29/2024 11:00 A M EST Height 172.7 cm (5' 8 ) 09/29/2024 11:00 AM EST Body Mass Index 36.87 09/29/2024 11:00 AM EST Plan of Treatment Upcoming Encounters Date Type Department Care Team (Late st Contact Info) Description 10/01/2025 1:00 PM EST Office Visit Pulmonolgy - [place] [address] [facility] [address] [place] [phone] Shameka Amezquita MD 175 [facility] [address] [place] [address] Health Maintenance Due Date Last Done Comments Breast Cancer Screening 1975 COVID-19 Vaccine (#1) 1978 Diabetes: Annual Foot Exam 1983 Diabetes: Annual Retina Eye Exam 1983 Hepatitis B Vaccines (1 of 3 - 19+ 3-dose series) 1992 Zoster Vaccines (1 of 2) 1992 Pneumococcal Vaccine: 50+ Years (2 of 2 - PCV) 06/12/2018 06/12/2017 Pneumococcal Vaccine: Pediatrics (0 to 5 Years) and At-Risk Patients (6 to 64 Years) (2 of 2 - PCV) 06/12/2018 06/12/2017 Colorectal Cancer Screening: Colonoscopy 08/22/2022 Medicare Annual Wellness Visit 08/22/2022 Social Influencers of Health Screening 08/22/2022 Diabetes: Annual Urine Albumin-Creatinine Ratio (uACR) 04/06/2024 Diabetes: Blood Sugar Control Test (HGBA1C) 04/06/2024 Cervical Cancer Screening: HPV 05/04/2024 05/04/2019 Influenza Vaccine (#1) 2024 DTaP,Tdap,and Td Vaccines (3 - Td or Tdap) 08/13/2024 08/13/2014, 09/22/2010 Depression Screening 05/02/2025 05/02/2024 Diabetes: Annual GFR (Glomerular Filtration Rate) 05/02/2025 05/02/2024, 05/02/2024, 05/02/2024, Additional history exists Hypertension/CHF/CAD Annual BMP Blood Test 05/02/2025 05/02/2024, 05/02/2024, 05/02/2024, Additional history exists Cholesterol Screening (Lipid Panel) 09/20/2029 09/20/2024, 05/02/2024, 05/02/2024, Additional history exists HIV Screening Completed 08/12/2017 Hepatitis C Screening Completed 08/12/2017 HIB Vaccines Aged Out No longer eligi ble based on patient's age to complete this topic HPV Vaccines Aged Out No longer eligi ble based on patient's age to complete this topic Hepatitis A Vaccines Aged Out No long er eligible based on patient's age to complete this topic IPV Vaccines Aged Out No longer eligi ble based on patient's age to complete this topic MMR Vaccines Aged Out No longer eligi ble based on patient's age to complete this topic Meningococcal ACWY Vaccine Aged Out N o longer eligible based on patient's age to complete this topic Meningococcal B Vacine Aged Out No lo nger eligible based on patient's age to complete this topic RSV Immunization Patients Under 20 months Aged Out No longer eligible based on patient's age to complete this topic Varicella Vaccines Aged Out No longer eligible based on patient's age to complete this topic Procedures Procedure Name Priority Date/Time Associated Diagnosis Comments PROTHROMBIN TIME WITH INR Routine 11/10/2024 PROTHROMBIN TIME WITH INR Routine 11/03/2024 PROTHROMBIN TIME WITH INR Routine 10/27/2024 PROTHROMBIN TIME WITH INR Routine 10/20/2024 PROTHROMBIN TIME WITH INR Routine 10/13/2024 PROTHROMBIN TIME WITH INR Routine 09/19/2024 PROTHROMBIN TIME WITH INR Routine 09/12/2024 PROTHROMBIN TIME WITH INR Routine 08/28/2024 DEPRESSION SCREENING Routine 05/02/2024 ANNUAL BMP BLOOD TEST Routine 05/02/2024 LIPID PANEL Routine 05/02/2024 HPV Routine 05/04/2019 HEPATITIS C SCREENING Routine 08/12/2017 HIV SCREENING Routine 08/12/2017 from Last 3 Months or Most Recently Relevant to Health Maintenance Results * Prothrombin time with INR (11/10/2024) Only the most recent of8 resultswithin the time period is included. INR 2.3 Prothrombin Time POC Blood Venous blood specimen / Unknown 11/10/2024 Ricky Connell MD LAB BLOOD ORDERABLES Afua l Result * Annual BMP Blood Test (05/02/2024) Pathologist [facility] Annual BMP Blood Test abstracted Historical Provider HEALTH MAINTENANCE Final Result * Depression Screening (05/02/2024) Depression Screening abstracted Historical Provider HEALTH MAINTENANCE Final Result * Lipid panel (05/02/2024) LDL/HDL Ratio 2 0 - 4 Triglycerides 80 0 - 150 mg/dL Cholesterol 112 0 - 200 mg/dL HDL 48 >=40 mg/dL LDL Cholesterol 48 0 - 100 mg/dL Blood Venous blood specimen / Unknown Historical Provider LAB BLOOD ORDERABLES Afua l Result * Cervical Cancer Screening: HPV (05/04/2019) Cervical Cancer Screening: HPV negative, abstracted Historical Provider HEALTH MAINTENANCE Final Result * HIV Screening (08/12/2017) Pathologist [facility] HIV Screening abstracted [facility] Provider HEALTH MAINTENANCE Final Result * Hepatitis C Screening (08/12/2017) Pathologist [facility] Hepatitis C Screening abstracted [facility] Provider HEALTH MAINTENANCE Final Result from Last 3 Months or Most Recently Relevant to Health Maintenance Insurance * Guarantor: Raine [employer] V Account Type Relation to Patient Date of Phone Billing Address Personal/Family Self 1975 [id number] [place], [place] [id number] [place] [address] MEDICARE Member Subscriber Plan / Payer (Ef fective 2019-Present) Name:Raine Hair V Relation to Subscriber:Self Name:Raine Hair V Payer ID:[id number] Group ID:[id number] Type:Not on file Address: [address] [facility] [place] [address] Care Teams Garment Parts Cutter Hand Relationship Specialty Start Date End Date Ricky Connell MD [address] [place] [id number] PCP - General Internal Medicine 07/27/17
--- OUTSIDE RECORDS SUMMARY | 2024-11-24 16:57 | XMS_ITS | Encounter Summary ---
Author Organization [facility] Address [address] [place] [address] Care Team Providers Care Merchant Seaman Name Role Phone Ricky Connell MD Primary Care Provider [phone] Encounter Details Date Type Department Care Team (Late st Contact Info) Description 11/10/2024 Telephone Internal Medicine - [facility] [address] [place] [phone] Ricky Connell MD [address] [place] [phone] Social History Tobacco Use Types Packs/Day Years [...] as of this encounter Progress Notes * Conor Kumari - 11/10/2024 12:59 PM EST Pt stated she received a call from office asking if she had been in the hospital. She believed it was her pcp that was prescribing. Lvm for pt to call back with more information * Marissa Bustamante MA - 11/10/2024 12:38 PM EST I do not see any previous documentation with what this is regarding. What antibiotic? Who was prescribing? Need more info. * Rosettealejandro Quoc - 11/10/2024 11:32 AM EST Caller requesting call back from provider: Is the caller the patient? yes If caller is not the patient, what is the callers name? Callers relationship to patient? Reason for call back: pt calling back states she was not seen in hospital. She spoke with her dialysis provider who advised her to wait until Wednesday for antibiotic Caller offered to speak with the nurse for assistance: YES Response: Patient offered to speak with nurse for assistance and patient agreed. Message forwarded to nurse. documented in this encounter Plan of Treatment Upcoming Encounters Date Type Department Care Team (Late st Contact Info) Description 10/01/2025 1:00 PM EST Office Visit Pulmonolgy - [place] [address] [phone] Shameka Amezquita MD [address] [facility] [address] [place] [address] documented as of this encounter Visit Diagnoses Not on filedocumented in this encounter Care Teams Merchant Seaman Relationship Specialty Start Date End Date Ricky Connell MD [address] [place] [id number] PCP - General Internal Medicine 07/27/17 documented as of this encounter
--- OUTSIDE RECORDS SUMMARY | 2024-11-24 16:57 | XMS_ITS | Encounter Summary ---
Author Organization [facility] Address [address] [place] [address] Care Team Providers Care Metals Sales Representative Name Role Phone Ricky Connell MD Primary Care Provider [phone] Reason for Visit * Reason Comments Knee Pain Rt knee swelling , r ediness Encounter Details Date Type Department Care Team (Late st Contact Info) Description 10/26/2024 2:30 PM EST [facility] [address] [place] [address] Selene Schwab, ANDRZEJ [address] [place] [address] Redness and swelling of lower leg (Primary Dx); Cellulitis of right lower extremity; Wound of right lower extremity, initial encounter Social History Tobacco Use Types Packs/Day Years [...] on file documented as of this encounter Last Filed Vital Signs Vital Sign Reading Time Taken Comments Blood Pressure 170/80 10/26/2024 1:42 PM EST aut o cuff Pulse 75 10/26/2024 1:42 PM EST auto cuff Temperature 36.4 ??C (97.6 ??F) 10/26/2024 1:42 PM ES T Respiratory Rate - - Oxygen Saturation - - Inhaled Oxygen Concentration - - Weight - - Height - - Body Mass Index - - documented in this encounter Progress Notes * Selene Mcallister NP - 10/26/2024 2:30 PM EST Patient is to go to the emergency room. * Selene Mcallister NP - 10/26/2024 2:30 PM EST CHIEF COMPLAINT: Knee Pain (Rt knee swelling , rediness) HPI: Raine Hair is a 49 y.o. old female with PMH dialysis, AV fistula, blindness, schizophrenia arthritis end-stage renal failure and hypertension. Visit today was booked for a letter of accommodation. However upon entering the room and after greeting patient, patient showed me her legs due to having pain on the knees and swelling. The right leg was beefy red in color with tightening of the skin nonpitting and tenderness on the leg as well as on the knee. There was a 2 cm wide by 2 cm long wound on the right side of the chin which looked red without drainage. Skin was hot to touch upon assessment. The left leg was also visualized, and noted that it is missing a layer of skin but this must have happened about a long time ago because it is totally healed and there are no open areas. There is no redness, no increased warmth, however there is swelling nonpitting 1, and hyperpigmentation of the leg. Patient wants DWIGHT stockings to be ordered. States her legs are swollen because she did not put her DWIGHT stockings on this morning. Also states that her wound on the right leg was due to her bumping into furniture at home. Patient mentioned that she has VNA services, however no visit today due to having been in clinic and the nurse will go by later. Patient states she did not take her medications this morning. BP elevated at 170/80. Patient also states she goes to dialysis. Patient was brought in via [employer] bus, SHORE WORKING SUPERVISOR not in with patient at this time. Patient may need a letter of accommodation, not sure what for, however patient was talking about having bugs in her apartment that are biting her and causing her to itch. Per patient, has requested achange in housing, without success. ROS: See HPI for pertinent positives Constitutional: no weakness fever/ sweats, or weight change Respiratory: no shortness of breath, cough or wheezing Cardiovascular:no chest pain or palpitations, no orthopnea or edema MSK: Positive knee pain right leg, lateral lower leg swelling and right-sided leg redness, ROM not impaired. Neuro: no acute headaches, dizziness, weakness. PHYSICAL EXAM: Visit Vitals BP (!) 170/80 (BP Location: Left arm, Patient Position: Sitting, BP Cuff Size: Large adult) Comment: auto cuff Pulse 75 Comment: auto cuff Temp 36.4 ??C (97.6 ??F) (Temporal) OB Status Postmenopausal Smoking Status Former APPEARANCE: Alert and in no acute distress HEART: RRR with normal S1 and S2, no murmurs, no gallops LUNG: Clear to auscultation bilaterally. Able to talk in full complete sentences EXTREMITIES: Extremities extremely warm with erythema and an open wound noted on the right side of the chin the right leg. NEURO: Alert and oriented x 3. Walks with a walker, however assisted via use of wheelchair while she awaits transportation. SKIN: Skin color, texture, turgor not normal as per above. PAST MEDICAL HISTORY: Patient Active Problem List Diagnosis A-V fistula ([facility]) Hemodialysis AV fistula thrombosis, sequela Acquired blindness of both eyes Allergic rhinitis Anemia Arthritis Asthma Blindness Dialysis patient ([facility]) DVT (deep venous thrombosis) ([facility]) End stage renal failure on dialysis ([facility]) Libia's disease Hypertension Moderate persistent asthma Papanicolaou smear of cervix with atypical squamous cells of undetermined significance (ASC-US) 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 metroNIDAZOLE (METROGEL) 0.75 % (37.5mg/5 gram) vaginal gel Insert vaginally at bedtime x 5 nights montelukast (SINGULAIR) 10 mg tablet Take 1 tablet (10 mg total) by mouth at bedtime. 90 tablet 0 mupirocin (BACTROBAN) 2 % ointment APPLY TOPICALLY TO THE AFFECTED AREA two (2) times a day 22 g 0 mv-min/iron/folic/calcium/vitK (WOMEN'S MULTIVITAMIN ORAL) Multiple Vitamins- Minerals (MULTIVITAMINWOMEN) Tab Take by mouth. nebulizer accessories [facility] J45.09 - Allergic asthma. Nebulizer accessory kit including mask and tubing. omeprazole (PriLOSEC) [address] capsule Take 1 capsule (40 mg total) by mouth 1 (one) time each day.Do not crush or chew. 30 capsule 1 polyethylene glycol (PEG) 17 gram/dose oral powder Take 17 g by mouth daily. polyvinyl alcohol (ARTIFICIAL TEARS) 1.4 % ophthalmic solution Place 1 Drop into both eyes 3 times daily as needed for Other (dry eyes). sevelamer carbonate (RENVELA) 800 mg tablet Take 800 mg by mouth 3 times daily (with meals). sodium zirconium cyclosilicate (Lokelma) 10 gram packet Take 10 g by mouth See Admin Instructions. Non-dialysis days (//) until discontinued by nephrology warfarin (COUMADIN) 3 mg tablet TAKE 1 TABLET BY MOUTH ONCE DAILY 90 tablet 0 ALLERGIES: Allergies Allergen Reactions Egg Yolk Rash Levofloxacin Anaphylaxis LEVAQUIN (LEVOFLOXACIN HEMIHYDR* Gentamicin Influenza Vac Tvs 2009- (Pf) Vac Tvs 2010-07 (pf) Iodinated Contrast Media IVP DYE (IV CONTRAST DYE) IV and oral. Other DIAGNOSTIC X-RAY MATERIALS Vancomycin IMPRESSION: 1. Redness and swelling of lower leg 2. Cellulitis of right lower extremity 3. Wound of right lower extremity, initial encounter PLAN: Patient advised to go to the emergency room now for cellulitis of the right leg. Patient notified that she has a ulcer on her right leg and although patient bumped her skin with furniture, the area is red and swollen and could transiently worsen. Offered ambulance transportation to patient who declined. This provider called [facility]NA nurse from the room and updated on patient's status and advise. Called SHORE WORKING SUPERVISOR to bring to emergency room however, patient wants [employer] bus to bring her home so that she can eat as she has not eaten anything today and then for the SHORE WORKING SUPERVISOR to pick her up and bring her to theemergency room. And, patient was strongly advised to go directly to the emergency room via ambulance or by pickup from SHORE WORKING SUPERVISOR, but patient refused. DWIGHT stockings ordered, patient needs to have legs measured. Discussed red flags that would warrant further evaluation. Plan of care verbally reviewed with patient in Montserratian and Sinhala while at the room and repeated multiple times, patient refused transport to ED and verbalized understanding and is in agreement with plan. States she will go to the [facility] on today. Today's documentation was made using voice recognition software.This note may contain grammatical errors secondary to this software. ORDERS: Orders Placed This Encounter Procedures Compression stockings There are no discontinued medications. COMPRESSION STOCKINGS Selene Mcallister NP on 10/26/2024 documented in this encounter Plan of Treatment Upcoming Encounters Date Type Department Care Team (Late st Contact Info) Description 10/01/2025 1:00 PM EST Office Visit Pulmongy - [place] [address] [place] [address] Shameka Amezquita MD [address] [place] [address] documented as of this encounter Visit Diagnoses Diagnosis Redness and swelling of lower leg- Primary Cellulitis of right lower extremity Wound of right lower extremity, initial encounter documented in this encounter Orders General Supply Count Last Ordered Date First Or dered Date COMPRESSION STOCKINGS 1 10/26/2024 documented in this encounter Care Teams Metals Sales Representative Relationship Specialty Start Date End Date Ricky Connell MD [address] [place] [id number] PCP - General Internal Medicine 07/27/17 documented as of this encounter
[2024-11-24 17:09] LABS: INTERNATIONAL NORM RATIO > 26.0 (0.9-1.1)
[2024-11-24 17:43] LABS: INTERNATIONAL NORM RATIO 5.8 (0.9-1.1)
[2024-11-24 20:27] VITALS: BP 155/71; PULSE 70; RESP 18; TEMP 36.7; O2SAT 97
[2024-11-24 22:20] VITALS: BP 152/78; PULSE 77; RESP 17; TEMP 36.9; O2SAT 98
== END 2024-11-24 22:21 | disposition home or self-care (01) ==
PROVIDERS: Physician Assistant; Emergency Provider Emergency Medicine
DX: T82.838A Hemorrhage due to vascular prosthetic devices, implants and grafts, initial encounter (principal); Y82.8 Other medical devices associated with adverse incidents; Y92.89 Other specified places as the place of occurrence of the external cause; E11.22 Type 2 diabetes mellitus with diabetic chronic kidney disease; I12.0 Hypertensive chronic kidney disease with stage 5 chronic kidney disease or end stage renal disease; N18.6 End stage renal disease; Z79.4 Long term (current) use of insulin; Z99.2 Dependence on renal dialysis; Z79.899 Other long term (current) drug therapy
CPT/HCPCS: 36415; 80048; 85025; 85610; 99283; 99284

== ENCOUNTER 2025-01-17 11:15 | Emergency (ER) | payer OTHER, SELFPAY ==
--- NOTE | 2025-01-17 | ECG_ITS ---
Test Reason : elevated trop Blood Pressure : */* mmHG Vent. Rate : 79 BPM Atrial Rate : 79 BPM P-R Int : 152 ms QRS Dur : 90 ms QT Int : 398 ms P-R-T Axes : 38 -15 98 degrees QTcB Int : 456 ms Normal sinus rhythm Left ventricular hypertrophy with repolarization abnormality ( R in aVL ) Abnormal ECG When compared with ECG of 11-Sep-2010 00:55, No significant changes seen Referred By: Lizet Cabral Electronically Signed By: SUDEEP MARIEE
--- NOTE | ~2025-01-17 | XR_ITS ---
EXAMINATION: XR CHEST CLINICAL INFORMATION: Subjective fever COMPARISON: September 11, 2010 is not available on PACS. TECHNIQUE: Frontal view of the chest was obtained. FINDINGS: Metallic structures overlapping the right lower hemithorax and the left lower hemithorax upper abdomen. Multiple stents overlapping the medial brachial regions bilaterally. Mild prominence of the interstitial markings. Cardiomediastinal silhouette is enlarged. No gross pneumothorax. Calcified plaque Arctic arch. Inadequate evaluation of the axial skeleton due to patient's body habitus. Probable prior osteotomy in the left clavicle. XR/XR chest 1V IMPRESSION: Pulmonary edema and cardiomegaly versus pericardial effusion. Small pleural effusions cannot be excluded. Electronically signed by: Caleb García MD 01/17/2025 02:31 PM EDT
[2025-01-17 11:20] VITALS: BP 134/82; PULSE 97; O2SAT 97
[2025-01-17 11:26] VITALS: BP 193/65; PULSE 73; RESP 14; TEMP 37.3; O2SAT 98; BMI 35.6
[2025-01-17 11:30] LABS: Glucose, Whole Blood 74 mg/dL (60-115)
--- NOTE | 2025-01-17 11:50 | ED_ITS ---
HPI - General Adult General Chief complaint: Nausea/Vomiting/Diarrhea Stated complaint: FEVER,NOT FEELING WELL, FINISHED DIALYSIS PER EMS Time Seen by Provider: 01/17/25 11:43 Source: patient, EMS and old records reviewed Mode of arrival: EMS Limitations: no limitations History of Present Illness ED Provider: DR. Cabral HPI narrative: 49-year-old female ESRD on HD M/W/F last dialysis was today patient had a full session of 4 hours dialysis bowel patient stated that yesterday patient was not feeling well had subjective fever, felt nauseous, and had poor p.o. intake, patient did not have breakfast this morning went to dialysis feeling much better than yesterday but she was feeling generalized weakness. Patient currently declined chest pain, abdominal pain fever, chills, nausea, vomiting, or diarrhea. Patient found to have blood sugar of 74 (patient is nondiabetic) was given oral glucose serum by EMS, repeat BS in the ED was in the 70s. Patient did not exposed to sick contacts. Patient do not make any urine, no urinary symptoms. Related Data Allergies Allergy/AdvReac Type Severity Reaction Status Date / Time egg [EGG] Allergy Severe ANGIOEDEMA Verified 01/17/25 11:27 influenza virus vaccine, Allergy Severe ANAPHYLAXIS Verified 01/17/25 11:27 specific [Influenza Virus Vacc,Specific] Review of Systems 2 Review of Systems: All other systems are reviewed and are negative Constitutional: Reports as per HPI and Reports no additional constitutional complaints Eyes: Reports as per HPI and Reports no additional eye complaints Reports system reviewed and no additional complaints, except as documented Cardiovascular: Reports as per HPI and Reports no additional cardiovascular complaints Respiratory: Reports as per HPI and Reports no additional respiratory complaints Gastrointestinal: Reports as per HPI and Reports no additional gastrointestinal complaints Genitourinary: Reports no additional female genitourinary complaints Musculoskeletal: Reports no additional musculoskeletal complaints Skin/Breast: Reports system reviewed and no additional complaints, except as docu Psychiatric: Reports no additional psychiatric complaints Endocrine: Reports no additional endocrine complaints Hematologic/Lymphatic: Reports no additional hematologic/lymphatic complaints Allergic/Immunologic: Reports no additional allergic/immunologic complaints Reports system reviewed and no additional complaints, except as documented and Reports Abnormal speech present [facility] Social History Social History Unable to assess alcohol history related to: Unknown Smoked in Last 30 Days: No Use of substances other than those prescribed or required for medical reasons: Unknown Advance Directives: No Advance Directives Information Provided: Yes Do you have a plan to hurt others: No Plan Physical Exam ED Vital Signs: Vital Signs - 24 hr 01/17/25 11:26 01/17/25 14:36 01/17/25 17:55 Temperature 99.2 F 99.4 F Pulse Rate 73 76 77 Respiratory Rate 14 18 22 H Blood Pressure 193/65 H 161/65 H 177/80 H Pulse Oximetry 98 96 97 Oxygen Delivery Method Room Air Room Air Room Air BMI result Body Mass Index 35.6 Vital signs have been reviewed and appear to be correct. Blood pressure elevated. Heart rate normal. Respiratory rate normal. Temperature normal. Oxygen saturation normal. Appearance: Alert. Oriented X3. No acute distress. Head: Normal external exam. Normocephalic. Atraumatic. No Helton signs noted. No raccoon eyes noted Eyes: PERRLA. EOMI. Conjunctiva and sclera normal. Eyelids normal. ENT: TM's Normal. Pharynx normal. Uvula midline. Moist mucous membranes. No trismus noted. No drooling noted. No muffled voice noted. Neck: Normal inspection. Neck supple. FROM. No adenopathy. Thyroid Normal. No meningeal signs. No neck mass noted. CVS: Normal heart rate and rhythm. Heart sound normal. No murmurs noted. Pulses normal throughout. Respiratory: No respiratory distress. Painless inspiration. Breath sounds normal. No wheezes/rales/rhonchi noted. Chest nontender. No accessory muscle usage noted or decreased air movement noted. Abdomen: Soft and nontender. Bowel sounds normal in all 4 quadrants. No distention noted. No organomegaly noted. No visible injury noted. Back: No CVA tenderness. Full range of motion noted. Skin: Skin warm and dry. Normal skin color. Normal skin turgor. No rashes/lesions/lacerations noted. Extremities: No lower extremity edema. Extremities exhibit normal range of motion. Extremities nontender. Neuro: Oriented X 3. Cranial nerve exam: II-XII are grossly intact No motor deficit. No sensory deficit. Reflexes normal. Course Reevaluation(s) Reevaluation #1: Patient report full improvement of her symptoms, unremarkable labs. COVID-19 infection is positive. Time: 19:27 Medications Administered Discontinued Medications Generic Name Dose Route Start Last Admin Trade Name Percy PRN Reason Stop Dose Admin Acetaminophen 975 mg 01/17/25 18:09 01/17/25 18:17 Acetaminophen 325 Mg Tablet PO 01/17/25 18:10 975 mg ONCE ONE Administration Medical Decision Making Differential Diagnosis Differential Diagnoses: The differential diagnosis associated with the presentation includes (Infection, electrolyte derangement, severe anemia, viral change, pneumonia, pneumothorax, pleural effusion.) Admission/Observation Consideration of admission/observation: Escalation of care including admission/observation considered Lab Data [facility] Lab Attestation statement: I reviewed the patient's lab results. 01/17/25 14:49 01/17/25 13:49 Labs: Lab Results 01/17/25 01/17/25 01/17/25 Range/Units 11:26 13:42 13:49 WBC 2.7 L (4.8-10.8) X10*3/uL RBC 3.61 L (4.20-5.50) X10*6/uL Hgb 11.1 L (12.0-16.0) g/dl Hct 35.3 L (37.0-47.0) % MCV 97.8 (80.0-98.0) fL MCH 30.7 (27.0-33.0) pg MCHC 31.4 (31.0-35.0) g/dl RDW 15.7 (11.0-16.0) % Plt Count 97 L D (160-400) X10*3/uL MPV 11.7 (9.4-12.3) fL Immature Gran % (Auto) 1.9 H (0.0-0.4) % Neut % (Auto) 63.0 (45-73) % Lymph % (Auto) 11.7 L (20-40) % [place] % (Auto) 20.4 H (2-11) % Eos % (Auto) 1.1 (0-4) % Baso % (Auto) 1.9 (0-2) % Lymph # (Auto) 0.3 L (1.2-4.9) X10*3/uL [place] # (Auto) 0.5 (0.1-1.2) X10*3/uL Eos # (Auto) 0.0 (0.0-0.4) X10*3/uL Baso # (Auto) 0.1 (0.0-0.2) X10*3/uL Abs Immat Gran (auto) 0.05 H (0.00-0.03) X10*3/uL Absolute Neuts (auto) 1.7 L (2.0-8.3) x10*3/uL Absolute Nucleated RBC 0.000 (0.0-0.012) X10*3/uL Nucleated RBC % (auto) 0.0 (0.0-0.2) /100WBC Smear Tech's Comments VERIFIED Sodium 138 (135-145) mmol/L Potassium 4.1 (3.3-5.1) mmol/L Chloride 101 (96-108) mmol/L Carbon Dioxide 25 (22-29) mmol/L Anion Gap 16 (12-20) BUN 24 H (9-16) mg/dL Creatinine 5.26 H* (0.5-1.4) mg/dL Estim Creat Clear Calc 16.1 Estimated GFR 9 POC Glucose 74 (60-115) mg/dL Random Glucose 91 (60-115) mg/dL Calcium 8.6 D (8.4-10.2) mg/dL Total Bilirubin 0.9 (0.0-1.0) mg/dL Direct Bilirubin 0.3 (0.0-0.5) mg/dL AST 34 H (5-31) U/L ALT 33 H (0-31) U/L Alkaline Phosphatase 579 H (39-117) U/L Troponin I High Sens 86.6 H* (<3.5-17.0) ng/L Total Protein 7.3 (6.5-8.0) g/dL Albumin 3.9 (3.5-5.0) g/dL Lipase 97 H (8-78) U/L Influenza Type A (PCR) NEGATIVE (Negative) Influenza Type B (PCR) NEGATIVE (Negative) RSV RNA Qual (PCR) NEGATIVE (Negative) SARS-CoV-2 RNA (RT-PCR) POSITIVE A (Negative) 01/17/25 01/17/25 Range/Units 14:49 16:41 WBC 2.5 L (4.8-10.8) X10*3/uL RBC 3.38 L (4.20-5.50) X10*6/uL Hgb 10.3 L (12.0-16.0) g/dl Hct 32.6 L (37.0-47.0) % MCV 96.4 (80.0-98.0) fL MCH 30.5 (27.0-33.0) pg MCHC 31.6 (31.0-35.0) g/dl RDW 15.9 (11.0-16.0) % Plt Count 101 L (160-400) X10*3/uL MPV 11.9 (9.4-12.3) fL Immature Gran % (Auto) 0.4 (0.0-0.4) % Neut % (Auto) 65.9 (45-73) % Lymph % (Auto) 9.2 L (20-40) % [place] % (Auto) 22.1 H (2-11) % Eos % (Auto) 1.6 (0-4) % Baso % (Auto) 0.8 (0-2) % Lymph # (Auto) 0.2 L (1.2-4.9) X10*3/uL [place] # (Auto) 0.6 (0.1-1.2) X10*3/uL Eos # (Auto) 0.0 (0.0-0.4) X10*3/uL Baso # (Auto) 0.0 (0.0-0.2) X10*3/uL Abs Immat Gran (auto) 0.01 (0.00-0.03) X10*3/uL Absolute Neuts (auto) 1.6 L (2.0-8.3) x10*3/uL Absolute Nucleated RBC 0.000 (0.0-0.012) X10*3/uL Nucleated RBC % (auto) 0.0 (0.0-0.2) /100WBC Smear Tech's Comments Sodium (135-145) mmol/L Potassium (3.3-5.1) mmol/L Chloride (96-108) mmol/L Carbon Dioxide (22-29) mmol/L Anion Gap (12-20) BUN (9-16) mg/dL Creatinine (0.5-1.4) mg/dL Estim Creat Clear Calc Estimated GFR POC Glucose (60-115) mg/dL Random Glucose (60-115) mg/dL Calcium (8.4-10.2) mg/dL Total Bilirubin (0.0-1.0) mg/dL Direct Bilirubin (0.0-0.5) mg/dL AST (5-31) U/L ALT (0-31) U/L Alkaline Phosphatase (39-117) U/L Troponin I High Sens 91.5 H* 100.7 H* (<3.5-17.0) ng/L Total Protein (6.5-8.0) g/dL Albumin (3.5-5.0) g/dL Lipase (8-78) U/L Influenza Type A (PCR) (Negative) Influenza Type B (PCR) (Negative) RSV RNA Qual (PCR) (Negative) SARS-CoV-2 RNA (RT-PCR) (Negative) Independent Interpretation I performed an independent interpretation of an: Plain X-Ray (Chest: No acute intrathoracic pathology.) Radiology Impression Discussion of test interpretation with radiology: I have reviewed the radiologist's reading. Discharge Plan Discharge Clinical Impression: Episode of generalized weakness, COVID-19 virus infection Patient Disposition: Home, Self-Care Instructions: COVID-19 (Coronavirus Disease 2019) (ED) Print Language: Hong Konger
--- OUTSIDE RECORDS SUMMARY | 2025-01-17 13:05 | XMS_ITS | Encounter Summary ---
Author Organization [facility] Address [address] [place] [address] Care Team Providers Care Terrazzo Tile Setter Name Role Phone Jose Amaya Primary Care Provider [phone] Reason for Visit * Reason Comments Care Coordination This CHW contacted t he Encounter Details Date Type Department Care Team (Late st Contact Info) Description 02/02/2017 Interim Notes [facility] [address] [place] [address] Kristy Mesa, Community Health Worker [address] [place] [address] Social History Tobacco Use Types Packs/Day Years [...] on filedocumented in this encounter Care Teams Terrazzo Tile Setter Relationship Specialty Start Date End Date Jose Amaya PA [address] [place] [address] PCP - General Internal Medicine 01/18/17 10/03/24 documented as of this encounter
--- OUTSIDE RECORDS SUMMARY | 2025-01-17 13:05 | XMS_ITS | Encounter Summary ---
Author Organization [facility] Address [address] [place] [address] Care Team Providers Care Retail Support Associate Name Role Phone Jose Amaya Primary Care Provider [phone] Reason for Visit * Reason Comments Care Coordination This CHW contacted t he patient to follow up on the patients Dialysis Center transfer. Encounter Details Date Type Department Care Team (Late st Contact Info) Description 02/10/2017 Interim Notes [facility] [address] [place] [address] Kristy Mesa, Community Health Worker [address] [place] [address] Social History Tobacco Use Types Packs/Day Years [...] on filedocumented in this encounter Care Teams Retail Support Associate Relationship Specialty Start Date End Date Jose Amaya PA [address] [place] [address] PCP - General Internal Medicine 01/18/17 10/03/24 documented as of this encounter
--- OUTSIDE RECORDS SUMMARY | 2025-01-17 13:05 | XMS_ITS | Encounter Summary ---
Author Organization [facility] Address [address] [place] [address] Care Team Providers Care Crystal Machining Coordinator Name Role Phone Jose Amaya Primary Care Provider [phone] Reason for Visit * Reason Comments Care Coordination contacted the [facility]anni [facility] regarding Dialysis Center transfer. Encounter Details Date Type Department Care Team (Late st Contact Info) Description 02/19/2017 Interim Notes [facility] [address] [place] [address] Kristy Mesa, Community Health Worker [address] [place] [address] Social History Tobacco Use Types Packs/Day Years [...] on filedocumented in this encounter Care Teams Crystal Machining Coordinator Relationship Specialty Start Date End Date Jose Amaya PA [address] [place] [address] PCP - General Internal Medicine 01/18/17 10/03/24 documented as of this encounter
--- OUTSIDE RECORDS SUMMARY | 2025-01-17 13:05 | XMS_ITS | Encounter Summary ---
Author Organization [facility] Address [address] [place] [address] Care Team Providers Care Federal Appellate Clerk Name Role Phone Jose Amaya Primary Care Provider Reason for Visit * Reason Comments Care Coordination CHW returned patient s message. Encounter Details Date Type Department Care Team ([facility] st Contact Info) Description 02/19/2017 Interim Notes [facility] [address] [place] [address] Kristy Mesa, Community Health Worker [address] [place] [address] Social History Tobacco Use Types Packs/Day Years [...] on filedocumented in this encounter Care Teams Federal Appellate Clerk Relationship Specialty Start Date End Date Jose Amaya PA [address] [place] [address] PCP - General Internal Medicine 01/18/17 10/03/24 documented as of this encounter
--- OUTSIDE RECORDS SUMMARY | 2025-01-17 13:06 | XMS_ITS | Patient Health Record ---
Author Organization [facility] Address [address] [place], [place] [id number] Care Team Providers Care Spool Worker Name Role Phone [facility] Primary Care Provider Unavailable [facility] Unavailable [phone] Reason For Referral No Information Plan Of Treatment No Information Insurance Providers Payer Name Payer Address Payer Phone Subscriber Number Group Number Insured Name Patient Relationship to Insured Coverage Start Date Coverage End Date [facility] [address] [place] [phone] [facility] [id number] Kaykay Mercerulysses Raine Self - patient is the insured 9 [place] Medicare Part [place] [employer] [address] [place] [address] [id number] Raine Ravi Self - patient is the insured 3
--- OUTSIDE RECORDS SUMMARY | 2025-01-17 13:06 | XMS_ITS | Encounter Summary ---
Author Organization [facility] Address [address] [place] [address] Care Team Providers Care Feather Mixer Name Role Phone Jose Amaya Primary Care Provider [phone] Reason for Visit * Reason Comments Care Coordination [facility] contacted the javier christensen for follow up. Encounter Details Date Type Department Care Team (Late st Contact Info) Description 03/31/2017 Interim Notes [facility] [address] [place] [address] Kristy Mesa, Community Health Worker [address] [place] [address] Social History Tobacco Use Types Packs/Day Years [...] on filedocumented in this encounter Care Teams Feather Mixer Relationship Specialty Start Date End Date Jose Amaya PA [address] [place] [address] PCP - General Internal Medicine 01/18/17 10/03/24 documented as of this encounter
--- OUTSIDE RECORDS SUMMARY | 2025-01-17 13:06 | XMS_ITS | Clinical Summary ---
Author Organization [facility] Address [address] [place] [address] Care Team Providers Care Territory Development Manager Name Role Phone Unavailable Primary Care Provider [...] vial several times before opening. Active ARTIFICIAL TEARS,[id number], ophthalmic solution INSTILL ONE DROP IN [...] glovesIndications :End stage renal failure on dialysis ([facility]) Please use one pair of gloves [...] Active SENSIPAR 30 mg tabletIndications :Dialysis patient ([facility] V24),End stage renal failure on dialysis ([facility]),HTN, goal below 140/90 Take 1 Tab by mouth once daily 30 Tab 10 01/30/20 17 Active doxazosin (CARDURA) 1 mg tabletIndications :Dialysis patient ([facility] V24),End stage renal failure on dialysis ([facility]),HTN, goal below 140/90 Take 2 Tabs by mouth nightly at bedtime 60 Tab 5 01/30/20 17 Active cloNIDine HCl (CATAPRES) 0.2 mg tabletIndications :Dialysis patient ([facility] V24),End stage renal failure on dialysis ([facility]),HTN, goal below 140/90 TAKE ONE TABLET BY MOUTH TWICE DAILY ON non-hemodialysis DAYS, AND TAKE ONE TABLET AT BEDTIME ON hemodialysis DAYS. 60 Tab 5 01/30/20 17 Active carvedilol (COREG) 12.5 mg tabletIndications :Dialysis patient ([facility] V24),End stage renal failure on dialysis ([facility]),HTN, goal below 140/90 Take 1 Tab by mouth 2 (two) times daily 60 Tab 7 01/30/20 17 Active FOSRENOL 1,000 mg chewable tabletIndications :Dialysis patient ([facility] V24),End stage renal failure on dialysis ([facility]),HTN, goal below 140/90 Chew tablets completely before swallowing. Do not swallow intact tablets. 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 low back pain, with sciatica [...] anticoagulation,E nd stage renal failure on dialysis ([facility]) Take 1 Tab by mouth once daily 30 Tab 5 05/28/20 17 Active nebulizer accessoriesIndica tions:Moderate persistent asthma without complication ([facility]) J45.09 1 Device 06/04/20 17 Active omeprazole (PRILOSEC) [address] capsuleIndication s:Gastroesophagea l reflux disease without esophagitis TAKE ONE CAPSULE BY MOUTH EVERY MORNING BEFORE BREAKFAST 30 Cap 3 06/17/20 17 Active nebulizer accessoriesIndica tions:Asthma, allergic, unspecified asthma severity, uncomplicated ([facility]) J45.09 - Allergic asthma. Nebulizer accessory kit including mask and tubing. 1 Device 2 06/24/20 17 Active nebulizer and compressorIndicat ions:Asthma, allergic, unspecified asthma severity, uncomplicated ([facility]) J45.909 - Allergic asthma 1 Each 06/24/20 [...] carbonate (RENVELA) 800 mg tabletIndications :Dialysis patient ([facility] V24),End stage renal failure on dialysis ([facility]),HTN, goal below 140/90 TAKE 3.5 TABLETS BY MOUTH 3 (THREE) TIMES A DAY WITH MEALS 315 Tab 5 02/29/20 18 Active FLOVENT HFA 110 mcg/actuation inhaler INHALE two PUFFS BY MOUTH INTO THE 2 (two) times a day. GARGLE MOUTH AFTER USE 12 g 2 08/01/20 18 Active Active Problems Problem Noted Date Diagnosed Date Routine adult health maintenance 07/07/2017 Moderate persistent asthma ([facility]) 06/04/2017 History of mammogram 11/13/2016 Overview (11/13/2016): 10/19/2016: no mammographic evidence of malignancy. Weakness 06/09/2016 Overview (06/09/2016): CXR 06/09/16 at [facility] shows no consolidation, minimal atelectatic changes in L lung base Chronic anticoagulation 06/04/2016 Dialysis patient ([facility] V24) End stage renal failure on dialysis Overview [...] Plan of Treatment [place] on file [place]
--- OUTSIDE RECORDS SUMMARY | 2025-01-17 13:06 | XMS_ITS | Clinical Summary ---
Author Organization [facility] Address [address] [place] [address] Care Team Providers Care Employment Counselor Name Role Phone Ricky Connell MD Primary Care Provider [phone] Allergies Active Allergy Reactions Criticality Noted Date [...] every night at bedtime. 0 Active B Yqxmqvr-P-Sqgmo Acid (ARIANA-DOTTIE PO) Take by mouth daily. [...] age to complete this topic Care Teams Employment Counselor Relationship Specialty Start Date End Date Ricky Connell MD [address] [place] [id number] PCP - General Internal Medicine 11/14/20
--- OUTSIDE RECORDS SUMMARY | 2025-01-17 13:06 | XMS_ITS | Encounter Summary ---
Author Organization [facility] Address [address] [place] [address] Phone Care Team Providers Care Railroad Car Loader Name Role Phone Unavailable Primary Care Provider Unavailabl e Encounter Details Date Type Department Care Team (Late st Contact Info) Description 01/15/2025 Treatment [facility] [address] [place] [address] Dionna Rubio MD [address] [place] [address] End stage renal disease; Dependence [...] Dialysis Note - Dionna Rubio MD - 01/15/2025 12:00 AM EDT BASIC NOTE Patient: Raine Centeno KaykayDidierRusso : 1975 Note Author: DIONNA RUBIO MD Service Date: 01/15/2025 Telehealth encounter using audiovisual technology, performed according to state requirements. Appropriate patient consent obtained. This patient was personally seen for a basic visit as part of routine monthly dialysis care for end stage renal disease. Attending Certification Technician: DIONNA RUBIO Dialysis Location: [facility] Schedule: Shift: ADEQUACY ASSESSMENT Kt/V, Natural Log 1.35 (12/13/24) 1.39 (11/15/24) 1.26 (10/18/24) UREA REDUCTION RATIO (%) 68 (12/13/24) 69 (11/15/24) 67 (10/18/24) BUN 63 (12/13/24) 54 (11/15/24) 45 (10/18/24) BUN Post Dialysis 20 (12/13/24) 17 (11/15/24) 15 (10/18/24) Creatinine 7.96 (12/13/24) 8.84 (11/15/24) 8.15 (10/18/24) Bicarbonate (CO2) 26 (12/13/24) 24 (11/15/24) 25 (10/18/24) Sodium 137 (12/13/24) 139 (11/15/24) 139 (10/18/24) ANEMIA ASSESSMENT Hgb 10.0 (01/10/25) 9.9 (01/03/25) 9.0 (12/27/24) Iron Saturation (TSat) 93 (12/13/24) 32 (11/15/24) 28 (10/18/24) Ferritin 1,906 (12/13/24) 1,327 (11/15/24) 993 (10/18/24) Iron 173 (12/13/24) 57 (11/15/24) 60 (10/18/24) TIBC 186 (12/13/24) 179 (11/15/24) 216 (10/18/24) MCV 97.8 (12/13/24) 101.4 (11/15/24) 100.6 (10/18/24) Platelets 145 (12/13/24) 124 (11/15/24) 143 (10/18/24) BMM ASSESSMENT Calcium, Adjusted Total 8.8 12/13/24 8.5 11/15/24 8.8 10/18/24 Calcium 8.8 12/13/24 8.5 11/15/24 8.8 10/18/24 Phosphorus, Serum 4.7 12/13/24 5.3 11/15/24 5.0 10/18/24 Ca*PO4 41.4 12/13/24 45.0 11/15/24 44.0 10/18/24 PTH, Intact 3,863 12/13/24 3,382 11/15/24 2,899 10/18/24 Magnesium 1.9 12/13/24 2.0 11/15/24 2.0 10/18/24 Alkaline Phosphatase 599 12/13/24 554 11/15/24 592 10/18/24 Aluminum 5 09/20/24 NUTRITION ASSESSMENT Albumin 4.3 12/13/24 4.1 11/15/24 4.1 10/18/24 Potassium 5.1 12/13/24 4.5 11/15/24 4.3 10/18/24 ADDITIONAL LABS White Blood Cells 5.9 (12/13/24) 7.3 (11/15/24) 7.0 (10/18/24) Cholesterol 132 (12/13/24) 118 (09/20/24) HDL 52 (12/13/24) 45 (09/20/24) LDL-Calc 61 (12/13/24) 61 (09/20/24) Triglycerides 96 (12/13/24) 62 (09/20/24) Hep B Surface Antibody 94 (09/20/24) Uric Acid 6.7 (09/20/24) ADDITIONAL COMMENT COMMENTS: 10/16/24 stable 10/23/24 same issues 11/03/24 no new probs 11/10/24 doing ok 11/27/24 stable 01/09/25 same issues 12/04/24 same issues 12/13/24 stable 12/15/24 no new issues 12/25/24 has appt for fistulogram 01/03/25 no new issues 01/15/25 doing ok 08/28/24 same issues 09/12/24 stable 09/25/24 doing ok 05/17/24 no new issues 05/29/24 stable 06/07/24 doing ok 06/19/24 same issues 06/26/24 stable 07/03/24 no new issurs 07/12/24 stable 07/17/24 same issues 07/29/24 stable 08/02/24 same issues 08/08/24 stable 08/14/24 doing same 08/21/24 no new issues 10/04/24 same issues 10/11/24 stable Signed by: DIONNA RUBIO MD on 01/15/2025 at 11:57:17 PM Transcribed by: DIONNA RUBIO MD on 01/15/2025 at 11:57:17 PM documented in this encounter Plan of Treatment Not on file documented as of this encounter Visit Diagnoses Diagnosis End stage renal disease Dependence on renal dialysis documented in this encounter
--- OUTSIDE RECORDS SUMMARY | 2025-01-17 13:06 | XMS_ITS | Encounter Summary ---
Author Organization [facility] Address [address] [place] [address] Care Team Providers Care Founder President And Ceo Name Role Phone Jose Amaya Primary Care Provider [phone] Reason for Visit * Reason Comments Care Coordination [facility] contacted the javier christensen regarding Dialysis Centers. Encounter Details Date Type Department Care Team (Late st Contact Info) Description 04/05/2017 Interim Notes [facility] [address] [place] [address] Kristy Mesa, Community Health Worker [address] [place] [address] Social History Tobacco Use Types Packs/Day Years [...] on filedocumented in this encounter Care Teams Founder President And Ceo Relationship Specialty Start Date End Date Jose Amaya PA [address] [place] [address] PCP - General Internal Medicine 01/18/17 10/03/24 documented as of this encounter
--- OUTSIDE RECORDS SUMMARY | 2025-01-17 13:06 | XMS_ITS | Encounter Summary ---
Author Organization [facility] Address [address] [place] [address] Care Team Providers Care Feller Buncher Operator Name Role Phone Ricky Connell MD Primary Care Provider [phone] Encounter Details Date Type Department Care Team (Late st Contact Info) Description 01/11/2025 [facility] [address] [place] [phone] Ricky Connell MD [address] [place] [address] Social History Tobacco Use Types Packs/Day Years [...] Care Team (Late st Contact Info) Description 02/01/2025 10:15 AM EDT Office Visit Internal Medicine - [address] [phone] Selene Schwab NP [address] [place] [address] 10/01/2025 1:00 PM EST [facility] [address] [place] [address] Shameka Amezquita MD [address] [place] [address] documented as of this encounter Visit Diagnoses Not on filedocumented in this encounter Care Teams Feller Buncher Operator Relationship Specialty Start Date End Date Ricky Connell MD [address] [place] [address] PCP - General Internal Medicine 07/27/17 documented as of this encounter
--- OUTSIDE RECORDS SUMMARY | 2025-01-17 13:06 | XMS_ITS | Clinical Summary ---
Author Organization [place] [id number] [facility] Building Address [address] [place] [address] Phone Care Team Providers Care Groover Operator Name Role Phone Ricky Connell MD Primary Care Provider [phone] Allergies Active Allergy Reactions Criticality Noted Date [...] affected areas only if needed 022 Active doxazosin (CARDURA) 1 mg tablet Take 2 Tablets by mouth at bedtime. TAKE 2 TABLETS BY MOUTH AT BEDTIME 024 Active epoetin ford-epbx (Retacrit) 20,000 unit/mL injection Inject as directed once a week. 023 Active glycerin (pediatric) suppository Place 1 g rectally Once. 024 Active levothyroxine (SYNTHROID, LEVOTHROID) 75 mcg tablet TAKE 1 TABLET BY MOUTH ONCE DAILY 024 Active menthol-zinc oxide (Calmoseptine) 0.44-20.6 % ointment Apply 1 Each topically 4 times daily. 021 Active metroNIDAZOLE (METROGEL) 0.75 % (37.5mg/5 gram) vaginal gel Insert vaginally at bedtime x 5 nights 023 Active mv-min/iron/foli c/calcium/vitK (WOMEN'S MULTIVITAMIN ORAL) Multiple Vitamins-Minera ls (MULTIVITAMIN WOMEN) Tab Take by mouth. Active polyethylene glycol (PEG) 17 gram/dose oral powder Take 17 g by mouth daily. 019 Active polyvinyl alcohol (ARTIFICIAL TEARS) 1.4 % ophthalmic solution Place 1 Drop into both eyes 3 times daily as needed for Other (dry eyes). 023 Active nebulizer accessories [facility] [place] J45.09 - Allergic asthma. Nebulizer accessory kit including mask and tubing. 017 Active sevelamer carbonate (RENVELA) 800 mg tablet Take 800 mg by mouth 3 times daily (with meals). 015 Active lanolin auwvvmy-vh-m.pet -ceres (Minerin Creme) cream 1 Units by Does not apply route 2 times daily. APPLY cream TO ARMS, BACK, ON LEGS, abdomen IN THE MORNING AND IN THE EVENING FOR DRYNESS 021 Active sodium zirconium cyclosilicate (Lokelma) 10 gram packet Take 10 g by mouth See Admin Instructions. Non-dialysis days (//SatSun) until discontinued by nephrology 023 Active carvediloL (COREG) 12.5 mg tabletIndication s:Essential (primary) hypertension TAKE 1 TABLET BY MOUTH two (2) times a day WITH MEALS 180 tablet 025 Active warfarin (COUMADIN) 3 mg tablet TAKE 1 TABLET BY MOUTH ONCE DAILY 90 tablet 025 Active montelukast (SINGULAIR) 10 mg tablet TAKE 1 TABLET BY MOUTH ONCE DAILY AT BEDTIME 90 tablet 025 Active fluticasone HFA (FLOVENT HFA) 110 mcg/actuation inhalerIndicatio ns:Other specified chronic obstructive pulmonary disease (CMS/HCC V24, CMS/HCC V28) INHALE 2 PUFFS INTO THE lungs two [...] 4 TO 6 HOURS NEEDED FOR WHEEZING 025 Active fluticasone HFA (FLOVENT HFA) 110 mcg/actuation inhaler INHALE TWO PUFFS BY MOUTH INTO THE LUNGS two (2) times a day 024 Active docusate sodium (COLACE) 100 mg capsuleIndicatio ns:Gastro-esopha geal reflux disease without esophagitis TAKE 1 CAPSULE BY MOUTH two (2) times a day NEEDED FOR CONSTIPATION 60 capsule 5 025 Active omeprazole (PriLOSEC) [address] capsule Take 1 capsule (40 mg total) by mouth 1 (one) time each day. Do not crush or chew. 90 capsule 1 025 Active mupirocin (BACTROBAN) 2 % ointment APPLY TOPICALLY TO THE AFFECTED AREA two (2) times a day 22 g 1 025 Active albuterol HFA (PROAIR HFA ; PROVENTIL HFA ; VENTOLIN HFA) 90 mcg/actuation inhalerIndicatio ns:Mild persistent asthma without complication INHALE 2 PUFFS BY MOUTH INTO THE lungs EVERY 6 HOURS NEEDED FOR WHEEZING 8.5 g 025 Active cloNIDine (CATAPRES) 0.2 mg tabletIndication s:Essential (primary) hypertension TAKE 1 TABLET BY MOUTH IN THE MORNING AND TAKE 1 TABLET BY MOUTH IN THE EVENING 60 tablet 025 Active cholecalciferol (VITAMIN D-3) 50 mcg (2,000 unit) capsule Take 2,000 Units by mouth daily. 30 capsule 025 Active diphenhydrAMINE (Banophen) 50 mg capsule Take 1 capsule (50 mg total) by mouth every 6 (six) hours if needed for itching. Appt needed for further refills 50 capsule 025 Active ammonium lactate (AMLACTIN) 12 % cream Apply topically 2 (two) times a day if needed for dry skin. Appt needed for further refills 385 g 025 Active acetaminophen (TYLENOL) 325 mg tablet Take 2 tablets (650 mg total) by mouth every 6 (six) hours if needed for mild pain. 30 tablet 025 Active loratadine (CLARITIN) 10 mg tabletIndication s:Allergy, unspecified, sequela TAKE 1 TABLET BY MOUTH TWICE A WEEK 10 tablet 2 025 Active cholecalciferol (VITAMIN D-3) 50 mcg (2,000 unit) capsule Take 2,000 Units by mouth daily. 2024 Discontinued(R eorder) docusate sodium (COLACE) 100 mg capsule TAKE 1 CAPSULE BY MOUTH two (2) times a day NEEDED FOR CONSTIPATION 024 2024 Discontinued omeprazole (PriLOSEC) [address] capsule Take 1 capsule (40 mg total) by mouth 1 (one) time each day. Do not crush or chew. 30 capsule 1 025 2024 Discontinued ammonium lactate (AMLACTIN) 12 % cream APPLY TO THE AFFECTED AREA TOPICALLY two (2) times a day 385 g 025 2024 Discontinued(R eorder) mupirocin (BACTROBAN) 2 % ointment APPLY TOPICALLY TO THE AFFECTED AREA two (2) times a day 22 g 025 2024 Discontinued albuterol HFA (PROAIR HFA ; PROVENTIL HFA ; VENTOLIN HFA) 90 mcg/actuation inhalerIndicatio ns:Mild persistent asthma without complication INHALE 2 PUFFS BY MOUTH INTO THE lungs EVERY 6 HOURS NEEDED FOR WHEEZING 8.5 g 025 2024 Discontinued Banophen 50 mg capsule TAKE 1 CAPSULE BY MOUTH EVERY 6 HOURS NEEDED FOR ITCH 50 capsule 025 2024 Discontinued(R eorder) cloNIDine (CATAPRES) 0.2 mg tabletIndication s:Essential (primary) hypertension TAKE 1 TABLET BY MOUTH IN THE MORNING AND TAKE 1 TABLET BY MOUTH IN THE EVENING 60 tablet 025 2024 Discontinued(R eorder) acetaminophen (TYLENOL) 325 mg tablet Take 2 tablets (650 mg total) by mouth every 6 (six) hours if needed for mild pain. 30 tablet 025 2024 Discontinued(R eorder) loratadine (CLARITIN) 10 mg tabletIndication s:Allergy, unspecified, sequela TAKE 1 TABLET BY MOUTH TWICE A WEEK 10 tablet 025 2024 Discontinued albuterol 2.5 mg /3 mL (0.083 %) nebulizer solutionIndicati ons:Other specified chronic obstructive pulmonary disease ([facility] V24, [facility] V28) INHALE THE CONTENT OF 1 VIAL (3mls) VIA NEBULIZER EVERY 4 TO 6 HOURS NEEDED FOR WHEEZING 360 mL 1 025 2024 Discontinued Active Problems Problem Noted Date Diagnosed Date Redness and swelling of lower leg 10/26/2024 Cellulitis of right lower extremity 10/26/2024 Wound of right leg 10/26/2024 Arthritis 08/02/2024 [address] fistula thrombosis, 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 Acquired blindness of both eyes 11/14/2020 Schizophrenia ([facility] V24, [facility] V28) 019 Overview (08/02/2024): Per [facility] ED May 2019 A-V fistula ([facility] V24) 03/21/2019 Anemia 03/21/2019 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 Papanicolaou smear of cervix with atypical squamous cells of undetermined significance (ASC-US) 11/04/2017 Overview (08/02/2024): History: PAP 08/12/2017: ASCUS; High Risk HPV DNA negative PAP 05/04/2019 Neg Cytology, Neg HPV DVT (deep venous thrombosis) ([facility] V24, [facility]/ [facility] V28) 07/16/2017 Overview (08/02/2024): Upper extremity, with bilateral vascular stents in the axilla On Coumadin Moderate persistent asthma 06/04/2017 End stage renal failure on d ialysis ([facility] V24, [facility] V28) 04/19/2015 Overview (08/02/2024): Dr. 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 ([facility] V24, [facility] V28) 02/22/2013 Overview (08/02/2024): Dr altman did mri and pt saw dr ybarra Allergic rhinitis 01/10/2013 Asthma 01/10/2013 Blindness 01/10/2013 Overview (08/02/2024): Dr dahiana sales,[facility] Dr ellis fu,[facility] previous pcp Neuro dr ybarra Hypertension 01/10/2013 S/P kidney transplant 01/10/2013 Overview (08/02/2024): Dr De La Paz nephro.transplant 09/25 It was removed in 2013 , pt is on dialysis Encounters Date Type Department Care Team Description 01/16/2025 Anticoagulation - Warfarin Visit Coumadin [facility] [address] [place] [address] Zenia Lorenz LPN Deep vein thrombosis (DVT) of both upper extremities, unspecified chronicity, unspecified vein ([facility] V24, [facility] V28) (Primary Dx) 01/11/2025 Telephone Internal Medicine - [address] [place], [place] [phone] Ricky Connell MD information needed about pt 01/11/2025 Telephone Internal Medicine - [address] [place], [place] [phone] Ricky Connell MD 01/05/2025 Anticoagulation - Warfarin Visit Coumadin 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 Deep vein thrombosis (DVT) of both upper extremities, unspecified chronicity, unspecified vein ([facility] V24, [facility]/HCC V28) (Primary Dx) 01/01/2025 Anticoagulation - Warfarin Visit Coumadin [address] [phone] Zenia Lorenz LPN Deep vein thrombosis (DVT) of both upper extremities, unspecified chronicity, unspecified vein ([facility] V24, [facility] V28) (Primary Dx) 12/28/2024 Telephone Internal Medicine - [address] [phone] Ricky Connell MD Fitting for DME 12/26/2024 Anticoagulation - Warfarin Visit [facility] [address] [place] [address] Zenia Lorenz LPN Deep vein thrombosis (DVT) of both upper extremities, unspecified chronicity, unspecified vein ([facility] V24, [facility] V28) (Primary Dx) 12/15/2024 Telephone Internal Medicine - [address] [phone] Ricky Connell MD Faxed Order ([facility] ) 12/13/2024 Billing Patient Not Present Internal Medicine [address] [phone] Ricky Connell MD Major depressive disorder, recurrent, severe with psychotic features ([facility] V24, [facility] V28) (Primary Dx); End stage renal disease ([facility] V24, [facility] V28); Essential (primary) hypertension; Atrial fibrillation, unspecified type ([facility] V24, [facility] V28); Type 2 diabetes mellitus with hyperosmolarity without nonketotic hyperglycemic-hyperosm olar coma ([facility]) ([facility] V24, [facility] V28); Other obesity due to excess calories 12/08/2024 Anticoagulation - Warfarin Visit Coumadin [address] [place] [phone] Dahiana Song LPN Deep vein thrombosis (DVT) of both upper extremities, unspecified chronicity, unspecified vein (CMS/HCC V24, CMS/HCC V28) (Primary Dx) 12/08/2024 Telephone Internal Medicine - [address] [phone] Ricky Connell MD Faxed Order ([facility] (Certification/POC 11/23/24-01/21/25)) 12/07/2024 Anticoagulation - Warfarin Visit [facility] [address] [phone] Ave Vega LPN Deep vein thrombosis (DVT) of both upper extremities, unspecified chronicity, unspecified vein ([facility] V24, [facility] V28) (Primary Dx) 11/29/2024 [facility] [address] [place] [address] Ricky Connell MD Fitting for DME 11/29/2024 [facility] [address] [phone] Ricky Connell MD Fitting for DME ([facility] ) 11/13/2024 [facility] [address] [phone] Ricky Connell MD Foot Swelling 11/13/2024 Anticoagulation - Warfarin Visit Coumadin Clinic - [address] [phone] Zenia Lorenz LPN Deep vein thrombosis (DVT) of both upper extremities, unspecified chronicity, unspecified vein ([facility]/HCC V24, CMS/HCC V28) (Primary Dx) 11/10/2024 Telephone Internal Medicine [address] [phone] Ricky Connell MD 11/09/2024 Telephone Internal Medicine - [address] [phone] Ricky Connell MD provider call back 11/07/2024 Telephone Internal Medicine - [address] [phone] Ricky Connell MD Faxed Order ([facility] ) 11/03/2024 Anticoagulation - Warfarin Visit Coumadin [address] [phone] Dahiana Song LPN Deep vein thrombosis (DVT) of both upper extremities, unspecified chronicity, unspecified vein (CMS/HCC V24, CMS/HCC V28) (Primary Dx) 11/02/2024 Anticoagulation - Warfarin Visit Coumadin [address] [phone] Zenia Lorenz LPN Deep vein thrombosis (DVT) of both upper extremities, unspecified chronicity, unspecified vein (CMS/HCC V24, CMS/HCC V28) (Primary Dx) 10/30/2024 Telephone Internal Medicine [address] [phone] Ricky Connell MD Med Refill 10/26/2024 2:30 PM EST Office Visit Internal Medicine [address] [phone] Selene Schwab, ANDRZEJ Redness and swelling of lower leg (Primary Dx); Cellulitis of right lower extremity; Wound of right lower extremity, initial encounter 10/20/2024 [facility] [address] [place] [address] Zenia Lorenz LPN Deep vein thrombosis (DVT) of both upper extremities, unspecified chronicity, unspecified vein (CMS/HCC V24, CMS/HCC V28) (Primary Dx) from Last 3 Months Surgical History Surgery Date Site/Laterality Comments OTHER SURGICAL HISTORY PROCEDURE: MT ANES XTRPRTL LWR ABD W/URIN TRACT RENAL TRANSPL Medical History Medical History Date Comments HTN (hypertension) DX:HTN (hyper tension) Arthritis DX:Arthritis Asthma DX:Asthma DVT (deep venous thrombosis) ([facility] V24, [facility] V28) 07/16/2017 DX:DVT (deep venous thrombos is) ([facility]); COMMENT: Upper extremity, with bilateral vascular stents in the axilla On Coumadin ESRD (end stage renal diseas e) on dialysis ([facility] V24, [facility] V28) 04/19/2015 DX:ESRD (end stage renal disease) on dialysis ([facility]) S/P kidney transplant 01/10/2013 DX:S/P kid da transplant; COMMENT: Dr Brain herrera.transplant 09/25 , then removed in 2013 Progressive multifocal leukoencephalopathy ([facility] V24, [facility] V28) 02/22/2013 DX:Progressive multifocal leukoencephalopathy ([facility]); COMMENT: Dr altman did mri and pt saw dr ybarra Papanicolaou smear of cervix with atypical squamous cells of undetermined significance (ASC-US) 11/04/2017 DX:Papanicolaou sme ar of cervix with atypical squamous cells of undetermined significance (ASC-US); COMMENT: History: PAP 08/12/2017: ASCUS; High Risk HPV DNA negative 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 DX:Libia 's disease Dialysis patient ([facility] V24) 11/13/2013 D X:Dialysis patient ([facility]); COMMENT: Dr Vail On coumadin for fistula thrombosis Blindness 01/10/2013 DX:Blindness; CO MMENT: Dr dahiana sales,pap[facility]ed[facility] Dr ellis fu,[facility] previous pcp Neuro dr ybarra Allergic rhinitis 01/10/2013 DX:Allergic rh initis A-V fistula ([facility] V24) 03/21/2019 DX:A-V fistula ([facility]) Anemia 03/21/2019 DX:Anemia Family History Medical History [...] AM EDT Office Visit Internal Medicine - [address] [phone] Selene Schwab, ANDRZEJ [address] [place] [address] 10/01/2025 1:00 PM EST Office Visit Pulmonolgy - [place] [address] [phone] Shameka Amezquita MD 175 [facility] [address] [place] [address] Health Maintenance Due Date Last Done Comments [...] 04/06/2024 Cervical Cancer Screening: HPV 05/04/2024 05/04/2019 DTaP,Tdap,and Td Vaccines (3 - Td or Tdap) 08/13/2024 08/13/2014, 09/22/2010 Depression Screening 05/02/2025 05/02/2024 Diabetes: Annual GFR (Glomerular Filtration Rate) 05/02/2025 05/02/2024, 05/02/2024, 05/02/2024, Additional history exists Hypertension/CHF/CAD Annual BMP Blood Test 05/02/2025 05/02/2024, 05/02/2024, 05/02/2024, Additional history exists Influenza Vaccine (Season Ended) 2025 Cholesterol Screening (Lipid Panel) 09/20/2029 09/20/2024, 05/02/2024, [...] age to complete this topic Meningococcal B Vaccine Aged Out No l onger eligible based on patient's age to complete this topic RSV Immunization Patients Under 20 months Aged Out No longer eligible based on patient's age to complete this topic Varicella Vaccines Aged Out No longer eligible based on patient's age to complete this topic Procedures Procedure Name Priority Date/Time Associated Diagnosis Comments PROTHROMBIN TIME WITH INR Routine 01/12/2025 PROTHROMBIN TIME WITH INR Routine 01/05/2025 PROTHROMBIN TIME WITH INR Routine 12/30/2024 PROTHROMBIN TIME WITH INR Routine 12/22/2024 PROTHROMBIN TIME WITH INR Routine 12/08/2024 PROTHROMBIN TIME WITH INR Routine 12/01/2024 PROTHROMBIN TIME WITH INR Routine 11/24/2024 PROTHROMBIN TIME WITH INR Routine 11/10/2024 PROTHROMBIN TIME WITH INR Routine 11/03/2024 PROTHROMBIN TIME WITH INR Routine 10/27/2024 PROTHROMBIN TIME WITH INR Routine 10/20/2024 DEPRESSION SCREENING Routine 05/02/2024 ANNUAL BMP BLOOD TEST Routine 05/02/2024 LIPID PANEL Routine 05/02/2024 HPV Routine 05/04/2019 HEPATITIS C SCREENING Routine 08/12/2017 HIV SCREENING Routine 08/12/2017 from Last 3 Months or Most Recently Relevant to Health Maintenance Results * Prothrombin time with INR (01/12/2025) Only the most recent of11 resultswithin the time period is included. INR 2.0 Prothrombin Time POC Blood Venous blood specimen / Unknown 01/12/2025 Result [facility] Day Epstein MD LAB BLOOD ORDERABLES Final Res ult * Annual BMP Blood Test (05/02/2024) Pathologist [facility] Annual BMP Blood Test abstracted Result [facility] Provider HEALTH MAINTENANCE Final Result * Depression Screening (05/02/2024) Pathologist [facility] Depression Screening abstracted Result [facility] Historical Provider HEALTH MAINTENANCE Final Result * Lipid panel (05/02/2024) [facility] LDL/HDL Ratio 2 0 - 4 Triglycerides 80 0 - 150 mg/dL Cholesterol 112 0 - 200 mg/dL HDL 48 >=40 mg/dL LDL Cholesterol 48 0 - 100 mg/dL Blood Venous blood specimen / Unknown Result [facility] Provider LAB BLOOD ORDERABLES Afua l Result * Cervical Cancer Screening: HPV (05/04/2019) [facility] Cervical Cancer Screening: HPV negative, abstracted Result [facility] Provider HEALTH MAINTENANCE Final Result * HIV Screening (08/12/2017) [facility] HIV Screening abstracted Result [facility] Provider HEALTH MAINTENANCE Final Result * Hepatitis C Screening (08/12/2017) [facility] Hepatitis C Screening abstracted Result [facility] Historical Provider HEALTH MAINTENANCE Final Result from Last 3 Months or Most Recently Relevant to Health Maintenance Insurance * Guarantor: [employer] Account Type Relation to Patient Date of Phone Billing Address Personal/Family Self 1975 [address] [place] [address] [facility] Member Subscriber Plan / Payer (Ef fective 2019-Present) Name:[employer] V Relation to Subscriber:Self Name:Raine Hair V Payer ID:[id number] Group ID:[id number] Type:Not on file Address: [address] [address] Care Teams Groover Operator Relationship Specialty Start Date End Date Ricky Connell MD [address] [place] [id number] PCP - General Internal Medicine 07/27/17
--- OUTSIDE RECORDS SUMMARY | 2025-01-17 13:06 | XMS_ITS | Data Portability ---
Author Organization [employer] Address [address] [place] [address] Care Team Providers Care Electricity Trading Analyst Name Role Phone ALICE HARDIN Referring Provider TONY SUZIE Referring Provider [phone] Assessment Encounter Date Assessment Date Assessment LastModified by Organization Details LastModified Time 06/21/2023 06/21/2023 I provided real -time medical direction via phone for this encounter, and was available for additional phone based assistance as needed. I have reviewed and agree with the Assessment and Plan as documented by the Tanning Wheel Operator. Patient given the opportunity to ask questions. As per above, patient with recurrent boils. Id has PCP appointment tomorrow and states that these occasionally get lanced there. Per tyre builder on the scene there is no warmth [...] Assessment and Plan as documented by the Tanning Wheel Operator. Patient given the opportunity to ask questions. [...] with dialysis. There is no evidence per tyre builder on the scene, of infection that is [...] in the field was performed by my tyre builder colleague, as noted above, I provided real-time [...] steroids (1 dose now, 4 to pharmacy), residential treatment counselor on nebs Primary care, consider eval [...] [facility]/Pharmacy #[id number], [address] [place], [address], 4 21:16:55 mupirocin 2 % topical ointment [email or web address]/Pharmacy #[id number], [address] [place], [address], 3 08:31:50 Patient TargetsNo targets recorded. Patient InstructionsNo instructions recorded. Reason for Referral None Reported. Medical Equipment None Reported. Allergies Allergen ID Allergen Name Allergen Category Reaction Reaction Severity Criticality Documentation Date Start Date Code Code System Note Provider Name and Address Organization Details Recorded Time 2961 egg extract food,medi cation Not available Not available Not available 04/15/2023 90559 15 RxNorm Not Available [employer] - production 03:34:55 2962 Iodinated contrast media (substanc e) medicatio n Not available Not available Not available 04/15/2023 37677 2003 SNOMED Romana Sanders MD [address] [facility],[address], [place], [address], [facility] - [employer] 3 16:16:40 2963 influenza virus vaccine, live attenuate d Not available Not available Not available Not available 04/15/2023 66841 UNK Romana Sanders MD [address] [facility],[address], [place], [address], [facility] - [employer] 3 16:54:10 7094 vancomyci n medicatio n Not available Not available Not available 07/11/2024 22586 RxNorm Not Available [employer] - production 4 03:34:54 7095 levofloxa melissa medicatio n Not available Not available Not available 07/11/2024 09649 RxNorm Not Available [employer] - production 4 [...] Updated DateTime 3 98.3 [degF] 78 /min 425040. 632 g 16 /min 98 % 98 % 172.72 cm 160 mm[Hg] 80 mm[Hg] Not Available [employer] 3 14:40:07 Date Recorded Body weight Heart rate Oxygen saturation Oxygen saturation in Arterial blood by Pulse oximetry Body height Respiratory rate Body temperature Systolic blood pressure Diastolic blood pressure Provider Name and Address Organization Details Last Updated DateTime 3 082850. 6 g 80 /min 98 % 98 % 152.4 cm 14 /min 98.5 [degF] 110 mm[Hg] 68 mm[Hg] Not Available [employer] 3 08:29:10 Date Recorded Heart rate Body weight Respiratory rate Body temperature Body height Oxygen saturation Oxygen saturation in Arterial blood by Pulse oximetry Systolic blood pressure Diastolic blood pressure Provider Name and Address Organization Details Last Updated DateTime 4 58 /min 261201. 104 g 18 /min 98.2 [degF] 172.72 cm 99 % 99 % 197 mm[Hg] 78 mm[Hg] Not Available [employer] 4 17:41:05 Date Recorded Heart rate Body temperature Oxygen saturation Oxygen saturation in Arterial blood by Pulse oximetry Respiratory rate Systolic blood pressure Diastolic blood pressure Provider Name and Address Organization Details Last Updated DateTime 4 75 /min 97.4 [degF] 98 % 98 % 18 /min 226 mm[Hg] 103 mm[Hg] Not Available [employer] 4 21:12:28 Date Recorded Body temperature Heart rate Oxygen saturation Oxygen saturation in Arterial blood by Pulse oximetry Respiratory rate Systolic blood pressure Diastolic blood pressure Provider Name and Address Organization Details Last Updated DateTime 4 98.9 [degF] 74 /min 95 % 95 % 18 /min 198 mm[Hg] 72 mm[Hg] Not Available [employer] - production 4 16:32:44 Social History None [...] [id number] River Hernández MD Main - [facility] [address] [place] [phone] 07/16/2022 13:40:37 07/17/2022 14:35:50 Eruption [id number] R21 [id number] Tatyana Lance MD Main - [facility] [address] [place] [phone] 12/11/2022 11:10:28 12/14/2022 12:21:45 Fever [id number] R50.9 [id number] Tatyana Lance MD Main - [facility] [address] [place] [phone] 01/11/2023 17:22:42 01/13/2023 09:33:06 Dizziness [id number] R42 [id number] Alexis Roldan MD Main - [facility] [address] [place] [phone] 01/28/2023 20:02:16 01/29/2023 09:26:57 Pain of right knee region 1812752555 11870 M25.561 Knee effusion of right knee with broken patella, seen by ortho and could tolerate drainage. Dialysis patient so unable to tolerate Toradol. Will rx tylenol and lidocaine patch. Per Veronica, jonyi cation, though reviewed multiple sources and for adults oral tylenol and topical lidocaine patch are safe to take together. [id number] Shayy Nogueira MD Main - [facility] [address] [place] [phone] 02/15/2023 15:33:48 02/16/2023 15:56:09 Pain in right lower limb 880970001 M79.604 47 year old female with ESRD [...] work up if worsening or persistent symptoms. [id number] Angie Chin MD Main - [facility] [address] [place] [phone] 02/28/2023 16:31:56 03/04/2023 15:08:40 Swelling around eyes 341287284 R22.0 [id number] Alexis Roldan MD Main - [facility] [address] [place] [phone] 03/01/2023 15:25:21 03/04/2023 15:17:46 Preseptal cellulitis 087479379 L03.213 Swelling worse since yesterday (treated with Benadryl). Erythema and mild warmth on palpation. Patient legally blind so cannot report visual changes. Given worsening swelling, concern for preseptal cellulitis ; will rx MRSA coverage with Clindamyci n and Strep coverage with Cefpodoxim e. Call pharmacy to confirm renal adjustment of meds. Discussed red flag signs for which to seek care in ED. [id number] Romana Sanders MD Main - [facility] [address] [place] [phone] 04/15/2023 16:07:32 04/17/2023 11:01:49 Cough 87105620 R05.9 Lungs CTA after neb patient is [...] x-ray- note sent to CP via CRC [id number] Cristiana Ayala MD Main - [facility] [address] [place] [phone] 06/21/2023 14:40:00 06/22/2023 00:59:30 External hordeolum 5330858 H00.019 [id number] Cristiana Ayala MD Main - [facility] [address] [place] [phone] 07/09/2023 08:29:08 07/12/2023 12:36:19 Furuncle of groin 59112038 L02.224 [id number] Андрей Palm MD Main - [facility] [address] [place] [phone] 0 12/07/2023 17:41:03 12/07/2023 19:21:01 Viral gastroenteritis 554473430 A08.4 This 48-year-ol d dialysis patient M-W-F has had persist diarrhea for the past week. She has managed to consume a lot of fluids. I suggested that she try taking immodium prn diarrhea and follow-up with her PCP. She has dialysis tomorrow. The patient agreed with this plan. [id number] Libra Ramírez MD Main - [facility] [address] [place] [phone] 02/20/2024 21:12:25 02/23/2024 04:25:06 Acute exacerbation of chronic obstructive pulmonary disease [id number] J44.1 [id number] Marbin German MD Main - [facility] [address] [place] [phone] 04/03/2024 16:32:31 04/04/2024 09:49:50 Edema of lower extremity 194143050 R60.0 Health Concerns Section Related Observation LastModified by Organization Detai ls LastModified Time None Recorded Concern Status LastModified by Organization Details LastModified Time None Recorded Advance Directives Directive None Recorded Payers Insurance Date Sequence Insurance Name Policy Number Policy Pearl Covered Member ID Pearl Member ID Guarantor Name 02/15/2023 1 [facility] - DOS PRIOR TO 2022 - DUAL ELIGIBLE (MEDICARE REPLACEMENT/ADV ANTAGE - HMO) Raine gee [id number] Raine Hair 04/03/2024 1 [facility] - DOS ON OR AFTER 2022 - DUAL ELIGIBLE - LONGTERM OPTIONS AND ONE CARE (MEDICARE REPLACEMENT/ADV ANTAGE - HMO) Raine Diaz a [id number] Raine Hair Notes Date Note Type Note Provider Name and Address Organization Details Recorded Time 06/21/2023 text/html [facility] Nursing Assessment: Chief Complaints: Wound Care PMH: COPD/Asthma, Organ Transplant, Hypertension Allergies: Vancomycin, Levofloxacin, Egg Comments: Member reports having an abscess - Left groin - Denies drainage - Redness reported - It looks like a water bubble. Denies fever/chills. Elma Ayala MD [address] [facility],[address], [place], [address], [employer] 06/21/2023 14:48:53 07/08/2023 text/html [facility] Nursing Assessment: Chief Complaints: Cellulitis PMH: COPD/Asthma, Organ Transplant, Hypertension Allergies: Vancomycin, Levofloxacin, Egg Comments: Patient reports raised area to left inner thigh with concern for infection/abscess ongoing for 2 weeks. Denies fever today but felt feverish 3 days ago. Area is tender and red. No drainage. ................... ................... ................... ................... ................... ................... ................... ........ Tanning Wheel Operator Note From Vladislav Leyva: Pt caox3 complains [...] thigh near groin. Some yellow pus noted. [facility] recommends patient attend dialysis to see if she needs more IV antibiotics as that is the best treatment for this condition. Patient advised to use warm compress, hot bath, and Neosporin. Red flags and patient education discussed. Tanning Wheel Operator Allergies: Vancomycin, Levofloxacin, Egg ................... ................... ................... ................... ................... ................... ................... ........ Disposition: Fulfilled Cristiana Ayala MD [address] [place] [address],[address] [facility], [place], [address], [employer] 07/09/2023 08:37:05 12/07/2023 text/html [facility] Nurse Triage Notes (Farhana Elizondo): Chief Complaints: Pain, Weakness/Lethargy PMH: COPD/Asthma, Organ Transplant, Hypertension Allergies: Vancomycin, Levofloxacin, Egg Comments: Worsening diarrhea over the last week. Episodes of diarrhea after any PO intake. c/o weakness/fatigue, body cramping, and low back pain. Member on dialysis three times a week. Last dialysis treatment was yesterday Андрей Palm MD [address] [place] [address],[address] [facility], [place], [address], [employer] 12/07/2023 17:47:25 02/20/2024 text/html [facility] Nurse Triage [...] Organ Transplant, HypertensionAllergi es: Vancomycin, Levofloxacin, EggComments: Grinding Machine Operator verified the member's name//address and phone number. Education provided on the response time and the member was advised to monitor reported s/s and seek emergency treatment if needed Member reports feeling unwell with a cough/cold and congestion. Allergies. SOB - Breathing is non-labored - The member is speaking full sentences. S/S x 2 weeks -Denies Fever - Wellness check requested [facility] [place] HPI: several days increased cough w SOB. no increase in nebs yet. no fever, confusion, dizziness. dialysis MWF. BP has been elevated, 210 systolic at dialysis last week. currently denies blurry vision, cp, headache, weakness........... ................... ................... ................... ................... ................... ................... ................ Tanning Wheel Operator Note From Erick Iglesias: Pt reports two [...] increase nebs to q4-6h. Red flags reviewed. Tanning Wheel Operator Allergies: Vancomycin, Levofloxacin, Egg ................... ................... ................... ................... ................... ................... ................... ........ Disposition: Fulfilled Libra Ramírez MD [address] [facility],[address], [place], [address], [employer] 02/20/2024 21:50:37 04/03/2024 text/html [facility] Nurse Triage Notes (Jenniffer Rodriguez): Reason For Request: Pt reporting edema & pain of both lower extremities Chief Complaints: Edema, Pain PMH: COPD/Asthma, Organ Transplant, Hypertension Allergies: Vancomycin, Levofloxacin, Egg Comments: Grinding Machine Operator verified the member's name//address and phone number. [...] ................... ................... ................... ................... ................... ................... ........ Tanning Wheel Operator Note From Rafy Sullivan: Dispatched to the [...] ........ Disposition: Fulfilled Marbin German MD [address] [facility],[address], [place], [address], [place] [employer] 04/03/2024 23:51:42 OBGyn Episode No OBEpisode recorded.
--- OUTSIDE RECORDS SUMMARY | 2025-01-17 13:06 | XMS_ITS | Encounter Summary ---
Author Organization [facility] Address [address] [facility] [address] [place] [address] Phone Care Team Providers Care Turnaround Engineer Name Role Phone Unavailable Primary Care Provider Unavailabl e Encounter Details Date Type Department Care Team (Late st Contact Info) Description 01/15/2025 Orders Only [facility] [address] [place] [address] Amber Peralta, RN [address] [facility] [address] [place] [phone] Social History Tobacco Use Types Packs/Day Years [...]
--- OUTSIDE RECORDS SUMMARY | 2025-01-17 13:06 | XMS_ITS | Encounter Summary ---
Author Organization [facility] Address [address] [place] [address] Care Team Providers Care Laborer Poultry Hatchery Name Role Phone Ricky Connell MD Primary Care Provider [phone] Reason for Visit * Reason Onset Date Comments Faxed Order 12/15/2024 Home Care [facility] Encounter Details Date Type Department Care Team (Late st Contact Info) Description 12/15/2024 Telephone Internal Medicine - [facility] [address] [place] [phone] Ricky Connell MD [address] [place] [address] Faxed Order (Home Care [facility] ) Social [...] as of this encounter Progress Notes * Sandie Pena MA - 01/03/2025 11:46 AM EDT Signed and hand manually faxed on 12/21/2024 FRANCIA RODRIGUEZ * Norma Mortensen - 12/15/2024 3:19 PM EDT Orders from Home Care [facility] placed in Ricky Connell MD bin. Please complete and fax back to [phone]. Thank you. documented in this encounter Plan of Treatment Upcoming Encounters Date Type Department Care Team (Late st Contact Info) Description 02/01/2025 10:15 AM EDT Office Visit Internal Medicine - [facility] [address] [place] [address] Selene Schwab NP [address] [place] [address] 10/01/2025 1:00 PM EST Office Visit Pulmonolgy - [place] [address] [facility] [address] [place] [address] Shameka Amezquita MD [address] [place] [address] [place] [address] documented as of this encounter Visit Diagnoses Not on filedocumented in this encounter Care Teams Laborer Poultry Hatchery Relationship Specialty Start Date End Date Ricky Connell MD [address] [place] [address] PCP - General Internal Medicine 07/27/17 documented as of this encounter
--- OUTSIDE RECORDS SUMMARY | 2025-01-17 13:06 | XMS_ITS | Encounter Summary ---
Author Organization [facility] Address [address] [place] [address] Care Team Providers Care Oxygen Equipment Preparer Name Role Phone Ricky Connell MD Primary Care Provider [phone] Encounter Details Date Type Department Care Team (Latest Contact Info) Description 01/16/2025 Anticoagulation - Warfarin Visit Coumadin Clinic [facility] [address] [place] [address] Zenia Lorenz LPN Deep vein thrombosis (DVT) of both upper extremities, unspecified chronicity, unspecified vein (CMS/HCC V24, CMS/HCC V28) (Primary Dx) Social History Tobacco Use Types [...] AM EDT Office Visit Internal Medicine - [facility] [address] [place] [address] Selene Schwab, ANDRZEJ [address] [place] [address] 10/01/2025 1:00 PM EST Office Visit Pulmonolgy - [place] [address] [place] [phone] Shameka Amezquita MD [address] [place] [address] [place] [address] documented as of this encounter Procedures Procedure Name Priority Date/Time Associated Diagnosis Comments PROTHROMBIN TIME WITH INR Routine 01/12/2025 documented in this encounter Results * Prothrombin time with INR (01/12/2025) INR 2.0 Prothrombin Time POC Blood Venous blood specimen / Unknown 01/12/2025 Day Epstein MD LAB BLOOD ORDERABLES Final Res ult documented in this encounter Visit Diagnoses Diagnosis Deep vein thrombosis (DVT) of both upper extremities, unspecified chronicity, unspecified vein (CMS/[facility] V24, CMS/[facility] V28)- Primary documented in this encounter Care Teams Oxygen Equipment Preparer Relationship Specialty Start Date End Date Ricky Connell MD [address] [place] [address] PCP - General Internal Medicine 07/27/17 documented as of this encounter
--- OUTSIDE RECORDS SUMMARY | 2025-01-17 13:06 | XMS_ITS | Encounter Summary ---
Author Organization [facility] Address [address] [facility] [address] [place] [address] Phone Care Team Providers Care Cook Specialty Foreign Food Name Role Phone Unavailable Primary Care Provider Unavailabl e Encounter Details Date Type Department Care Team (Late st Contact Info) Description 01/15/2025 Orders Only [facility] [address] [place] [address] Amber Peralta, RN [address] [facility] [address] [place] [phone] Essential (primary) hypertension Social History Tobacco Use Types Packs/Day Years [...] as of this encounter Visit Diagnoses Diagnosis Essential (primary) hypertension documented in this encounter
--- OUTSIDE RECORDS SUMMARY | 2025-01-17 13:06 | XMS_ITS | Clinical Summary ---
Author Organization [facility], Address [address] [place] [address] Phone Care Team Providers Care Master Fire Control Technician Name Role Phone Unavailable Primary Care Provider [...] by mouth every 4 (four) hours NEEDED 06/25/20 17 Active ammonium lactate (LAC-HYDRIN) 12 % lotion Apply topically Active cetirizine (ZyrTEC) 10 MG tablet 12/31/19 21 Active cholecalciferol (VITAMIN D-3) 1.25 MG (62165 UT) capsule Take 1 capsule by mouth 1 (one) time per week 07/08/20 20 Active Docusate Sodium (DSS) 100 MG capsule Take 100 mg by mouth 2 (two) times a day 09/20/19 18 Active fluticasone (FLONASE) 50 MCG/ACT nasal spray 1 spray 2 (two) times a day 12/31/19 21 Active loratadine (Claritin) 10 MG tablet Take 1 tablet by mouth 1 (one) time each day 01/02/20 17 Active levothyroxine (SYNTHROID, LEVOTHROID) 137 MCG tablet Take 1 tablet by mouth 1 (one) time each day Active midodrine (PROAMATINE) 5 MG tablet Take 1 tablet by mouth 08/12/20 20 Active OLANZapine (ZyPREXA) 5 MG tablet Take 1 tablet by mouth every night 03/15/20 18 Active omeprazole (PriLOSEC) [address] capsule Take 20 mg by mouth 1 (one) time each day 06/17/20 17 Active warfarin (COUMADIN) 4 MG tablet Take 2 mg by mouth 1 (one) time each day 05/28/20 17 Active olopatadine (Patanol) 0.1 % ophthalmic solution 1 drop by Other route INTO AFFECTED EYE Active albuterol HFA (PROVENTIL HFA;VENTOLIN HFA) 108 (90 Base) MCG/ACT inhaler 2 puffs every 4 (four) hours 90mcg 12/31/19 21 Active montelukast (SINGULAIR) 10 MG tablet Take 10 mg by mouth Active fluticasone HFA (FLOVENT HFA) 110 MCG/ACT inhaler Inhale 2 puffs 08/01/20 18 Active diphenhydrAMINE (BENADRYL) 50 MG tablet Take 50 mg by mouth Active Clindamycin Phos-Benzoyl Perox gel APPLY TOPICALLY TO OUTBREAKS ON BUTTOCKS IN THE MORNING AND IN THE EVENING 06/27/20 16 Active cycloSPORINE (RESTASIS) 0.05 % ophthalmic emulsion 1 drop Active Banophen 50 MG capsule TAKE 1 CAPSULE BY MOUTH EVERY 6 HOURS NEEDED FOR ITCHING. 12/25/19 21 Active mupirocin (BACTROBAN) 2 % ointment Apply topically 1 (one) time each day 22 g 1 05/31/20 23 Active doxazosin (CARDURA) 4 MG tablet Take 1 tablet (4 mg total) by mouth 1 (one) time each day 30 tablet 11 06/05/20 24 025 Active sevelamer carbonate (RENVELA) 800 MG tablet TAKE 2 TABLETS BY MOUTH 3 (THREE) TIMES A DAY WITH MEALS 360 tablet 11 06/27/20 24 Active B Tnbwock-L-Rvwps Acid (Nephro Vitamins) 0.8 MG tabletIndication s:Schizophrenia (HCC) TAKE 1 TABLET BY MOUTH ONCE DAILY 90 tablet 1 08/25/20 24 Active Velphoro 500 MG chewable tablet CHEW AND SWALLOW 1 TABLET 3 (THREE) TIMES A DAY WITH MEALS 90 tablet 1 08/23/20 24 Active carvedilol (COREG) 12.5 MG tablet Take 1 tablet (12.5 mg total) by mouth in the morning and 1 tablet (12.5 mg total) in the evening. Take with meals. 60 tablet 11 10/23/19 25 026 Active polyethylene glycol (GLYCOLAX) 17 GM/SCOOP powder Take 17 g by mouth 1 (one) time each day 1530 g 3 01/16/20 25 026 Active cloNIDine (CATAPRES) 0.2 MG tabletIndication s:Essential (primary) hypertension Take 1 tablet (0.2 mg total) by mouth in the morning and 1 tablet (0.2 mg total) in the evening. 30 tablet 1 01/16/20 25 026 Active cloNIDine (CATAPRES) 0.1 MG tablet Take 1 tablet by mouth 1 (one) time each day 09/29/19 20 025 Discontinued( Dose adjustment (does not appear on AVS)) polyethylene glycol (GLYCOLAX) 17 GM/SCOOP powder Take 17 g by mouth 1 (one) time each day 1530 g 3 07/31/20 22 025 Discontinued( Reorder (does not appear on AVS)) cloNIDine (CATAPRES) 0.2 MG tabletIndication s:Essential (primary) hypertension TAKE 1 TABLET BY MOUTH IN THE MORNING AND TAKE 1 TABLET BY MOUTH IN THE EVENING 30 tablet 1 04/17/20 24 025 Discontinued( Reorder (does not appear on AVS)) Active Problems Problem Noted Date Diagnosed Date [...] renal transplant 01/10/2013 Overview (01/09/2021): Overview: Dr De La Paz nephro.transplant 09/25 It was removed in 2013 , pt is on dialysis Asthma 01/10/2013 Encounters Date Type Department Care Team Description 01/15/2025 Treatment [facility] [address] [phone] Kirill Stoll MD End stage renal disease; Dependence on renal dialysis 01/15/2025 Orders Only [facility] [address] [place] [address] Amber Peralta, RN Essential (primary) hypertension 01/15/2025 Orders Only [facility] [address] [place] [address] Amber Peralta, BERNARDO 01/08/2025 Treatment [facility] [address] [phone] Kirill Stoll MD End stage renal disease; Dependence on renal dialysis 01/03/2025 Treatment [facility] [place] [id number] [phone] Kirill Stoll MD End stage renal disease; Dependence on renal dialysis 12/25/2024 Treatment [facility] [place] [phone] [phone] Kirill Stoll MD End stage renal disease; Dependence on renal dialysis 12/15/2024 Treatment [facility] [place] [address] [phone] Kirill Stoll MD End stage renal disease; Dependence on renal dialysis 12/13/2024 Treatment [facility] [address] [phone] Kirill Stoll MD End stage renal disease; Dependence on renal dialysis 12/08/2024 Treatment [facility] [address] [phone] Kirill Stoll MD End stage renal disease; Dependence on renal dialysis 12/04/2024 Treatment [facility] [address] [phone] Kirill Stoll MD End stage renal disease; Dependence on renal dialysis 11/27/2024 Treatment [facility] [address] [phone] Kirill Stoll MD End stage renal disease; Dependence on renal dialysis 11/20/2024 Treatment [facility] [address] [phone] Kirill Stoll MD End stage renal disease; Dependence on renal dialysis 11/13/2024 Treatment [facility] [address] [phone] Kirill Stoll MD End stage renal disease; Dependence on renal dialysis 11/10/2024 Treatment [facility] [address] [phone] Kirill Stoll MD End stage renal disease; Dependence on renal dialysis 11/03/2024 Treatment [facility] [address] [phone] Kirill Stoll MD 10/23/2024 Treatment [facility] [address] [phone] Kirill Stoll MD from Last 3 Months [...] Risk Dialysis 4-dose series) 1993 Pneumococcal Vaccine: 50+ Ye ars (2 of 2 - PCV) 06/12/2018 06/12/2017 Colonoscopy (Post-Transplant Patient) 01/09/2021 Mammogram (Post-Transplant Patient) 01/09/2021 Pelvic Exam (Post-Transplant Patient) 01/09/2021 Diabetes: Hemoglobin A1C 10/19/2024 022, 03/18/2022, 12/17/2021, Additional history exists Diabetes: Ophthalmology Exam 10/19/2024 Diabetes: Pedal Pulse Checked 10/19/2024 Diabetes: Sensory Foot Exam 10/19/2024 Diabetes: Visual Foot Exam 10/19/2024 Pneumococcal Vaccine: Peds ( 0 to 5 Years) and At-Risk Patients (6 to 49 Years) Discontinued 06/12/2017 Procedures Procedure Name Priority Date/Time Associated Diagnosis Comments HEMOGLOBIN Routine 01/10/2025 3:00 AM EDT HEMOGLOBIN Routine 01/03/2025 3:00 AM EDT HEMOGLOBIN AND HEMATOCRIT, BLOOD Routine 12/27/2024 3:00 AM EDT FERRITIN Routine 12/13/2024 3:00 AM EDT PTH, INTACT Routine 12/13/2024 3:00 AM EDT TRANSFERRIN SATURATION Routine 3:00 AM EDT PROTEIN, TOTAL, SERUM Routine 12/13/2024 3:00 AM EDT MAGNESIUM Routine 12/13/2024 3:00 AM EDT LIPID PANEL Routine 12/13/2024 3:00 AM EDT ELECTROLYTE PANEL Routine 12/13/2024 3:0 0 AM EDT LACTATE DEHYDROGENASE Routine 12/13/2024 3:00 AM EDT LIH (HC) Routine 12/13/2024 3:00 AM EDT GLUCOSE, RANDOM Routine 12/13/2024 3:00 AM EDT BILIRUBIN, TOTAL Routine 12/13/2024 3:00 AM EDT CREATININE, SERUM Routine 12/13/2024 3:0 0 AM EDT AST Routine 12/13/2024 3:00 AM EDT CALCIUM PHOSPHORUS PRODUCT, ADJUSTED (HC) Routine 12/13/2024 3:00 AM EDT ALT Routine 12/13/2024 3:00 AM EDT ALKALINE PHOSPHATASE Routine 12/13/2024 3:00 AM EDT CBC AND DIFFERENTIAL Routine 12/13/2024 3:00 AM EDT KT/V NATURAL LOG, URR (HC) Routine 12/13/2024 3:00 AM EDT HEMOGLOBIN AND HEMATOCRIT, BLOOD Routine 11/29/2024 3:00 AM EDT HEMOGLOBIN Routine 11/22/2024 3:00 AM EDT PTH, [...] HEMATOCRIT, BLOOD Routine 11/01/2024 3:00 AM EST SPECIAL CHEMISTRY Routine 06/17/2022 6:0 0 AM EDT from Last 3 Months or Most Recently Relevant to Health Maintenance Results * (ABNORMAL) Hemoglobin (01/10/2025 3:00 AM EDT) Only the most recent of3 resultswithin the time period is included. Hgb 10.0(L) 11.2 - 15.7 g/dL [facility] Hemoglobin x 3 30.0(L) 33.6 - 47.1 g/dL [facility] 01/10/2025 3:00 AM EDT 01/11/2025 1:08 PM EDT Kirill Stoll MD LAB BLOOD ORDERABLES Final Re sult Performing Organization Address [facility] Co de Phone Number [facility] [address] [place] [address] * (ABNORMAL) Hemoglobin and hematocrit (12/27/2024 3:00 AM EDT) Only the most recent of3 resultswithin the time period is included. Hgb 9.0(L) 11.2 - 15.7 g/dL [facility] Hematocrit 29.5(L) 34.1 - 44.9 % [facility] Hemoglobin x 3 27.0(L) 33.6 - 47.1 g/dL [facility] 12/27/2024 3:00 AM EDT 12/28/2024 12:32 PM EDT Kirill Stoll MD LAB BLOOD ORDERABLES Final Re sult Performing Organization Address City/[facility] Co de Phone Number [facility] [address] [place] [address] * LIH (12/13/2024 3:00 AM EDT) Only the most recent of2 resultswithin the time period is included. Lipemia Normal Normal [facility] Icterus Normal Normal [facility] Hemolysis Normal Normal [facility] 12/13/2024 3:00 AM EDT 12/15/2024 4:41 PM EDT Kirill Stoll MD LAB [id number] SOLICITED RESULTS Final Result Performing Organization Address [facility] de Phone Number [facility] [address] [place] [address] * (ABNORMAL) Kt/V Natural Log, URR (12/13/2024 3:00 AM EDT) Only the most recent of2 resultswithin the time period is included. Treatment Time 242 min [facility] Pre-Weight, lb 106.5 kg [facility] Post-Weight, lb 103.1 kg [facility] Ultrafiltration Rate 8 <=13 mL/kg/hr [facility] Comment: Recommend achieving Ultrafiltration Rate (UFR) <=10 mL/kg/hr References: Rhonda MOSS et al. Kidney Int. 2010; 79(2):250-257 BUN 63(H) 7 - 25 mg/dL [facility] BUN Post Dialysis 20 7 - 25 mg/dL [facility] UREA REDUCTION RATIO (%) 68 >=65 % [facility] Kt/V Natural Log 1.35 >=1.2 [facility] 12/13/2024 3:00 AM EDT 12/15/2024 4:33 PM EDT Kirill Stoll MD LAB [id number] SOLICITED RESULTS Final Result Performing Organization Address [facility] de Phone Number [facility] [address] [place] [address] * Calcium Phosphorus Product, Adjusted (12/13/2024 3:00 AM EDT) Only the most recent of2 resultswithin the time period is included. Albumin 4.3 3.6 - 5.4 g/dL [facility] Calcium 8.8 8.6 - 10.3 mg/dL [facility] Phosphorus, Serum 4.7 2.5 - 5.0 mg/dL [facility] Ca*PO4 41.4 <55.0 mg2/dL2 [facility] Calcium, Adjusted Total 8.8 8.6 - 10.3 mg/dL [facility] CA*PO4 CORRCTD 41.4 <55.0 mg2/dL2 [facility] 12/13/2024 3:00 AM EDT 12/15/2024 4:41 PM EDT Kirill Stoll MD LAB [id number] SOLICITED RESULTS Final Result Performing Organization Address [facility] de Phone Number [facility] [address] [place] [address] * (ABNORMAL) TSAT (12/13/2024 3:00 AM EDT) Only the most recent of2 resultswithin the time period is included. [facility] Iron 173(H) 50 - 170 ug/dL [facility] Transferrin 133(L) 250 - 380 mg/dL [facility] TIBC 186(L) 211 - 406 ug/dL [facility] Iron Saturation (TSat) 93(H) 22 - 52 % [facility] 12/13/2024 3:00 AM EDT 12/15/2024 4:41 PM EDT Kirill Stoll MD LAB BLOOD ORDERABLES Final Re sult Performing Organization Address [facility] Co de Phone Number [facility] [address] [place] [address] * (ABNORMAL) CBC and Differential (12/13/2024 3:00 AM EDT) Only the most recent of2 resultswithin the time period is included. [facility] DIFFERENTIAL MANUAL, 2 Not Indicated [facility] White Blood Cells 5.9 4.0 - 10.0 K/uL [facility] RBC 3.22(L) 3.93 - 5.22 M/uL [facility] Hgb 9.8(L) 11.2 - 15.7 g/dL [facility] Hemoglobin x 3 29.4(L) 33.6 - 47.1 g/dL [facility] Hematocrit 31.5(L) 34.1 - 44.9 % [facility] MCV 97.8(H) 79.4 - 94.8 fL [facility] MCH 30.4 25.6 - 32.2 pg [facility] MCHC 31.1(L) 32.2 - 35.5 g/dL [facility] Platelets 145(L) 182 - 369 K/uL [facility] RDW 14.8(H) 11.7 - 14.4 % [facility] Neutrophils Relative 69.8 34.0 - 71.1 % [facility] Lymphocytes Relative 15.2(L) 19.3 - 51.7 % [facility] Monocytes 8.4 4.7 - 12.5 % [facility] Eosinophils Relative 5.4 0.7 - 5.8 % [facility] Basophils Relative 0.7 0.1 - 1.2 % [facility] Immature Granulocytes 0.5 0.0 - 1.0 % [facility] 12/13/2024 3:00 AM EDT 12/15/2024 4:57 PM EDT Kirill Stoll MD LAB BLOOD ORDERABLES Final Re sult Performing Organization Address [facility] de Phone Number [facility] [address] [place] [address] * ALT (12/13/2024 3:00 AM EDT) Only the most recent of2 resultswithin the time period is included. ALT (SGPT) 38 10 - 49 U/L [facility] 12/13/2024 3:00 AM EDT 12/15/2024 4:41 PM EDT Kirill Stoll MD LAB BLOOD ORDERABLES Final Re sult Performing Organization Address [facility] Co de Phone Number [facility] [address] [place] [address] * AST (12/13/2024 3:00 AM EDT) Only the most recent of2 resultswithin the time period is included. AST (SGOT) 27 <34 U/L [facility] 12/13/2024 3:00 AM EDT 12/15/2024 4:41 PM EDT Kirill Stoll MD LAB BLOOD ORDERABLES Final Re sult Performing Organization Address [facility] de Phone Number [facility] [address] [place] [address] * Protein, total (12/13/2024 3:00 AM EDT) Only the most recent of2 resultswithin the time period is included. Total Protein 7.2 6.4 - 8.9 g/dL [facility] 12/13/2024 3:00 AM EDT 12/15/2024 4:41 PM EDT Kirill Stoll MD LAB BLOOD ORDERABLES Final Re sult Performing Organization Address [facility] de Phone Number [facility] [address] [place] [address] * (ABNORMAL) Alkaline phosphatase (12/13/2024 3:00 AM EDT) Only the most recent of2 resultswithin the time period is included. Alkaline Phosphatase 599(H) 46 - 116 U/L [facility] 12/13/2024 3:00 AM EDT 12/15/2024 4:41 PM EDT Kirill Stoll MD LAB BLOOD ORDERABLES Final Re sult Performing Organization Address [facility] de Phone Number [facility] [address] [place] [address] * (ABNORMAL) PTH, Intact (12/13/2024 3:00 AM EDT) Only the most recent of2 resultswithin the time period is included. PTH, Intact 3,863(H) 160 - 721 pg/mL [facility] Comment: Suggested (KDIGO) ESRD maintenance range is two to nine times the upper normal limit (80.1 pg/mL) for the laboratory. 12/13/2024 3:00 AM EDT 12/15/2024 4:41 PM EDT Kirill Stoll MD LAB BLOOD ORDERABLES Final Re sult Performing Organization Address [facility] de Phone Number [facility] [address] [place] [address] * Magnesium (12/13/2024 3:00 AM EDT) Only the most recent of2 resultswithin the time period is included. Magnesium 1.9 1.9 - 2.7 mg/dL [facility] 12/13/2024 3:00 AM EDT 12/15/2024 4:41 PM EDT Kirill Stoll MD LAB BLOOD ORDERABLES Final Re sult Performing Organization Address [facility] de Phone Number [facility] [address] [place] [address] * (ABNORMAL) Lactate dehydrogenase (12/13/2024 3:00 AM EDT) Only the most recent of2 resultswithin the time period is included. LDH 314(H) 120 - 246 U/L [facility] 12/13/2024 3:00 AM EDT 12/15/2024 4:41 PM EDT Kirill Stoll MD LAB BLOOD ORDERABLES Final Re sult Performing Organization Address [facility] de Phone Number [facility] [address] [place] [address] * Glucose, random (12/13/2024 3:00 AM EDT) Only the most recent of2 resultswithin the time period is included. Glucose 84 74 - 109 mg/dL [facility] 12/13/2024 3:00 AM EDT 12/15/2024 4:41 PM EDT Kirill Stoll MD LAB BLOOD ORDERABLES Final Re sult Performing Organization Address [facility] Co de Phone Number [facility] [address] [place] [address] * (ABNORMAL) Ferritin (12/13/2024 3:00 AM EDT) Only the most recent of2 resultswithin the time period is included. Ferritin 1,906(H) 10 - 291 ng/mL [facility] 12/13/2024 3:00 AM EDT 12/15/2024 4:41 PM EDT Kirill Stoll MD LAB BLOOD ORDERABLES Final Re sult Performing Organization Address [facility] de Phone Number [facility] [address] [place] [address] * (ABNORMAL) Creatinine, serum (12/13/2024 3:00 AM EDT) Only the most recent of2 resultswithin the time period is included. Creatinine 7.96(H) 0.55 - 1.02 mg/dL [facility] 12/13/2024 3:00 AM EDT 12/15/2024 4:41 PM EDT Kirill Stoll MD LAB BLOOD ORDERABLES Final Re sult Performing Organization Address [facility] de Phone Number [facility] [address] [place] [address] * Bilirubin, total (12/13/2024 3:00 AM EDT) Only the most recent of2 resultswithin the time period is included. Total Bilirubin 0.3 0.3 - 1.2 mg/dL [facility] 12/13/2024 3:00 AM EDT 12/15/2024 4:41 PM EDT Kirill Stoll MD LAB BLOOD ORDERABLES Final Re sult Performing Organization Address [facility]/State/ZIP Co de Phone Number [facility] [address] [place] [address] * (ABNORMAL) Lipid panel (12/13/2024 3:00 AM EDT) Cholesterol 132 <200 mg/dL [facility] Comment: Optimal: ?<200 Borderline: ? 200-239 Higher Risk: ?>239 Triglycerides 96 <150 mg/dL [facility] Comment: Optimal: ?<150 Borderline High: ??150-199 High: ? 200-499 Very High: ?>499 HDL 52(A) >59 mg/dL [facility] Comment: Desirable: ?>59 Higher Risk: ?<40 LDL-Calc 61 <100 mg/dL [facility] Comment: Optimal: ?<100 Above Optimal: ?100-129 Borderline High: ??130-159 High: ? 160-189 Very High: ?>189 VLDL Cholesterol Placido 19 <30 mg/dL [facility] Comment: Optimal: ?<30 Borderline High: ??30-39 High: ? 40-99 Very High: ?>99 Chol/HDL Ratio 2.5 <3.3 [facility] Comment: Optimal: ?<3.3 Higher Risk: ?>6.2 12/13/2024 3:00 AM EDT 12/15/2024 4:41 PM EDT us Kirill Stoll MD LAB BLOOD ORDERABLES Final Re sult [facility] [address] [place] [address] * (ABNORMAL) Electrolyte panel (12/13/2024 3:00 AM EDT) Only the most recent of2 resultswithin the time period is included. Sodium 137 136 - 145 mEq/L [facility] Potassium 5.1(H) 3.4 - 5.0 mEq/L [facility] Chloride 99 98 - 107 mEq/L [facility] Bicarbonate (CO2) 26 21 - 31 mEq/L [facility] Anion Gap 12 3 - 14 mEq/L [facility] 12/13/2024 3:00 AM EDT 12/15/2024 4:41 PM EDT Kirill Stoll MD LAB BLOOD ORDERABLES Final Re sult [facility] [address] [place] [address] * SPECIAL CHEMISTRY (06/17/2022 6:00 AM EDT) Hemoglobin A1C 5.2 4.8 - 5.9 % [facility] 06/17/2022 6:00 AM EDT 06/18/2022 6:40 AM EDT Narrative [facility] - 06/17/2022 6:00 AM EDT Unless otherwise specified, test(s) performed at: [facility], [address] [place] [id number] [employer] LAYER: Javier Schmidt M.D. For any questions, please call customer service at FREQUENCY:QUARTERLY Resulting Agency Comment Specimen source: Blood Kirill Stoll MD LAB BLOOD BANK TEST ORDERABLE S Final Result [facility] from Last 3 Months or Most Recently Relevant to Health Maintenance Insurance * Guarantor: Raine Hair V Account Type Relation to Patient Date of Phone Billing Address Personal/Family Self 1975 [address] [place] [address] [facility] ([id number]) [facility] [place] [id number] [address] [address] [facility] ([id number])
[2025-01-17 14:09] LABS: Basophils Absolute Auto 0.1 X10*3/uL (0.0-0.2); Basophils Percent Auto 1.9 % (0-2); Eosinophils Percent Auto 1.1 % (0-4); Hematocrit 35.3 % (37.0-47.0); Hemoglobin 11.1 g/dl (12.0-16.0); Imm Gran Abs Auto 0.05 X10*3/uL (0.00-0.03); Imm Gran Pct Auto 1.9 % (0.0-0.4); Lymphocytes Absolute Auto 0.3 X10*3/uL (1.2-4.9); Lymphocytes Percent Auto 11.7 % (20-40); MANUAL DIFF FLAG SCAN; Mean Corpuscular HGB Conc 31.4 g/dl (31.0-35.0); Mean Corpuscular Hemoglobin 30.7 pg (27.0-33.0); Mean Corpuscular Volume 97.8 fL (80.0-98.0); Mean Platelet Volume 11.7 fL (9.4-12.3); Monocytes Absolute Auto 0.5 X10*3/uL (0.1-1.2); Monocytes Percent Auto 20.4 % (2-11); Neutrophils Absolute Auto 1.7 x10*3/uL (2.0-8.3); Red Blood Count 3.61 X10*6/uL (4.20-5.50); Red Cell Distribution Width 15.7 % (11.0-16.0); SCAN SMEAR FLAG 1; White Blood Count 2.7 X10*3/uL (4.8-10.8)
[2025-01-17 14:15] LABS: Alanine Aminotransferase 33 U/L (0-31); Albumin Level 3.9 g/dL (3.5-5.0); Alkaline Phosphatase 579 U/L (39-117); Anion Gap 16 (12-20); Aspartate Amino Transferase 34 U/L (5-31); Bilirubin Direct 0.3 mg/dL (0.0-0.5); Bilirubin Total 0.9 mg/dL (0.0-1.0); Blood Urea Nitrogen 24 mg/dL (9-16); Calcium 8.6 mg/dL (8.4-10.2); Carbon Dioxide 25 mmol/L (22-29); Chloride 101 mmol/L (96-108); Creatinine Clr Calc Pharmacy 16.1; Estimated Glomerular Filt Rate 9; Glucose Random 91 mg/dL (60-115); Lipase 97 U/L (8-78); Potassium 4.1 mmol/L (3.3-5.1); Sodium 138 mmol/L (135-145); Total Protein 7.3 g/dL (6.5-8.0)
[2025-01-17 14:22] LABS: Troponin-I High Sensitivity 86.6 ng/L (<3.5-17.0)
[2025-01-17 14:34] LABS: Platelet Count 97 X10*3/uL (160-400); SLIDE REVIEW VERIFIED
[2025-01-17 14:34] LABS: Influenza A PCR NEGATIVE (Negative); Influenza B PCR NEGATIVE (Negative); Resp Syncy Virus RNA Qual PCR NEGATIVE (Negative); SARS COV2 PCR INHOUSE POSITIVE (Negative)
[2025-01-17 14:36] VITALS: BP 161/65; PULSE 76; RESP 18; O2SAT 96
--- NOTE | 2025-01-17 14:48 | PC.NURSE ---
Trop elevated. Patient reassessed. pt denies CP, Back pain or abdominal pain of any kind. EKG ordered.
[2025-01-17 15:01] LABS: Basophils Percent Auto 0.8 % (0-2); Eosinophils Percent Auto 1.6 % (0-4); Hematocrit 32.6 % (37.0-47.0); Hemoglobin 10.3 g/dl (12.0-16.0); Imm Gran Abs Auto 0.01 X10*3/uL (0.00-0.03); Imm Gran Pct Auto 0.4 % (0.0-0.4); Lymphocytes Absolute Auto 0.2 X10*3/uL (1.2-4.9); Lymphocytes Percent Auto 9.2 % (20-40); MANUAL DIFF FLAG SCAN; Mean Corpuscular HGB Conc 31.6 g/dl (31.0-35.0); Mean Corpuscular Hemoglobin 30.5 pg (27.0-33.0); Mean Corpuscular Volume 96.4 fL (80.0-98.0); Mean Platelet Volume 11.9 fL (9.4-12.3); Monocytes Absolute Auto 0.6 X10*3/uL (0.1-1.2); Monocytes Percent Auto 22.1 % (2-11); Neutrophils Absolute Auto 1.6 x10*3/uL (2.0-8.3); Neutrophils Percent Auto 65.9 % (45-73); Platelet Count 101 X10*3/uL (160-400); Red Blood Count 3.38 X10*6/uL (4.20-5.50); Red Cell Distribution Width 15.9 % (11.0-16.0); SCAN SMEAR FLAG 1
[2025-01-17 15:03] LABS: White Blood Count 2.5 X10*3/uL (4.8-10.8)
[2025-01-17 15:17] LABS: Troponin-I High Sensitivity 91.5 ng/L (<3.5-17.0)
[2025-01-17 17:10] LABS: Troponin-I High Sensitivity 100.7 ng/L (<3.5-17.0)
[2025-01-17 17:55] VITALS: BP 177/80; PULSE 77; RESP 22; TEMP 37.4; O2SAT 97
[2025-01-17] MEDS: Acetaminophen 325 MG TABLET 975 MG PO (18:17)
--- NOTE | 2025-01-17 19:15 | PC.NURSE ---
pt alert and awake at this time, requesting food and gingerale, pt given at this time. pt offers no complaints.
[2025-01-17 20:21] VITALS: BP 150/80; PULSE 84; RESP 18; TEMP 37; O2SAT 98
== END 2025-01-17 20:22 | disposition home or self-care (01) ==
PROVIDERS: Emergency Provider Emergency Medicine
DX: U07.1 COVID-19 (principal); R50.9 Fever, unspecified; R79.89 Other specified abnormal findings of blood chemistry; R94.31 Abnormal electrocardiogram [ECG] [EKG]; Z79.899 Other long term (current) drug therapy
CPT/HCPCS: 0241U; 36415; 71045; 80048; 80076; 82947; 83690; 84484; 85025; 93005; 99283; 99285

== ENCOUNTER → 2025-01-17 13:21 | Outpatient (BNV) | payer OTHER, SELFPAY | PROVIDERS: Emergency Provider Emergency Medicine; Visit Provider Radiology Diagnostic Radiology | DX: J81.0 Acute pulmonary edema (principal) | CPT/HCPCS: 71045 ==

== ENCOUNTER → 2025-01-17 14:41 | Outpatient (BNV) | payer OTHER, SELFPAY | PROVIDERS: Emergency Provider Emergency Medicine; Visit Provider Internal Medicine | DX: I51.7 Cardiomegaly (principal) | CPT/HCPCS: 93010 ==